=== PATIENT | male | born 1985 | race Caucasian/White ===

== ENCOUNTER 2019-07-09 01:00 | Inpatient (IN) | payer MEDICAID, SELFPAY ==
[2019-07-09] VITALS (10 sets, daily range): BP systolic 112–154; BP diastolic 59–88; PULSE 71–108; RESP 16–22; TEMP 35.9–37.1; O2SAT 97–100; BMI 32.2
--- NOTE | ~2019-07-09 | CT_ITS ---
EXAMINATION: CT pelvis wo con DATE: 07/14/2019 10:46 INDICATION: Left gluteal mass. TECHNIQUE: Computed tomography (CT) of the pelvis was performed without intravenous contrast. Automat ed exposure control and iterative reconstruction technique were employed. The dose-length product was 1604.44 mGy-cm. COMPARISON: Lumbar spine MRI 07/14/2019 FINDINGS: There are mixed solid and cystic masses including areas of hyperdense hematoma involving nu merous muscles bilaterally. Involved muscles on the left include the gluteus minimus, gluteus medius, gluteus katherine, piriformis, obturator internus, inferior gemellus, abductor porsha, vastus medialis , and vastus lateralis. Involved muscles on the right include the obturator internus, inferior gemell us, rectus femoris, vastus medialis, and vastus lateralis. There is bilateral subcutaneous edema. The re is a small volume of ascites. The bones are unremarkable. IMPRESSION: 1. Extensive distribution of abnormal musculature bilaterally, consistent with rhabdomyolysis. Reviewed, dictated and finalized at location A. EYANCER
--- NOTE | ~2019-07-09 | US_ITS ---
EXAMINATION: US venous doppler [facility] DATE: 07/10/2019 10:56 INDICATION: Right lower limb swelling TECHNIQUE: Grayscale ultrasound images without and with compression and Doppler ultrasound images of the bilateral lower extremity veins were obtained. COMPARISON: None. FINDINGS: The visualized portions of right common femoral vein, profunda (deep) femoral vein, femoral vein, pop liteal vein, posterior tibial veins, peroneal veins, gastrocnemius vein and greater saphenous vein ou tflow are patent. Short segment of noncompressible occlusive deep venous thrombosis in one of the paired left posterior tibial veins at the mid calf. The second of the paired left posterior tibial veins are patent. The v isualized portions of left common femoral vein, profunda femoral vein, femoral vein, popliteal vein, peroneal veins, gastrocnemius vein and greater saphenous vein outflow are patent. IMPRESSION: 1. Deep venous thrombosis in one of the paired left posterior tibial veins at the mid left calf. Fin dings were discussed with Joceline Rodriguez, the nurse caring for the patient, at 11:00 AM. 2. No deep venous thrombosis in the right lower limb. Reviewed, dictated and finalized at location A. TIME ENGINEER IMPRESSION: 1. Deep venous thrombosis in one of the paired left posterior tibial veins at the mid left calf. Findings were discussed with Joceline Rodriguez, the nurse sena for the patient, at 11:00 AM. 2. No deep venous thrombosis in the right lower limb.
--- NOTE | ~2019-07-09 | XR_ITS ---
EXAMINATION: XR chest 2V DATE: 07/20/2019 09:26 INDICATION: Fever TECHNIQUE: AP and lateral views of the chest are obtained. COMPARISON: None available FINDINGS: There are minimal airspace opacities of the lower lobes. There is no pleural effusion or pn eumothorax. The cardiomediastinal silhouette is normal. The visualized bones and soft tissues are unr emarkable. IMPRESSION: 1. Mild bibasilar airspace opacity, likely atelectasis. Reviewed, dictated and finalized at location A. TROCARDIOGRAPH REPAIRER
--- NOTE | ~2019-07-09 | CT_ITS ---
EXAMINATION: CT brain wo con DATE: 07/09/2019 03:07 INDICATION: Confusion. TECHNIQUE: Computed tomography (CT) of the head was performed without intravenous contrast. The mA wa s adjusted according to patient size. Iterative reconstruction technique was employed. The dose-lengt h product was 605.33 mGy-cm. COMPARISON: None FINDINGS: There is no intracranial hemorrhage, acute infarction, or abnormal intracranial mass lesion . The ventricles are normal in size. The paranasal sinuses are clear. The orbits are normal. The mast oid air cells are normal. IMPRESSION: 1. Normal brain. Reviewed, dictated and finalized at location A. E WINDER IMPRESSION: 1. Normal brain.
--- NOTE | ~2019-07-09 | MR_ITS ---
EXAMINATION: MR brain/brain stem wo con EXAM DATE: 07/11/2019 16:59 INDICATION: Confusion. TECHNIQUE: Magnetic resonance imaging (MRI) of the brain/brain stem obtained without contrast. Jalenitt al T1, axial diffusion, gradient echo (T2*), T1, T2, FLAIR sequences obtained. There is no prior st udy for comparison. FINDINGS: There is punctate acute infarction in the right frontal lobe. There is no acute hemorrhage seen on the T2*, a hemosiderin sensitive sequence. No intraparenchymal brain mass. The ventricles ar e normal in size. There are no extra-axial collections. Flow voids are seen in the cerebral arterie s on the T2-weighted sequences consistent with their expected patency. The orbits are unremarkable. Soft tissue is unremarkable. IMPRESSION: 1. Punctate acute right frontal lobe infarction. Reviewed, dictated and finalized at location A. ESTRATOR
--- NOTE | ~2019-07-09 | MR_ITS ---
EXAMINATION: MR lumbar spine wo con DATE: 07/14/2019 09:31 INDICATION: Left-sided lumbar radiculopathy. Back pain. TECHNIQUE: Magnetic resonance imaging (MRI) of the lumbar spine was performed without intravenous con trast. Sequences included sagittal T2-weighted FSE, sagittal T2-weighted FS FSE, sagittal T1-weighted FSE, and axial T2-weighted FSE. COMPARISON: Lumbar spine radiographs 05/26/2010 FINDINGS: The bandoleer packer images demonstrate a large cystic mass in the left gluteal muscles. Bone alignmen t is normal. Vertebral body heights are normal. There is mildly decreased disc height at L1-L2 and L4 -L5. The distal spinal cord signal intensity is normal. The conus medullaris is at L1. The following disc levels are specifically discussed: L1-L2: The disc is bulging. There is no facet joint osteoarthritis. There is no neural foraminal sten osis. There is mild central canal stenosis. L2-L3: The disc does not extend beyond the endplate margin. There is mild bilateral facet joint osteo arthritis. There is no neural foraminal stenosis. There is no central canal stenosis. L3-L4: The disc is mildly bulging. There is mild bilateral facet joint osteoarthritis. There is mild bilateral neural foraminal stenosis. There is no central canal stenosis. L4-L5: The disc is bulging and has an annular fissure. There is mild bilateral facet joint osteoarthr itis. There is mild right and moderate left neural foraminal stenosis. There is mild central canal st enosis. L5-S1: The disc does not extend beyond the endplate margin. There is mild bilateral facet joint osteo arthritis. There is no neural foraminal stenosis. There is no central canal stenosis. IMPRESSION: 1. Partially visualized large cystic mass in the left gluteal muscles. The differential diagnosis inc ludes hematoma, abscess, and malignancy. Pelvis CT without intravenous contrast is recommended. I elvira led this result to Dr. Johnson on 07/14/19 at 10:11 AM. 2. Mild lumbar spondylosis. Reviewed, dictated and finalized at location A. ONAL SALES EXECUTIVE IMPRESSION: 1. Partially visualized large cystic mass in the left gluteal muscles. The diff erential diagnosis includes hematoma, abscess, and malignancy. Pelvis CT withou t intravenous contrast is recommended. I called this result to Dr. Johnson on at 10:11 AM. 2. Mild lumbar spondylosis.
--- NOTE | ~2019-07-09 | US_ITS ---
EXAMINATION: US venous doppler [facility] DATE: 07/19/2019 13:12 INDICATION: Left lower limb swelling. TECHNIQUE: Grayscale ultrasound images without and with compression and Doppler ultrasound images of the bilateral lower extremity veins were obtained. COMPARISON: Ultrasound 07/16/2019 FINDINGS: The visualized portions of right common femoral vein, profunda (deep) femoral vein, femoral vein, pop liteal vein, peroneal veins, posterior tibial veins, and greater saphenous vein outflow are patent. The visualized portions of left common femoral vein, profunda femoral vein, femoral vein, popliteal v ein, peroneal veins, posterior tibial veins, and greater saphenous vein outflow are patent. IMPRESSION: 1. No deep venous thrombosis. Reviewed, dictated and finalized at location A. T CONTROLLER
--- NOTE | ~2019-07-09 | US_ITS ---
EXAMINATION: US venous doppler [facility] DATE: 07/16/2019 16:06 INDICATION: Lower limb swelling. TECHNIQUE: Grayscale ultrasound images without and with compression and Doppler ultrasound images of the bilateral lower extremity veins were obtained. COMPARISON: Ultrasound 07/10/2019 FINDINGS: The visualized portions of right common femoral vein, profunda (deep) femoral vein, femoral vein, pop liteal vein, peroneal veins, posterior tibial veins, and greater saphenous vein outflow are patent. The visualized portions of left common femoral vein, profunda femoral vein, femoral vein, popliteal v ein, peroneal veins, posterior tibial veins, and greater saphenous vein outflow are patent. IMPRESSION: 1. No deep venous thrombosis. Reviewed, dictated and finalized at location A. TRIC DOLLY OPERATOR
--- NOTE | ~2019-07-09 | US_ITS ---
EXAMINATION: US renal BI DATE: 07/10/2019 10:57 INDICATION: Acute renal failure. TECHNIQUE: Multiple ultrasound grayscale images of the kidneys were obtained. COMPARISON: None. FINDINGS: The right kidney measures 11.5 x 5.7 x 5.2 cm. The left kidney measures 11.5 x 5.3 x 5.1 cm. The kidn eys demonstrate normal parenchymal echogenicity. There is no hydronephrosis. The bladder is decompres sed by a Gutierrez catheter. IMPRESSION: 1. Normal kidneys. No hydronephrosis. Reviewed, dictated and finalized at location B. S CHASER
--- NOTE | 2019-07-09 01:09 | ED.AMS ---
HPI - Altered Mental Status General Chief Complaint: Unspecified Stated Complaint: altered mental status? Time Seen by Provider: 07/09/19 01:08 Source: patient, old records reviewed and other (Pt's girlfriend) Mode of arrival: ambulatory Limitations: no limitations History of Present Illness HPI narrative: The pt is a 33 y/o male who presents to the ED c/o confusion onset couple of days ago. Pt's girlfriend states that the pt was at this ED 3-4 days ago due to BLE pain. Per old records, pt presented to this ED on 07/05/19. She states that the past couple of days, the pt repetitively uttered the phrases What day is it? and How long have I been faded? despite the fact that he has not used any drugs. She states that the pt also could not remember information such as the President. She also states that she has only witnessed the pt go to the bathroom once in the past few days since she had to walk him there. The pt notes that he is experiencing bilateral calf pain onset four days ago, as well as BLE numbness which has occurred since the pain began. The pt denies dysuria, frequency, back pain, OG, numbness/tingling to the genitals, or feeling the urge to urinate. The pt notes that he has not suffered any recent falls, and that he does smoke cigarettes. Pt's girlfriend states that the pt does not have any PCP. MD complaint: confusion Onset (ago): day(s) (A couple) Consistency of symptoms: unknown Associated symptoms: other (Bilateral calf pain (Onset 4 days ago), BLE numbness (Onset 4 days ago)) Treatments prior to arrival: other (None) Related Data Allergies Allergy/AdvReac Type Severity Reaction Status Date / Time No Known Allergies Allergy Mild Verified 07/30/10 15:32 Review of Systems Review of Systems: All systems reviewed & are unremarkable except as noted in HPI and below Genitourinary: Genitourinary: Denies dysuria, Denies urinary frequency and Denies urinary urgency Musculoskeletal: Musculoskeletal: Denies back pain and Reports other (Bilateral calf pain (Onset 4 days ago)) Neurologic: Reports confusion, Denies headache(s), Reports numbness (BLE (Onset 4 days ago); denies any in the genitals) and Denies tingling (Genital) PMFSH Past Medical History Medical History Healthy adult Surgical History Surgical History No history of previous surgery Family History Family History (Updated 07/09/19 @ 06:25 by Josefina Osorio RN) Mother Unknown family medical history Father Unknown family medical history Social History Social History Smoking packs per day: 2 Smoking cigarettes per day: 40.0 Years smoked: 20 Smoking pack-years: 40.00 Smoking status: Current every day smoker Tobacco type: cigarettes Alcohol intake: never Substance use: current Substance use type: heroin, amphetamines and other Other substance usage details: BENZOS Gender identity (if verbalized by the patient): Male Spiritual care concerns: No Agree to blood products: Yes Exam Narrative: Exam Narrative: GENERAL: Well-appearing, well-nourished, and in no acute distress. HEAD: Normocephalic, atraumatic EYES: PERRLA and EOMI, conjunctiva clear without discharge EARS: TM's clear bilaterally without erythema or dullness NOSE: Nares clear, no rhinorrhea or epistaxis THROAT:dry oral mucosa, Oropharynx normal without erythema, exudate, peritonsillar swelling or fluctuance NECK: Supple, without lymphadenopathy or mass RESPIRATORY: No respiratory distress, Airway patent, Respirations non-labored, Clear to auscultation without rales, rhonchi or wheeze HEART: Tachycardia rate and regular rhythm. No murmur heard. Normal peripheral pulses. ABDOMEN: Soft, nontender, nondistended, normal active bowel sounds. No masses. No rebound or guarding, No organomegaly. EXTREMITIES: No
[2019-07-09 01:53] LABS: Basophils Percent Auto 0.3 % (0.2-1.2); Eosinophils Absolute Auto 0.1 K/mm3 (0-0.3); Eosinophils Percent Auto 0.6 % (0-4.4); Hematocrit 48.9 % (42.0-52.0); Hemoglobin 17.4 g/dL (14.0-18.0); Immature Granulocyte Absolute 0.11 K/mm3 (0.00-0.031); Immature Granulocyte Percent A 0.8 % (0-0.5); Lymphocytes Absolute Auto 0.99 K/mm3 (0.9-3.2); Lymphocytes Percent Auto 7.6 % (18.3-44.2); Mean Corpuscular HGB Conc 35.6 g/dl (32-36); Mean Corpuscular Hemoglobin 30.4 pg (26-34); Mean Corpuscular Volume 85.3 fl (80-100); Monocytes Absolute Auto 1.8 K/mm3 (0.1-0.6); Monocytes Percent Auto 13.5 % (2.6-8.5); Neutrophils Absolute Auto 10.1 K/mm3 (1.3-6.7); Neutrophils Percent Auto 77.2 % (45.5-73.1); Platelet Count Result 279 k/mm3 (150-375); Red Blood Count 5.73 M/mm3 (4.6-6.20); Red Cell Distribution Width 13.5 % (11.5-14.5); White Blood Count 13.1 K/mm3 (4.5-10.0)
[2019-07-09 02:14] LABS: Alanine Aminotransferase 689 U/L (4-50); Albumin Level 3.8 g/dL (3.5-5.1); Alkaline Phosphatase 79 U/L (38-126); Bilirubin,Total 0.9 mg/dL (0.2-1.3); CRP 6.2 mg/dL (<1.0); Calcium 8.4 mg/dL (8.4-10.2); Carbon Dioxide 20 mmol/L (22-30); Chloride 88 mmol/L (98-107); Estimated CRCL calculation 12 ml/min; Estimated Glomerular Filt Rate 6; Glucose 110 mg/dL (75-110); Potassium 5.3 mmol/L (3.4-5.0); Sodium 127 mmol/L (137-145)
[2019-07-09 02:16] LABS: Ethanol < 10 mg/dL (<10)
[2019-07-09 02:38] LABS: Aspartate Amino Transferase 1306 U/L (17-59); Blood Urea Nitrogen 131 mg/dL (9-20)
[2019-07-09 03:11] LABS: Folic Acid 8.9 ng/mL (2.76->20)
[2019-07-09 03:32] LABS: INR 1.1; Prothrombin Time 13.5 Seconds (11.1-14.7)
[2019-07-09 03:33] LABS: Partial Thromboplastin Time 28.1 SECONDS (22.3-36.8)
[2019-07-09] MEDS: LACTATED RINGERS 1,000 ML 999 ML IV CONT ×2 (03:47→03:48)
[2019-07-09 04:17] LABS: Barbiturate Screen Urine Negative (Negative); Benzodiazepines Screen Urine Positive (Negative)
[2019-07-09 04:18] LABS: Cannabinoid Screen Urine Negative (Negative); Cocaine Screen Urine Negative (Negative); Methadone Screen Urine Negative (Negative); Opiate Screen Urine Negative (Negative); Phencyclidine Screen Urine Negative (Negative)
[2019-07-09 04:18] LABS: Creatine Kinase > 16000 U/L (55-170)
[2019-07-09 04:42] LABS: Amphetamine Screen Urine Positive (Negative)
--- NOTE | 2019-07-09 05:20 | PC.NURSE ---
PATIENT ADMITS TO USING METH TONIGHT.
--- NOTE | 2019-07-09 06:28 | ADMGEN ---
This patient, Sabas Zazueta, was admitted to IMU Room 231-01. Patient/family oriented to hospital policies and general routines including ID bracelet, bed and alarms, visiting hours, pain management, procedures, bathroom and other care routines, personal items, smoking policy, room service/diet, and visiting hours. Valuables list has been completed. Information on how to activate the Rapid Response Team has been discussed. Patient/Family are encouraged to report perceived risks to care and to ask questions if they do not understand what they are told or what they should do.
[2019-07-09] MEDS: SODIUM BICARBONATE 8.4% 150 MEQ in DEXTROSE 5% 1,000 ML 950 ML 50 MEQ IV CONT (07:00)
[2019-07-09 09:06] LABS: Creatine Kinase > 16000 U/L (55-170)
--- NOTE | 2019-07-09 09:16 | PM.IMHP ---
H&P: HPI History of Present Illness Chief complaint: ACUTE RENAL FAILURE RHABDOMYOLYSIS Narrative: Date of visit 07/10/2019 0830. Sabas Zazueta is a 33 year old male who presented to the emergency room with complaints of weakness, swollen leg, and forgetfulness.. Patient has no active medical problems but routinely uses methamphetamine, benzodiazepines, and occasional narcotics and marijuana. He within the emergency room on the with complaints pain in his swelling in his right leg and that time head bedside Doppler was reported as normal and was discharged home because physical findings were minimal. According to patient and his girlfriend he progressively worsened with increasing weakness and pain and came back for evaluation. He denies any trauma or previous history of renal disease. He is adopted but knows his biological mother was a heroin addict. Girlfriend relates that he has not been urinating much and denies any dysuria, fever, chills or flank pain Review of Systems Review of Systems: Narrative: Constitutionally stays appetite has been good no weight loss with weight stable and no fever Eyes no double vision or scotoma Mouth no pharyngitis or laryngitis Lungs no shortness breath or cough CV no chest pain or palpitation GI no melena, hematochezia or diarrhea as above Muscle skeletal the right leg discomfort and generalized weakness Neuro alert but admits to being confused and forgetful with no history of seizures Integument no known skin breakdown her are rashes The remainder review of systems if not documented here or evaluated and found to be negative [facility] Past Medical History Medical History Healthy adult Surgical History Surgical History No history of previous surgery Family History Family History (Updated 07/09/19 @ 06:25 by Josefina Osorio RN) Mother Unknown family medical history Father Unknown family medical history Social History Social History Smoking packs per day: 2 Smoking cigarettes per day: 40.0 Years smoked: 20 Smoking pack-years: 40.00 Smoking status: Current every day smoker Tobacco type: cigarettes Alcohol intake: never Substance use: current Substance use type: heroin, amphetamines and other Other substance usage details: BENZOS Gender identity (if verbalized by the patient): Male Spiritual care concerns: No Agree to blood products: Yes Comments No previous medical problems as above and unknown family history due to the fact the patient is adopted Does know that his biological mother was a heroin addict Meds Home Medications and Allergies Home Medications Medication Instructions Recorded Confirmed Type No Home Medications 07/09/19 07/09/19 History Allergies Allergy/AdvReac Type Severity Reaction Status Date / Time No Known Allergies Allergy Mild Verified 07/30/10 15:32 Vital Signs Vital Signs - 24 hr 07/09/19 01:05 07/09/19 01:21 07/09/19 02:59 Temperature 35.9 C L 36.4 C L 37.0 C Pulse Rate 102 H 90 97 Respiratory Rate 16 18 19 Blood Pressure 123/65 154/88 H 113/59 L Pulse Oximetry 98 100 100 07/09/19 04:19 07/09/19 05:15 07/09/19 05:49 Temperature 36.9 C Pulse Rate 91 71 75 Respiratory Rate 16 16 19 Blood Pressure 112/65 136/75 147/85 H Pulse Oximetry 100 100 100 07/09/19 06:00 07/09/19 08:00 Temperature 36.8 C Pulse Rate 108 H 94 Respiratory Rate 18 Blood Pressure 143/76 H Pulse Oximetry 100 Exam Narrative: Exam Narrative: Blood pressure 146/84 pulse is 76 satting 98% on room air afebrile Pupils equal and reactive to light sclera anicteric Mouth normal mucosa Neck supple no adenopathy thyromegaly or carotid bruits Lungs clear no wheezing or consolidation CV regular rate rhythm no murmurs or gallops Abdomen is soft nontender no masses or org
[2019-07-09 09:37] LABS: Albumin Level 2.9 g/dL (3.5-5.1); Calcium 7.7 mg/dL (8.4-10.2); Carbon Dioxide 24 mmol/L (22-30); Chloride 90 mmol/L (98-107); Estimated CRCL calculation 14 ml/min; Estimated Glomerular Filt Rate 6; Glucose 117 mg/dL (75-110); Phosphorus 6.5 mg/dL (2.5-4.5); Potassium 4.8 mmol/L (3.4-5.0); Sodium 127 mmol/L (137-145)
[2019-07-09 09:44] LABS: Blood Urea Nitrogen 130 mg/dL (9-20); Hepatitis B Surface Antigen Negative (Negative)
[2019-07-09 09:50] LABS: HAV RESULT Negative (Negative); Hepatitis B Core IgM Result Negative (Negative)
[2019-07-09 10:05] LABS: Hepatitis C Virus Antibody Reactive (Negative)
[2019-07-09 11:10] LABS: Add Urine Microscopic? YES; Appearance Urine Clear (Clear); Bacteria Urine Trace /hpf; Bilirubin Urine Negative (Negative); Blood Urine 3+ (Negative); Color Urine Yellow (Yellow); Glucose Urine UA 1+ mg/dL (Negative); Ketones Urine Negative (Negative); Leukocyte Esterase Ur Trace LEU/UL (NEGATIVE); Mucus Urine Rare /lpf; Nitrate Urine Negative (Negative); Protein Urine 1+ mg/dL (Negative); Specific Grav Ur 1.011 (1.001-1.035); Squamous Epithelial Cell Urine Rare /hpf (Few); Urobilinogen Urine Negative mg/dL (<2.0)
--- NOTE | 2019-07-09 11:55 | PC.NURSE ---
This patient, Sabas Zazueta, was transferred to [facility] on 07/09/19 at 1155. Personal belongings sent with patient. Report given to DARIN Pearce. Appropriate documentation sent with patient.
--- NOTE | 2019-07-09 12:33 | PC.NURSE ---
Rec'd from IMU per bed at 1200.
[2019-07-09] MEDS: SODIUM BICARBONATE 8.4% 150 MEQ in DEXTROSE 5% 1,000 ML 950 ML IV CONT ×2 (13:52→23:47)
[2019-07-09] MEDS: HEPARIN SODIUM 5,000 UNITS/ML VIAL 5000 UNITS SUB-Q ×2 (13:56→21:32)
--- NOTE | 2019-07-09 14:13 | PM.CNNEP ---
Assessment and Plan Assessment and plan (1) Acute renal failure: Qualifiers: Acute renal failure type: unspecified Qualified Code(s): N17.9 - Acute kidney failure, unspecified Code(s): N17.9 - Acute kidney failure, unspecified Status: Acute Assessment and Plan: Sabas has renal failure. This could be due to several causes. He does have rhabdomyolysis. His CPK is very high. Will continue IV fluids with bicarb. Will check a urine pH tomorrow to make sure it is alkaline. He was probably dehydrated because he was confused for 2 days and possibly did not eat. He was taking her when and so the contaminant could cause some damage to his kidney or he could have heroin nephropathy (FSGS) He has multiple tattoos and elevated liver enzyme so could have hepatitis and the renal sequelae from that. Hepatitis studies have been drawn already. Sodium is low due to the renal failure. Phosphorus is high due to the renal failure. Will follow these as we hydrate. (2) Rhabdomyolysis: Qualifiers: Rhabdomyolysis type: non-traumatic Qualified Code(s): M62.82 - Rhabdomyolysis Code(s): M62.82 - Rhabdomyolysis Status: Acute Assessment and Plan: The patient has rhabdomyolysis. Etiology is unclear. Possibly from a contaminant of the heroin or meth? Virus could do this as well His leg musculature is supple so I do not think he has compartment syndrome. I doubt if he has polymyositis but we can check some serology. (3) Elevated LFTs: Code(s): R94.5 - Abnormal results of liver function studies Status: Acute Assessment and Plan: Patient has high liver enzymes. This may be from the rhabdomyolysis but could be from the liver as well. Evaluation is underway (4) Altered mental status: Code(s): R41.82 - Altered mental status, unspecified Status: Acute Assessment and Plan: This has improved. (5) Drug abuse: Code(s): F19.10 - Other psychoactive substance abuse, uncomplicated Status: Acute Assessment and Plan: He uses meth and heroin. We discussed trying to stop. History of Present Illness Reason for Consult Consult date: 07/09/19 Chief Complaint Chief complaint: ACUTE RENAL FAILURE RHABDOMYOLYSIS History of Present Illness Narrative: Sabas is a 33-year-old gentleman who has chronic drug abuse consisting of heroin and meth. The last time he did these was yesterday he says now. He came to the ER because his girlfriend said that he had not had any drugs for 48 hours and was still confused so brought him over to the hospital. Use evaluated in the emergency room and found to have a very high CPK and renal failure. Renal consultation was requested. Patient denies any prior history of kidney disease. He has no bloody urine, foamy urine, kidney stones, or bladder infections. He does not take any nonsteroidal anti-inflammatory agents he says. Patient denies any chest pain or shortness of breath. No fevers or chills. No skin rash or joint pains. No sores in his mouth. He does not cough up any blood. His feet hurt. Review of Systems Constitutional: Constitutional: Reports no additional constitutional complaints Eyes: Eyes: Reports no additional eye complaints ENT: Reports system reviewed and no additional complaints, except as documented Cardiovascular: Cardiovascular: Reports no additional cardiovascular complaints Respiratory: Respiratory: Reports no additional respiratory complaints Gastrointestinal: Gastrointestinal: Reports no additional gastrointestinal complaints Genitourinary: Genitourinary: Reports no additional male genitourinary complaints Musculoskeletal: Musculoskeletal: Reports no additional musculoskeletal complaints Integumentary/Breasts: Skin/Breast: Reports system reviewed and no additional complaints, except as docu Neurologic: Reports system reviewed and no additional complaints, exc
[2019-07-09 15:42] LABS: Complement C3 90 mg/dL (88-165)
[2019-07-09 15:43] LABS: Erythrocyte Sedimentation Rate 17 mm/hr (0-20)
[2019-07-09 16:22] LABS: Creatine Kinase 14859 U/L (55-170)
[2019-07-10 00:18] VITALS: PULSE 88; RESP 18; O2SAT 100
[2019-07-10 06:00] VITALS: BP 137/81; PULSE 82; RESP 16; TEMP 36.8; O2SAT 98
[2019-07-10] MEDS: SODIUM BICARBONATE 8.4% 150 MEQ in DEXTROSE 5% 1,000 ML 950 ML IV CONT ×3 (06:24→21:06)
[2019-07-10] MEDS: HEPARIN SODIUM 5,000 UNITS/ML VIAL 5000 UNITS SUB-Q (06:27)
[2019-07-10 06:36] LABS: Basophils Percent Auto 0.3 % (0.2-1.2); Eosinophils Absolute Auto 0.2 K/mm3 (0-0.3); Eosinophils Percent Auto 1.2 % (0-4.4); Hematocrit 43.5 % (42.0-52.0); Hemoglobin 15.7 g/dL (14.0-18.0); Immature Granulocyte Absolute 0.11 K/mm3 (0.00-0.031); Immature Granulocyte Percent A 0.9 % (0-0.5); Lymphocytes Absolute Auto 1.82 K/mm3 (0.9-3.2); Lymphocytes Percent Auto 14.2 % (18.3-44.2); Mean Corpuscular HGB Conc 36.1 g/dl (32-36); Mean Corpuscular Hemoglobin 30.4 pg (26-34); Mean Corpuscular Volume 84.1 fl (80-100); Mean Platelet Volume 10.2 fl (7.4-10.4); Monocytes Absolute Auto 1.8 K/mm3 (0.1-0.6); Monocytes Percent Auto 14.3 % (2.6-8.5); Neutrophils Absolute Auto 8.8 K/mm3 (1.3-6.7); Neutrophils Percent Auto 69.1 % (45.5-73.1); Platelet Count Result 251 k/mm3 (150-375); Red Blood Count 5.17 M/mm3 (4.6-6.20); Red Cell Distribution Width 13.3 % (11.5-14.5); White Blood Count 12.8 K/mm3 (4.5-10.0)
[2019-07-10 07:55] LABS: Alanine Aminotransferase 303 U/L (4-50); Albumin Level 2.6 g/dL (3.5-5.1); Alkaline Phosphatase 42 U/L (38-126); Aspartate Amino Transferase 428 U/L (17-59); Bilirubin,Total 0.9 mg/dL (0.2-1.3); Carbon Dioxide 28 mmol/L (22-30); Chloride 87 mmol/L (98-107); Creatine Kinase 10566 U/L (55-170); Estimated CRCL calculation 15 ml/min; Estimated Glomerular Filt Rate 7; Glucose 103 mg/dL (75-110); Phosphorus 6.4 mg/dL (2.5-4.5); Potassium 3.8 mmol/L (3.4-5.0); Sodium 128 mmol/L (137-145)
[2019-07-10 07:56] LABS: Blood Urea Nitrogen 129 mg/dL (9-20)
--- NOTE | 2019-07-10 12:01 | PC.NURSE ---
Patient stated that he wants his sister to be kicked out of the room and to not have anymore information be given to her. Patient has been educated that no information will be given to any visitors. Test results and health information will be provided to the patient only and the patient can choose who he will share that information to.
[2019-07-10 13:19] LABS: Basophils Percent Auto 0.3 % (0.2-1.2); Eosinophils Absolute Auto 0.1 K/mm3 (0-0.3); Eosinophils Percent Auto 1.1 % (0-4.4); Hematocrit 43.6 % (42.0-52.0); Hemoglobin 15.7 g/dL (14.0-18.0); Immature Granulocyte Absolute 0.16 K/mm3 (0.00-0.031); Immature Granulocyte Percent A 1.3 % (0-0.5); Lymphocytes Absolute Auto 1.59 K/mm3 (0.9-3.2); Mean Corpuscular Hemoglobin 30.2 pg (26-34); Mean Corpuscular Volume 83.8 fl (80-100); Mean Platelet Volume 9.6 fl (7.4-10.4); Monocytes Absolute Auto 1.8 K/mm3 (0.1-0.6); Monocytes Percent Auto 14.7 % (2.6-8.5); Neutrophils Absolute Auto 8.5 K/mm3 (1.3-6.7); Neutrophils Percent Auto 69.6 % (45.5-73.1); Platelet Count Result 248 k/mm3 (150-375); Red Cell Distribution Width 13.6 % (11.5-14.5); White Blood Count 12.2 K/mm3 (4.5-10.0)
[2019-07-10 13:31] LABS: INR 1.2; Prothrombin Time 14.7 Seconds (11.1-14.7)
[2019-07-10 14:00] VITALS: BP 136/81; PULSE 83; RESP 20; TEMP 36.3; O2SAT 99
[2019-07-10] MEDS: HEPARIN SOD/D5W 100 UNITS/ML 25,000 UNITS/250 ML BAG 15 UNITS IV CONT (14:04)
[2019-07-10] MEDS: HEPARIN SODIUM 5,000 UNITS/ML VIAL 7500 UNITS IV PUSH (14:06)
--- NOTE | 2019-07-10 16:22 | PM.PNNEP ---
Progress Note: A&P Assessment and Plan (1) Acute renal failure: Qualifiers: Acute renal failure type: unspecified Qualified Code(s): N17.9 - Acute kidney failure, unspecified Code(s): N17.9 - Acute kidney failure, unspecified Status: Acute Assessment and Plan: Sabas has renal failure. Renal ultrasound is normal. Urine has blood (due to rhabdo), glucose (unclear why), protein, and white cells (will get urine culture). Urine electrolytes and eosinophils are pending. This could be due to several causes. Rhabdomyolysis and dehydration are high on the list. Less likely causes include severe chronic kidney disease as result of IV drug abuse or hepatitis but the normal kidney size makes the is a less likely. Will continue IV fluids. It is okay to pull his Gutierrez catheter. Sodium is a little better. Phosphorus is a little better. Will follow these as we hydrate. Discussed with patient and father. Also discussed with Dr. Johnson. More than 23 minutes were spent in discussion with patient, father, and Dr. Johnson beyond clinical activities. (2) Rhabdomyolysis: Qualifiers: Rhabdomyolysis type: non-traumatic Qualified Code(s): M62.82 - Rhabdomyolysis Code(s): M62.82 - Rhabdomyolysis Status: Acute Assessment and Plan: The patient has rhabdomyolysis. Etiology is unclear. Possibly from a contaminant of the heroin or meth? Virus could do this as well His leg musculature is supple so I do not think he has compartment syndrome. I doubt if he has polymyositis. Check a Jasmine-1 antibody. TESHA pending (3) Elevated LFTs: Code(s): R94.5 - Abnormal results of liver function studies Status: Acute Assessment and Plan: Patient has high liver enzymes. This may be from the rhabdomyolysis but could be from the liver as well. Hepatitis B are negative. Hepatitis-C is positive and viral count is pending. (4) Altered mental status: Code(s): R41.82 - Altered mental status, unspecified Status: Acute Assessment and Plan: This has improved. (5) Drug abuse: Code(s): F19.10 - Other psychoactive substance abuse, uncomplicated Status: Acute Assessment and Plan: He uses meth and heroin. (6) DVT (deep venous thrombosis): Code(s): I82.409 - Acute embolism and thrombosis of unspecified deep veins of unspecified lower extremity Status: Acute Assessment and Plan: Patient is on heparin. Subjective Date/time seen: 07/10/19 16:22 Interval history: Patient is alert. Eyes closed and not very interactive by choice. Father is in the room. Patient says he is eating okay. He said he has no chest pain or shortness of breath His feet hurt. He is getting warm blankets for this. Review of Systems Cardiovascular: Cardiovascular: Reports no additional cardiovascular complaints Respiratory: Respiratory: Reports no additional respiratory complaints Gastrointestinal: Gastrointestinal: Reports no additional gastrointestinal complaints Genitourinary: Genitourinary: Reports no additional male genitourinary complaints Exam Narrative: Exam Narrative: Well developed well-nourished in no acute distress Lungs clear Heart regular without rub Abdomen bowel sounds positive soft nontender Extremities no edema Skin no rash Objective Data Vital Signs Vital Signs: Vital Signs - 24 hr 07/09/19 22:00 07/10/19 00:18 07/10/19 06:00 Temperature 37.1 C 36.8 C Pulse Rate 88 88 82 Respiratory Rate 18 18 16 Blood Pressure 131/76 137/81 Pulse Oximetry 100 100 98 07/10/19 14:00 Temperature 36.3 C L Pulse Rate 83 Respiratory Rate 20 Blood Pressure 136/81 Pulse Oximetry 99 Intake/Output Intake/Output: Intake & Output 07/07/19 07/08/19 07/09/19 07/10/19 23:59 23:59 23:59 23:59 Intake Total 3660 3560 Output Total 1950 2100 Balance 1710 1460 Meds/Results Medications: Acti
--- NOTE | 2019-07-10 16:31 | PM.IMPN ---
Progress Note: A&P Assessment and Plan (1) Acute renal failure: Qualifiers: Acute renal failure type: unspecified Qualified Code(s): N17.9 - Acute kidney failure, unspecified Code(s): N17.9 - Acute kidney failure, unspecified Status: Acute Assessment and Plan: Probable all acute renal failure and renal sonogram shows normal-sized kidneys which would validate that also. Continue hydration and follow CPK (2) Rhabdomyolysis: Qualifiers: Rhabdomyolysis type: non-traumatic Qualified Code(s): M62.82 - Rhabdomyolysis Code(s): M62.82 - Rhabdomyolysis Status: Acute Assessment and Plan: Probable secondary to drug abuse. Hydrating aggressively and CK and creatinine are improved. Watch right leg for any signs of compartment syndrome but is soft and CK is falling (3) Swelling of right lower extremity: Code(s): M79.89 - Other specified soft tissue disorders Status: Acute Assessment and Plan: Probably secondary to the rhabdo and venous Doppler shows small DVT in left leg not right (4) Drug abuse: Code(s): F19.10 - Other psychoactive substance abuse, uncomplicated Status: Acute Assessment and Plan: Observe for any signs of withdrawal (5) Elevated LFTs: Code(s): R94.5 - Abnormal results of liver function studies Status: Acute Assessment and Plan: AST markedly elevated probably secondary to rhabdo but ALT also increased and withdrawing history will check hepatitis profile and possible ultrasound right upper quadrant later Hep C is positive and hep C for are and pending. Patient relates that he is familiar with this diagnosis but has not sought any treatment for. (6) DVT prophylaxis: Code(s): Z29.9 - Encounter for prophylactic measures, unspecified Status: Acute Assessment and Plan: Full-dose heparin now with DVT (7) Altered mental status: Code(s): R41.82 - Altered mental status, unspecified Status: Acute Assessment and Plan: Probable drug-induced or metabolic encephalopathy from the uremia. CT negative and will continue to monitor (8) DVT (deep venous thrombosis): Code(s): I82.409 - Acute embolism and thrombosis of unspecified deep veins of unspecified lower extremity Status: Acute Assessment and Plan: Full-dose heparin with his renal failure. Transition to oral within the next 24-48 hr. Subjective Date/time seen: 07/10/19 16:32 Interval history: Date of visit 07/10/2019. 33-year-old white male drug abuser admitted with acute renal failure, rhabdo mild lysis, and metabolic encephalopathy. In little less agitated and less confused today but still loss of short term memory Not complaining of leg pain Exam Narrative: Exam Narrative: Blood pressure 136/82 pulse is 82 satting 99% on room air afebrile Pupils equal and reactive to light sclera anicteric Mouth normal mucosa Neck supple no adenopathy thyromegaly or carotid bruits Lungs clear no wheezing or consolidation CV regular rate rhythm no murmurs or gallops Abdomen is soft nontender no masses or organomegaly Extremities without a edema on the left, right leg is noticeably more prominent than the left up into the thigh and is warm There are abrasions on the dorsum of his toes on both feet Integument multiple tattoos on his extremities Neck trunk Neuro alert cooperative no focal deficits, no appreciable weakness in extremities, oriented to person and place but not date or time still Objective Data Vital Signs Vital Signs: Vital Signs - 24 hr 07/09/19 22:00 07/10/19 00:18 07/10/19 06:00 Temperature 37.1 C 36.8 C Pulse Rate 88 88 82 Respiratory Rate 18 18 16 Blood Pressure 131/76 137/81 Pulse Oximetry 100 100 98 07/10/19 14:00 Temperature 36.3 C L Pulse Rate 83 Respiratory Rate 20 Blood Pressure 136/81 Pulse Oximetry 99 Intake/Output Intake/Output: Intake & Output 07/07/19 07/08/19
--- NOTE | 2019-07-10 20:41 | PM.IMPN ---
Subjective Date/time seen: 07/10/19 20:41 cross coverage. The patient is very upset that his girlfriend would not be allowed to stay the night. I explained that i could not discharge him due to his poor renal function and blood clot. The patient had wanted to sign out ama. The patient is angry and yelling out foul words. He was talking on the phone and did not want to talk to me at the time. I explained the necessity of him staying in the hospital and that we would not discharge him to home. Objective Data Vital Signs Vital Signs: Vital Signs - 24 hr 07/09/19 22:00 07/10/19 00:18 07/10/19 06:00 Temperature 37.1 C 36.8 C Pulse Rate 88 88 82 Respiratory Rate 18 18 16 Blood Pressure 131/76 137/81 Pulse Oximetry 100 100 98 07/10/19 14:00 Temperature 36.3 C L Pulse Rate 83 Respiratory Rate 20 Blood Pressure 136/81 Pulse Oximetry 99 Intake/Output Intake/Output: Intake & Output 07/07/19 07/08/19 07/09/19 07/10/19 23:59 23:59 23:59 23:59 Intake Total 3660 4160 Output Total 1950 4100 Balance 1710 60 Meds/Results Medications: Active Medications Generic Name Dose Route Start Last Admin Trade Name Freq PRN Reason Stop Dose Admin Heparin Sodium (Porcine) 7,500 units 07/10/19 12:19 Heparin Sodium IV PUSH PRN PRN aPTT less than 55 seconds Heparin Sodium (Porcine) 4,000 units 07/10/19 12:19 Heparin Sodium IV PUSH PRN PRN aPTT 55 - 70 seconds Sodium Bicarbonate 150 meq/ 1,100 mls @ 150 mls/hr 07/09/19 21:55 07/10/19 14:01 Dextrose IV CONT 150 mls/hr .[id number] HILARIA Administration Heparin Sodium/Dextrose 25,000 units in 250 mls @ 15 mls/hr 07/10/19 12:20 07/10/19 14:04 Heparin Sodium/D5w 100 Units/Ml IV CONT 15 ml/hr .[id number] HILARIA 15 mls/hr Administration Protocol Radiology Results: ITS Impressions Head CT 07/09/19 07:18 IMPRESSION: 1. Normal brain. Venous Doppler Study 07/10/19 10:57 IMPRESSION: 1. Deep venous thrombosis in one of the paired left posterior tibial veins at the mid left calf. Findings were discussed with Joceline Rodriguez, the nurse caring for the patient, at 11:00 AM. 2. No deep venous thrombosis in the right lower limb. Renal Ultrasound 07/10/19 10:59 IMPRESSION: 1. Normal kidneys. No hydronephrosis. Labs Labs: Laboratory Results - last 24 hr 07/10/19 07/10/19 07/10/19 05:41 05:41 05:41 WBC 12.8 H RBC 5.17 Hgb 15.7 Hct 43.5 MCV 84.1 MCH 30.4 MCHC 36.1 H RDW 13.3 Plt Count 251 MPV 10.2 Immature Gran % (Auto) 0.9 H Neut % (Auto) 69.1 Lymph % (Auto) 14.2 L [place] % (Auto) 14.3 H Eos % (Auto) 1.2 Baso % (Auto) 0.3 Lymph # (Auto) 1.82 [place] # (Auto) 1.8 H Eos # (Auto) 0.2 Baso # (Auto) 0.0 Abs Immat Gran (auto) 0.11 H Absolute Neuts (auto) 8.8 H Absolute Nucleated RBC 0.0 Nucleated RBC % 0.0 PT INR APTT Sodium 128 L Potassium 3.8 Chloride 87 L Carbon Dioxide 28 BUN 129 H Creatinine 8.70 H Estim Creat Clear Calc 15 Estimated GFR 7 L Glucose 103 Calcium 7.0 L Phosphorus 6.4 H Magnesium 2.0 Total Bilirubin 0.9 AST 428 H ALT 303 H Alkaline Phosphatase 42 Total Creatine Kinase 75783 H Total Protein 5.0 L Albumin 2.6 L TSH (Reflex) 2.390 07/10/19 07/10/19 07/10/19 13:03 13:03 20:18 WBC 12.2 H RBC 5.20 Hgb 15.7 Hct 43.6 MCV 83.8 MCH 30.2 MCHC 36.0 RDW 13.6 Plt Count 248 MPV 9.6 Immature Gran % (Auto) 1.3 H Neut % (Auto) 69.6 Lymph % (Auto) 13.0 L King[place] % (Auto) 14.7 H Eos % (Auto) 1.1 Baso % (Auto) 0.3 Lymph # (Auto) 1.59 [place] # (Auto) 1.8 H Eos # (Auto) 0.1 Baso # (Auto) 0.0 Abs Immat Gran (auto) 0.16 H Absolute Neuts (auto) 8.5 H Absolute Nucleated RBC 0.0 Nucleated RBC % 0.0 PT 14.7 INR 1.2 APTT 27.0 89.0 H Sodium Potassium Chlori
[2019-07-11 02:53] LABS: Basophils Absolute Auto 0.1 K/mm3 (0.0-0.1); Basophils Percent Auto 0.5 % (0.2-1.2); Eosinophils Absolute Auto 0.2 K/mm3 (0-0.3); Eosinophils Percent Auto 1.5 % (0-4.4); Hematocrit 43.2 % (42.0-52.0); Hemoglobin 15.6 g/dL (14.0-18.0); Immature Granulocyte Absolute 0.23 K/mm3 (0.00-0.031); Immature Granulocyte Percent A 1.7 % (0-0.5); Lymphocytes Absolute Auto 1.88 K/mm3 (0.9-3.2); Lymphocytes Percent Auto 14.3 % (18.3-44.2); Mean Corpuscular HGB Conc 36.1 g/dl (32-36); Mean Corpuscular Hemoglobin 30.8 pg (26-34); Mean Corpuscular Volume 85.4 fl (80-100); Mean Platelet Volume 9.6 fl (7.4-10.4); Monocytes Absolute Auto 1.8 K/mm3 (0.1-0.6); Monocytes Percent Auto 13.4 % (2.6-8.5); Neutrophils Absolute Auto 9.1 K/mm3 (1.3-6.7); Neutrophils Percent Auto 68.6 % (45.5-73.1); Platelet Count Result 225 k/mm3 (150-375); Red Blood Count 5.06 M/mm3 (4.6-6.20); Red Cell Distribution Width 13.7 % (11.5-14.5); White Blood Count 13.2 K/mm3 (4.5-10.0)
[2019-07-11 02:57] LABS: Partial Thromboplastin Time 51.4 SECONDS (22.3-36.8)
[2019-07-11 03:17] LABS: Alanine Aminotransferase 221 U/L (4-50); Albumin Level 2.6 g/dL (3.5-5.1); Alkaline Phosphatase 41 U/L (38-126); Aspartate Amino Transferase 262 U/L (17-59); Bilirubin,Total 0.9 mg/dL (0.2-1.3); Blood Urea Nitrogen 120 mg/dL (9-20); Carbon Dioxide 36 mmol/L (22-30); Chloride 80 mmol/L (98-107); Estimated CRCL calculation 18 ml/min; Estimated Glomerular Filt Rate 9; Glucose 114 mg/dL (75-110); Magnesium 1.8 mg/dL (1.6-2.3); Phosphorus 6.4 mg/dL (2.5-4.5); Potassium 3.4 mmol/L (3.4-5.0); Sodium 127 mmol/L (137-145)
[2019-07-11] MEDS: HEPARIN SODIUM 5,000 UNITS/ML VIAL 7500 UNITS IV PUSH ×2 (03:29→19:13)
[2019-07-11 03:36] LABS: Creatine Kinase 5799 U/L (55-170)
[2019-07-11] MEDS: SODIUM BICARBONATE 8.4% 150 MEQ in DEXTROSE 5% 1,000 ML 950 ML IV CONT ×2 (04:59→11:50)
[2019-07-11 05:38] VITALS: BP 148/69; PULSE 78; RESP 20; TEMP 37; O2SAT 99
[2019-07-11] MEDS: HEPARIN SOD/D5W 100 UNITS/ML 25,000 UNITS/250 ML BAG 19 UNITS IV CONT (06:32)
[2019-07-11 10:17] LABS: Partial Thromboplastin Time 158.5 SECONDS (22.3-36.8)
[2019-07-11 10:34] LABS: Complement Total CH50 >60 U/mL (31-60)
[2019-07-11] MEDS: SODIUM CHLORIDE 0.9% IV 1,000 ML 100 ML IV CONT (14:42)
--- NOTE | 2019-07-11 14:53 | PM.PNNEP ---
Progress Note: A&P Assessment and Plan (1) Acute renal failure: Qualifiers: Acute renal failure type: unspecified Qualified Code(s): N17.9 - Acute kidney failure, unspecified Code(s): N17.9 - Acute kidney failure, unspecified Status: Acute Assessment and Plan: Sabas has renal failure. Renal ultrasound is normal. Urine has blood (due to rhabdo), glucose (unclear why), protein, and white cells (will get urine culture). Urine electrolytes and eosinophils leaked and not communicated to floor staff and so no more urine was sent down. Will reorder. This could be due to several causes. Rhabdomyolysis and dehydration are high on the list. Less likely causes include severe chronic kidney disease as result of IV drug abuse or hepatitis but the normal kidney size makes the is a less likely. Will continue IV fluids. It is okay to pull his Gutierrez catheter. Sodium and phosphorus are about the same. Will follow these as we hydrate. Long discussion with patient and friend. He has rhabdomyolysis. This is causing his renal failure. The CK levels have come down and his creatinine is improving gradually. (2) Rhabdomyolysis: Qualifiers: Rhabdomyolysis type: non-traumatic Qualified Code(s): M62.82 - Rhabdomyolysis Code(s): M62.82 - Rhabdomyolysis Status: Acute Assessment and Plan: The patient has rhabdomyolysis. Etiology is unclear. Possibly from a contaminant of the heroin or meth? Virus could do this as well His legs hurt quite a bit. He does have pretty good distal pulses. It would be hard to believe this was compartment syndrome however it might be a good idea to have a surgeon take a look to see what he thinks. The patient was using meth before coming into the hospital. I wonder if he might have had a contaminant. Another possibility would be some sort of embolic phenomenon. Will check an echo. I doubt if he has polymyositis. Jasmine-1 and TESHA pending (3) Elevated LFTs: Code(s): R94.5 - Abnormal results of liver function studies Status: Acute Assessment and Plan: Patient has high liver enzymes. This may be from the rhabdomyolysis but could be from the liver as well. Labs are improving along with the CK. Hepatitis B are negative. Hepatitis-C is positive and viral count is pending. (4) Altered mental status: Code(s): R41.82 - Altered mental status, unspecified Status: Acute Assessment and Plan: This has improved as far as alert as goes however his friend says that he still forgets things. Nursing says he does remember either. Will check MRI brain (5) Drug abuse: Code(s): F19.10 - Other psychoactive substance abuse, uncomplicated Status: Acute Assessment and Plan: He uses meth. He denies use of heroin. (6) DVT (deep venous thrombosis): Code(s): I82.409 - Acute embolism and thrombosis of unspecified deep veins of unspecified lower extremity Status: Acute Assessment and Plan: Long discussion with the patient and the friend. Also long discussions with Dr. triplett. More than 25 minutes spent in discussion with them apart from clinical activity. Subjective Date/time seen: 07/11/19 14:53 Interval history: Patient is more awake today. He is very uncomfortable regards to both legs. Both feet burn. Left leg hurts more than the right leg but the right leg is swollen. Friend is in the room. Review of Systems Cardiovascular: Cardiovascular: Reports no additional cardiovascular complaints Respiratory: Respiratory: Reports no additional respiratory complaints Gastrointestinal: Gastrointestinal: Reports no additional gastrointestinal complaints Genitourinary: Genitourinary: Reports no additional male genitourinary complaints Exam Narrative: Exam Narrative: Well developed well-nourished in no acute distress Lungs clear Heart regular without rub Abdomen bow
--- NOTE | 2019-07-11 15:00 | ECHO_ITS ---
Patient Info Name: Sabas Zazueta Age: 33 years : 1985 Gender: Male Ht: 72 in Wt: 251 lbs BSA: 2.44 m2 HR: 85 bpm BP: 148 / 69 mmHg Heart Rhythm: Sinus Rhythm Technical Quality: Good Exam Date: 07/11/2019 3:46 PM Exam Location: [facility] Pul[facility] Patient Status: Inpatient Admit Date: 07/09/2019 Staff Ordering Physician: Ta Lyons MD Heel Emery Buffer: Baldemar Ruano RDCS Attending Provider: Carlene Ferguson DO Referring Physician: Eloy HEATH; Exam Type: CA echo doppler color flow Study Info Indications - Concern for embolic source Complete two-dimensional, color flow and Doppler transthoracic echocardiogram is performed. History/Risk Factors DVT and rhabdmylosis; poly-substance abuse. Summary 1. Left ventricular chamber dimension is normal. 2. Left ventricular systolic function is normal, estimated at 55-60%. 3. The left ventricular diastolic function is normal. 4. E/e' 5 is not elevated. 5. Dilated inferior vena cava with >50% collapse upon inspiration consistent with normal right atrial pressure, 10 mmHg. Left Ventricle E/e' 5 is not elevated. Left ventricular chamber dimension is normal. Left ventricular systolic function is normal, estimated at 55-60%. The left ventricular diastolic function is normal. Right Ventricle Right ventricular chamber dimension is normal. Right ventricular systolic function is normal. Left Atria Left atrial chamber dimension is normal. Right Atria Right atrial chamber dimension is normal. Aortic Valve The aortic valve is trileaflet. There is no aortic valve stenosis. There is no aortic valve regurgitation. Pulmonic Valve There is no pulmonic regurgitation. Mitral Valve There is no mitral valve stenosis. There is no mitral valve regurgitation. Tricuspid Valve There is no tricuspid valve regurgitation. Pericardium/Pleural There is no pericardial effusion. Inferior Vena Cava Dilated inferior vena cava with >50% collapse upon inspiration consistent with normal right atrial pressure, 10 mmHg. Aorta The aortic root size at the sinus of Valsalva is normal. Left Ventricular Outflow Tract Name Value Normal LVOT 2D LVOT Diameter 2.0 cm LVOT Doppler LVOT Peak Gradient 5 mmHg LVOT Mean Gradient 3 mmHg LVOT VTI 17 cm LVOT VTI/AV VTI Ratio 0.7 LVOT Stroke Volume 52 ml LVOT CO 4.3 l/min LVOT CI 1.8 l/min/m2 Mitral Valve Name Value Normal MV Doppler MV Decel [place] 390 cm/s2 MV PHT 53 ms MV Area (PHT) 4.1 cm2 4.0-5.0 MV Diastolic Function ------
--- NOTE | 2019-07-11 15:20 | PM.IMPN ---
Progress Note: A&P Assessment and Plan (1) Acute renal failure: Qualifiers: Acute renal failure type: unspecified Qualified Code(s): N17.9 - Acute kidney failure, unspecified Code(s): N17.9 - Acute kidney failure, unspecified Status: Acute Assessment and Plan: Probable all acute renal failure and renal sonogram shows normal-sized kidneys which would validate that also. Continue hydration and follow CPK, creatinine 7.5 today (2) Rhabdomyolysis: Qualifiers: Rhabdomyolysis type: non-traumatic Qualified Code(s): M62.82 - Rhabdomyolysis Code(s): M62.82 - Rhabdomyolysis Status: Acute Assessment and Plan: Probable secondary to drug abuse. Hydrating aggressively and CK and creatinine are improved. Watch right leg for any signs of compartment syndrome but is soft and CK is falling, 5799 today (3) Swelling of right lower extremity: Code(s): M79.89 - Other specified soft tissue disorders Status: Acute Assessment and Plan: Probably secondary to the rhabdo and venous Doppler shows small DVT in left leg not right Still neurovascular intact and leg is soft so do not expect compartment syndrome (4) Drug abuse: Code(s): F19.10 - Other psychoactive substance abuse, uncomplicated Status: Acute Assessment and Plan: no signs of withdrawal Hear no murmurs but with his strange presentation will obtain blood cultures and echo (5) Elevated LFTs: Code(s): R94.5 - Abnormal results of liver function studies Status: Acute Assessment and Plan: AST markedly elevated probably secondary to rhabdo but ALT also increased and withdrawing history will check hepatitis profile and possible ultrasound right upper quadrant later Hep C is positive and hep C for are and pending. Patient relates that he is familiar with this diagnosis but has not sought any treatment for. AST and ALT continue to fall (6) DVT prophylaxis: Code(s): Z29.9 - Encounter for prophylactic measures, unspecified Status: Acute Assessment and Plan: Full-dose heparin now with DVT (7) Altered mental status: Code(s): R41.82 - Altered mental status, unspecified Status: Acute Assessment and Plan: Probable drug-induced or metabolic encephalopathy from the uremia. CT negative and will go ahead with MR of the brain. Concerned there may have been some anoxic encephalopathy involved with his continued symptomatology (8) DVT (deep venous thrombosis): Code(s): I82.409 - Acute embolism and thrombosis of unspecified deep veins of unspecified lower extremity Status: Acute Assessment and Plan: Full-dose heparin with his renal failure. Transition to oral NOAC when creatinine falls further Subjective Date/time seen: 07/11/19 15:20 Interval history: Date of visit 07/11/2019. 33-year-old white male drug abuser admitted with acute renal failure, rhabdomyolysis, and metabolic encephalopathy. less agitated today but still loss of short term memory still leg pain when up and says feet burn Exam Narrative: Exam Narrative: Blood pressure 146/70 pulse is 78 satting 95% on room air afebrile Pupils equal and reactive to light sclera anicteric Mouth normal mucosa Neck supple no adenopathy thyromegaly or carotid bruits Lungs clear no wheezing or consolidation CV regular rate rhythm no murmurs or gallops Abdomen is soft nontender no masses or organomegaly Extremities without a edema on the left, right leg is noticeably more prominent than the left up into the thigh and is warm, good movement and dp, pt intact 1-2+ There are abrasions on the dorsum of his toes on both feet Integument multiple tattoos on his extremities Neck Neuro alert cooperative no focal deficits, no appreciable weakness in extremities, oriented to person and place but not date or time still Objective Data Vital Signs Vital Signs: Vital Signs - 24 hr 07/11/19 05:38
[2019-07-11 16:20] LABS: Creatinine Urine 58.4 mg/dL; Total Protein Urine Random 29 mg/dL
[2019-07-11 16:22] LABS: Sodium Urine Random 41 meq/L
[2019-07-11 18:32] LABS: Ammonia < 9 umol/L (9-30)
[2019-07-11 18:39] LABS: Complement C3 94 mg/dL (88-165)
[2019-07-11 19:06] LABS: Erythrocyte Sedimentation Rate 24 mm/hr (0-20)
[2019-07-11 22:00] VITALS: BP 138/63; PULSE 94; RESP 18; TEMP 37.1; O2SAT 99
[2019-07-11] MEDS: HEPARIN SOD/D5W 100 UNITS/ML 25,000 UNITS/250 ML BAG 20 UNITS IV CONT (23:51)
[2019-07-12 01:57] LABS: Partial Thromboplastin Time 127.2 SECONDS (22.3-36.8)
[2019-07-12] MEDS: SODIUM CHLORIDE 0.9% IV 1,000 ML 100 ML IV CONT ×2 (02:04→12:31)
[2019-07-12 06:00] VITALS: BP 133/69; PULSE 77; RESP 18; TEMP 36.9; O2SAT 99
[2019-07-12 06:13] LABS: Hematocrit 40.1 % (42.0-52.0); Hemoglobin 13.9 g/dL (14.0-18.0); Mean Corpuscular HGB Conc 34.7 g/dl (32-36); Mean Corpuscular Hemoglobin 30.4 pg (26-34); Mean Corpuscular Volume 87.7 fl (80-100); Mean Platelet Volume 10.6 fl (7.4-10.4); Platelet Count Result 184 k/mm3 (150-375); Red Blood Count 4.57 M/mm3 (4.6-6.20); Red Cell Distribution Width 13.7 % (11.5-14.5); White Blood Count 12.8 K/mm3 (4.5-10.0)
[2019-07-12 06:15] LABS: Basophils Percent Auto 0.3 % (0.2-1.2); Eosinophils Absolute Auto 0.2 K/mm3 (0-0.3); Eosinophils Percent Auto 1.8 % (0-4.4); Hematocrit 38.7 % (42.0-52.0); Hemoglobin 13.3 g/dL (14.0-18.0); Immature Granulocyte Absolute 0.18 K/mm3 (0.00-0.031); Immature Granulocyte Percent A 1.5 % (0-0.5); Lymphocytes Absolute Auto 1.78 K/mm3 (0.9-3.2); Lymphocytes Percent Auto 14.4 % (18.3-44.2); Mean Corpuscular HGB Conc 34.4 g/dl (32-36); Mean Corpuscular Hemoglobin 30.2 pg (26-34); Mean Platelet Volume 9.6 fl (7.4-10.4); Monocytes Absolute Auto 1.6 K/mm3 (0.1-0.6); Monocytes Percent Auto 12.6 % (2.6-8.5); Neutrophils Absolute Auto 8.6 K/mm3 (1.3-6.7); Neutrophils Percent Auto 69.4 % (45.5-73.1); Platelet Count Result 197 k/mm3 (150-375); Red Cell Distribution Width 13.6 % (11.5-14.5); White Blood Count 12.3 K/mm3 (4.5-10.0)
[2019-07-12 06:43] LABS: Alanine Aminotransferase 171 U/L (4-50); Albumin Level 2.5 g/dL (3.5-5.1); Alkaline Phosphatase 39 U/L (38-126); Aspartate Amino Transferase 178 U/L (17-59); Bilirubin,Total 1.1 mg/dL (0.2-1.3); Blood Urea Nitrogen 105 mg/dL (9-20); Calcium 7.1 mg/dL (8.4-10.2); Carbon Dioxide > 40 mmol/L (22-30); Chloride 83 mmol/L (98-107); Creatine Kinase 3034 U/L (55-170); Estimated CRCL calculation 23 ml/min; Estimated Glomerular Filt Rate 12; Glucose 94 mg/dL (75-110); Phosphorus 5.6 mg/dL (2.5-4.5); Potassium 3.1 mmol/L (3.4-5.0); Sodium 132 mmol/L (137-145)
[2019-07-12 08:46] LABS: Partial Thromboplastin Time 72.9 SECONDS (22.3-36.8)
[2019-07-12] MEDS: POTASSIUM CHLORIDE 20 MEQ TABLET 40 MEQ PO (09:45)
--- NOTE | 2019-07-12 10:56 | P.PNNP_ITS ---
Progress Note: A&P Assessment and Plan (1) Acute renal failure: Qualifiers: Acute renal failure type: unspecified Qualified Code(s): N17.9 - Acute kidney failure, unspecified Code(s): N17.9 - Acute kidney failure, unspecified Status: Acute Assessment and Plan: * presumably due to rhabdomyolysis and volume dehydration/volume depletion - renal ultrasound is normal * creatinine seems to be slowly improving * further testing still pending * follow repeat labs and UOP (2) Rhabdomyolysis: Qualifiers: Rhabdomyolysis type: non-traumatic Qualified Code(s): M62.82 - Rhabd omyolysis Code(s): M62.82 - Rhabdomyolysis Status: Acute Assessment and Plan: * etiology not clear - possibly from a contaminant of the heroin or meth? - viruses could do this as well - emboli phenomenon? * continue supportive therapy (3) Elevated LFTs: Code(s): R94.5 - Abnormal results of liver function studies Status: Acute Assessment and Plan: * possibly from the rhabdomyolysis but could be from the liver as well * labs are improving along with the CPK * Hepatitis B serolgies are negative. HepatitisC is positive and viral count is pending * follow trend (4) Altered mental status: Code(s): R41.82 - Altered mental status, unspecified Status: Acute Assessment and Plan: * related to drug use versus acute illness? * follow mentation (5) DVT (deep venous thrombosis): Code(s): I82.409 - Acute embolism and thrombosis of unspecified deep veins of unspecified lower extremity Status: Acute Assessment and Plan: * on anticoagulation Will continue to follow. Subjective Date/time seen: 07/12/19 10:56 Chart reviewed -- sleeping comfortably at the time of my visit; relates ongoing memory issues as well as lower extremity pain/discomfort; no apparent distress voiced. Exam Narrative: Exam Narrative: General: WD/WN male in NAD Heart: normal S1 and S2; no rub Lungs: clear to auscultation Abdomen: soft, nontender, nondistended, positive bowel sounds Extremities: no cyanosis or clubbing; no edema Skin: warm and dry Objective Data Vital Signs Vital Signs: Vital Signs Temp Pulse Resp BP Pulse Ox 07/12/19 06:00 36.9 C 77 18 133/69 99 07/11/19 22:00 37.1 C 94 18 138/63 99 Intake/Output Intake/Output: Intake & Output 07/09/19 07/10/19 07/11/19 07/12/19 23:59 23:59 23:59 23:59 Intake Total 3660 5260 4530 2400 Output Total 1950 4100 3450 2100 Balance 1710 1160 1080 300 Meds/Results Medications: Active Medications Generic Name Dose Route Start Last Admin Trade Name Freq PRN Reason Stop Dose Admin Heparin Sodium (Porcine) 7,500 units 07/10/19 12:19 07/11/19 19:13 Heparin Sodium IV PUSH 7,500 units PRN PRN Administration aPTT less than 55 seconds Heparin Sodium (Porcine) 4,000 units 07/10/19 12:19 Heparin Sodium IV PUSH PRN PRN aPTT 55 - 70 seconds Heparin Sodium/Dextrose 25,000 units in 250 mls @ 18 mls/hr 07/10/19 12:20 07/12/19 02:03 Heparin Sodium/D5w 100 Units/Ml IV CONT 18 ml/hr .[id number] HILARIA 18 mls/hr Titration Protocol
--- NOTE | 2019-07-12 10:56 | PM.PNNEP ---
Progress Note: A&P Assessment and Plan (1) Acute renal failure: Qualifiers: Acute renal failure type: unspecified Qualified Code(s): N17.9 - Acute kidney failure, unspecified Code(s): N17.9 - Acute kidney failure, unspecified Status: Acute Assessment and Plan: presumably due to rhabdomyolysis and volume dehydration/volume depletion - renal ultrasound is normal creatinine seems to be slowly improving further testing still pending follow repeat labs and UOP (2) Rhabdomyolysis: Qualifiers: Rhabdomyolysis type: non-traumatic Qualified Code(s): M62.82 - Rhabdomyolysis Code(s): M62.82 - Rhabdomyolysis Status: Acute Assessment and Plan: etiology not clear - possibly from a contaminant of the heroin or meth? - viruses could do this as well - emboli phenomenon? continue supportive therapy (3) Elevated LFTs: Code(s): R94.5 - Abnormal results of liver function studies Status: Acute Assessment and Plan: possibly from the rhabdomyolysis but could be from the liver as well labs are improving along with the CPK Hepatitis B serolgies are negative. HepatitisC is positive and viral count is pending follow trend (4) Altered mental status: Code(s): R41.82 - Altered mental status, unspecified Status: Acute Assessment and Plan: related to drug use versus acute illness? follow mentation (5) DVT (deep venous thrombosis): Code(s): I82.409 - Acute embolism and thrombosis of unspecified deep veins of unspecified lower extremity Status: Acute Assessment and Plan: on anticoagulation Will continue to follow. Subjective Date/time seen: 07/12/19 10:56 Chart reviewed -- sleeping comfortably at the time of my visit; relates ongoing memory issues as well as lower extremity pain/discomfort; no apparent distress voiced. Exam Narrative: Exam Narrative: General: WD/WN male in NAD Heart: normal S1 and S2; no rub Lungs: clear to auscultation Abdomen: soft, nontender, nondistended, positive bowel sounds Extremities: no cyanosis or clubbing; no edema Skin: warm and dry Objective Data Vital Signs Vital Signs: Vital Signs Temp Pulse Resp BP Pulse Ox 07/12/19 06:00 36.9 C 77 18 133/69 99 07/11/19 22:00 37.1 C 94 18 138/63 99 Intake/Output Intake/Output: Intake & Output 07/09/19 07/10/19 07/11/19 07/12/19 23:59 23:59 23:59 23:59 Intake Total 3660 5260 4530 2400 Output Total 1950 4100 3450 2100 Balance 1710 1160 1080 300 Meds/Results Medications: Active Medications Generic Name Dose Route Start Last Admin Trade Name Freq PRN Reason Stop Dose Admin Heparin Sodium (Porcine) 7,500 units 07/10/19 12:19 07/11/19 19:13 Heparin Sodium IV PUSH 7,500 units PRN PRN Administration aPTT less than 55 seconds Heparin Sodium (Porcine) 4,000 units 07/10/19 12:19 Heparin Sodium IV PUSH PRN PRN aPTT 55 - 70 seconds Heparin Sodium/Dextrose 25,000 units in 250 mls @ 18 mls/hr 07/10/19 12:20 07/12/19 02:03 Heparin Sodium/D5w 100 Units/Ml IV CONT 18 ml/hr .[id number] HILARIA 18 mls/hr Titration Protocol 1,800 UNITS/HR Sodium Chloride 1,000 mls @ 100 mls/hr 07/11/19 13:55 07/12/19 02:04 Normal Saline Iv IV CONT 100 mls/hr .Q10H HILARIA Administration Radiology Results: ITS Impressions Head CT 07/09/19 07:18 IMPRESSION: 1. Normal brain. Venous Doppler Study 07/10/19 10:57 IMPRESSION: 1. Deep venous thrombosis in one of the paired left posterior tibial veins at the mid left calf. Findings were discussed with Joceline Rodriguez, the nurse caring for the patient, at 11:00 AM. 2. No deep venous thrombosis in the right lower limb. Renal Ultrasound 07/10/19 10:59 IMPRESSION: 1. Normal kidneys. No hydronephrosis. Brain MRI 07/11/19 17:21 IMPRESSION: 1. Punctate acute right frontal
[2019-07-12] MEDS: HEPARIN SOD/D5W 100 UNITS/ML 25,000 UNITS/250 ML BAG 18 UNITS IV CONT (13:57)
[2019-07-12 14:00] VITALS: BP 144/63; PULSE 73; RESP 20; TEMP 36.8; O2SAT 100
[2019-07-12 14:45] LABS: Kappa\\Lambda Light Chains 1.51 (0.26-1.65); Lambda Light Chain 57.9 mg/L (5.7-26.3)
[2019-07-12 15:17] LABS: Partial Thromboplastin Time 48.5 SECONDS (22.3-36.8)
[2019-07-12] MEDS: HEPARIN SODIUM 5,000 UNITS/ML VIAL 7500 UNITS IV PUSH (16:25)
[2019-07-12 16:34] LABS: Hepatitis C RNA, Quant PCR 776000 IU/mL
--- NOTE | 2019-07-12 17:03 | PM.IMPN ---
Progress Note: A&P Assessment and Plan (1) Acute renal failure: Qualifiers: Acute renal failure type: unspecified Qualified Code(s): N17.9 - Acute kidney failure, unspecified Code(s): N17.9 - Acute kidney failure, unspecified Status: Acute Assessment and Plan: Probable all acute renal failure and renal sonogram shows normal-sized kidneys which would validate that also. Continue hydration and follow CPK, creatinine 5.7today (2) Rhabdomyolysis: Qualifiers: Rhabdomyolysis type: non-traumatic Qualified Code(s): M62.82 - Rhabdomyolysis Code(s): M62.82 - Rhabdomyolysis Status: Acute Assessment and Plan: Probable secondary to drug abuse. Hydrating aggressively and CK and creatinine are improved. Watch right leg for any signs of compartment syndrome but is soft and CK is falling, 3034 today (3) Swelling of right lower extremity: Code(s): M79.89 - Other specified soft tissue disorders Status: Acute Assessment and Plan: Probably secondary to the rhabdo and venous Doppler shows small DVT in left leg not right Still neurovascular intact and leg is soft so no evidence of compartment syndrome (4) Drug abuse: Code(s): F19.10 - Other psychoactive substance abuse, uncomplicated Status: Acute Assessment and Plan: no signs of withdrawal Hear no murmurs but with his strange presentation obtained TT echo which was normal and BC NG so far (5) Elevated LFTs: Code(s): R94.5 - Abnormal results of liver function studies Status: Acute Assessment and Plan: AST markedly elevated probably secondary to rhabdo but ALT also increased . Sonogram right upper quadrant negative, hep C positive and RNA confirmation pending . Patient relates that he is familiar with this diagnosis but has not sought any treatment for. AST and ALT continue to fall (6) DVT prophylaxis: Code(s): Z29.9 - Encounter for prophylactic measures, unspecified Status: Acute Assessment and Plan: Full-dose heparin now with DVT (7) Altered mental status: Code(s): R41.82 - Altered mental status, unspecified Status: Acute Assessment and Plan: Probable drug-induced or metabolic encephalopathy from the uremia. CT negative and M R revealed small punctate infarct in the right frontal lobe Concerned there may have been some anoxic encephalopathy involved with his continued symptomatology will get neuro opinion too. Echo normal and no murmer so PAULETTE would be low yield (8) DVT (deep venous thrombosis): Code(s): I82.409 - Acute embolism and thrombosis of unspecified deep veins of unspecified lower extremity Status: Acute Assessment and Plan: Full-dose heparin with his renal failure. Transition to warfarin now because have discovered that his insurance will not cover a NOAC Subjective Date/time seen: 07/12/19 17:03 Interval history: Date of visit 07/12/2019. 33-year-old white male drug abuser admitted with acute renal failure, rhabdomyolysis, and metabolic encephalopathy. less agitated today but still loss of short term memory still leg pain when up and says feet burn Exam Narrative: Exam Narrative: Blood pressure 142/62 pulse is 72 satting 98% on room air afebrile Pupils equal and reactive to light sclera anicteric Mouth normal mucosa Neck supple no adenopathy thyromegaly or carotid bruits Lungs clear no wheezing or consolidation CV regular rate rhythm no murmurs or gallops Abdomen is soft nontender no masses or organomegaly Extremities without a edema on the left, right leg is noticeably more prominent than the left up into the thigh and is warm, good movement and dp, pt intact 1-2+ and tender to touch either foot but not calfes There are abrasions on the dorsum of his toes on both feet Integument multiple tattoos on his extremities, Neck Neuro alert cooperative no focal deficits, no appreciable weakness in extremities,
[2019-07-12] MEDS: WARFARIN (*PBKC) 7.5 MG TABLET PO (19:05)
[2019-07-12 22:00] VITALS: BP 140/66; PULSE 96; RESP 18; TEMP 36.8; O2SAT 100
[2019-07-12 23:32] LABS: Partial Thromboplastin Time 105.8 SECONDS (22.3-36.8)
[2019-07-13] MEDS: SODIUM CHLORIDE 0.9% IV 1,000 ML 100 ML IV CONT ×2 (00:10→11:00)
[2019-07-13] MEDS: HEPARIN SOD/D5W 100 UNITS/ML 25,000 UNITS/250 ML BAG 22 UNITS IV CONT ×2 (03:18→15:00)
[2019-07-13 05:02] LABS: Basophils Percent Auto 0.2 % (0.2-1.2); Eosinophils Absolute Auto 0.3 K/mm3 (0-0.3); Eosinophils Percent Auto 1.9 % (0-4.4); Hematocrit 36.8 % (42.0-52.0); Hemoglobin 12.7 g/dL (14.0-18.0); Immature Granulocyte Absolute 0.31 K/mm3 (0.00-0.031); Immature Granulocyte Percent A 2.3 % (0-0.5); Lymphocytes Absolute Auto 1.59 K/mm3 (0.9-3.2); Lymphocytes Percent Auto 11.5 % (18.3-44.2); Mean Corpuscular HGB Conc 34.5 g/dl (32-36); Mean Corpuscular Volume 86.8 fl (80-100); Mean Platelet Volume 9.2 fl (7.4-10.4); Monocytes Absolute Auto 1.5 K/mm3 (0.1-0.6); Monocytes Percent Auto 10.6 % (2.6-8.5); Neutrophils Absolute Auto 10.1 K/mm3 (1.3-6.7); Neutrophils Percent Auto 73.5 % (45.5-73.1); Platelet Count Result 180 k/mm3 (150-375); Red Blood Count 4.24 M/mm3 (4.6-6.20); Red Cell Distribution Width 13.7 % (11.5-14.5); White Blood Count 13.8 K/mm3 (4.5-10.0)
[2019-07-13 05:12] LABS: INR 1.2; Prothrombin Time 14.4 Seconds (11.1-14.7)
[2019-07-13 05:14] LABS: Partial Thromboplastin Time 104.6 SECONDS (22.3-36.8)
[2019-07-13 05:24] LABS: Alanine Aminotransferase 128 U/L (4-50); Albumin Level 2.4 g/dL (3.5-5.1); Alkaline Phosphatase 41 U/L (38-126); Aspartate Amino Transferase 114 U/L (17-59); Blood Urea Nitrogen 84 mg/dL (9-20); Calcium 7.5 mg/dL (8.4-10.2); Carbon Dioxide 37 mmol/L (22-30); Chloride 90 mmol/L (98-107); Estimated CRCL calculation 32 ml/min; Estimated Glomerular Filt Rate 17; Glucose 105 mg/dL (75-110); Phosphorus 4.2 mg/dL (2.5-4.5); Potassium 3.5 mmol/L (3.4-5.0); Sodium 132 mmol/L (137-145)
[2019-07-13 05:44] LABS: Creatine Kinase 1255 U/L (55-170)
[2019-07-13 06:00] VITALS: BP 143/67; PULSE 84; RESP 18; TEMP 36.7; O2SAT 100
[2019-07-13 06:09] LABS: Add Urine Microscopic? YES; Appearance Urine Clear (Clear); Bacteria Urine Trace /hpf; Bilirubin Urine Negative (Negative); Blood Urine 2+ (Negative); Color Urine Straw (Yellow); Glucose Urine UA Negative (Negative); Ketones Urine Negative (Negative); Leukocyte Esterase Ur Trace LEU/UL (NEGATIVE); Nitrate Urine Positive (Negative); Protein Urine 1+ mg/dL (Negative); RBC Urine 0-2 /hpf (0-2); Specific Grav Ur 1.012 (1.001-1.035); Urobilinogen Urine Negative mg/dL (<2.0)
[2019-07-13] MEDS: GABAPENTIN 300 MG CAPSULE PO ×3 (09:12→17:30)
[2019-07-13] MEDS: TRAMADOL HCL 50 MG TABLET PO (12:02)
[2019-07-13] MEDS: POTASSIUM CHLORIDE 20 MEQ TABLET PO (12:03)
[2019-07-13 14:00] VITALS: BP 143/66; PULSE 75; RESP 20; TEMP 36.4; O2SAT 100
--- NOTE | 2019-07-13 14:50 | PM.PNNEP ---
Progress Note: A&P Assessment and Plan (1) Acute renal failure: Qualifiers: Acute renal failure type: unspecified Qualified Code(s): N17.9 - Acute kidney failure, unspecified Code(s): N17.9 - Acute kidney failure, unspecified Status: Acute Assessment and Plan: presumably due to rhabdomyolysis and dehydration/volume depletion - renal ultrasound is normal creatinine seems to be slowly improving further serological testing still pending follow repeat labs and UOP (2) Rhabdomyolysis: Qualifiers: Rhabdomyolysis type: non-traumatic Qualified Code(s): M62.82 - Rhabdomyolysis Code(s): M62.82 - Rhabdomyolysis Status: Acute Assessment and Plan: etiology not clear - possibly from a contaminant of the heroin or meth? - viruses could do this as well - emboli phenomenon? continue supportive therapy (3) Elevated LFTs: Code(s): R94.5 - Abnormal results of liver function studies Status: Acute Assessment and Plan: possibly from the rhabdomyolysis but could be from the liver as well labs are improving along with the CPK Hepatitis B serolgies are negative; hepatitis C is positive and viral count is pending follow trend (4) Altered mental status: Code(s): R41.82 - Altered mental status, unspecified Status: Acute Assessment and Plan: related to drug use versus acute illness? brain MRI findings note punctate acute right frontal lobe infarction -- this playing a role? follow mentation (5) DVT (deep venous thrombosis): Code(s): I82.409 - Acute embolism and thrombosis of unspecified deep veins of unspecified lower extremity Status: Acute Assessment and Plan: on anticoagulation Will continue to follow. Subjective Date/time seen: 07/13/19 14:50 Appears to be eating better per nursing; no apparent distress noted at this time; continues to make good UOP; no issues or problems overnight other than frequent cramping pain in his lower extremities. Exam Narrative: Exam Narrative: General: WD/WN male in NAD Heart: normal S1 and S2; no rub Lungs: clear to auscultation Abdomen: soft, nontender, nondistended, positive bowel sounds Extremities: no cyanosis or clubbing; no edema Skin: warm and dry Objective Data Vital Signs Vital Signs: Vital Signs - 24 hr 07/12/19 22:00 07/13/19 06:00 Temperature 36.8 C 36.7 C Pulse Rate 96 84 Respiratory Rate 18 18 Blood Pressure 140/66 143/67 H Pulse Oximetry 100 100 Intake/Output Intake/Output: Intake & Output 07/10/19 07/11/19 07/12/19 07/13/19 23:59 23:59 23:59 23:59 Intake Total 5260 4530 6040 2385 Output Total 4100 3450 3500 2200 Balance 1160 1080 2540 185 Meds/Results Medications: Active Medications Generic Name Dose Route Start Last Admin Trade Name Freq PRN Reason Stop Dose Admin Acetaminophen 500 mg 07/13/19 10:37 Tylenol Tablet PO Q6H PRN Mild Pain (1-3) or Fever Gabapentin 300 mg 07/13/19 09:00 07/13/19 13:20 Neurontin PO 300 mg TID HILARIA Administration Heparin Sodium (Porcine) 7,500 units 07/10/19 12:19 07/12/19 16:25 Heparin Sodium IV PUSH 7,500 units PRN PRN Administration aPTT less than 55 seconds Heparin Sodium (Porcine) 4,000 units 07/10/19 12:19 Heparin Sodium IV PUSH PRN PRN aPTT 55 - 70 seconds Heparin Sodium/Dextrose 25,000 units in 250 mls @ 22 mls/hr 07/10/19 12:20 07/13/19 04:53 Heparin Sodium/D5w 100 Units/Ml IV CONT 22 ml/hr .[id number] HILARIA 22 mls/hr Titration Protocol 1,800 UNITS/HR Sodium Chloride 1,000 mls @ 70 mls/hr 07/11/19 13:55 07/13/19 12:00 Normal Saline Iv IV CONT 70 mls/hr .[id number] HILARIA Infusion Tramadol HCl 50 mg 07/13/19 10:39 07/13/19 12:02 Ultram PO 50 mg Q6H PRN Administration Pain Rated 4-6 Warfarin Sodium 7.5 mg 07/12/19 17:00 07/12/19 19:05 Cou
--- NOTE | 2019-07-13 15:37 | PM.IMPN ---
Progress Note: A&P Assessment and Plan (1) Acute renal failure: Qualifiers: Acute renal failure type: unspecified Qualified Code(s): N17.9 - Acute kidney failure, unspecified Code(s): N17.9 - Acute kidney failure, unspecified Status: Acute Assessment and Plan: Probable all acute renal failure and renal sonogram shows normal-sized kidneys which would validate that also. Continue hydration and follow CPK, creatinine 4.1today (2) Rhabdomyolysis: Qualifiers: Rhabdomyolysis type: non-traumatic Qualified Code(s): M62.82 - Rhabdomyolysis Code(s): M62.82 - Rhabdomyolysis Status: Acute Assessment and Plan: Probable secondary to drug abuse. Hydrating aggressively and CK and creatinine are improved. CK is falling, 1255 today (3) Swelling of right lower extremity: Code(s): M79.89 - Other specified soft tissue disorders Status: Acute Assessment and Plan: Probably secondary to the rhabdo and venous Doppler shows small DVT in left leg not right Still neurovascular intact and leg is soft so no evidence of compartment syndrome (4) Drug abuse: Code(s): F19.10 - Other psychoactive substance abuse, uncomplicated Status: Acute Assessment and Plan: no signs of withdrawal Hear no murmurs but with his strange presentation obtained TT echo which was normal and BC NG (5) Elevated LFTs: Code(s): R94.5 - Abnormal results of liver function studies Status: Acute Assessment and Plan: AST markedly elevated probably secondary to rhabdo but ALT also increased . Sonogram right upper quadrant negative, hep C positive and RNA confirmation + with high viral load . Patient relates that he is familiar with this diagnosis but has not sought any treatment for. AST and ALT continue to fall (6) DVT prophylaxis: Code(s): Z29.9 - Encounter for prophylactic measures, unspecified Status: Acute Assessment and Plan: Full-dose heparin now with DVT (7) Altered mental status: Code(s): R41.82 - Altered mental status, unspecified Status: Acute Assessment and Plan: Probable drug-induced or metabolic encephalopathy from the uremia. CT negative and M R revealed small punctate infarct in the right frontal lobe which probably is not contributing to his mental status changes Concerned there may have been some anoxic encephalopathy involved with his continued symptomatology Neuro has seen. Echo normal and no murmer so PAULETTE would be low yield (8) DVT (deep venous thrombosis): Code(s): I82.409 - Acute embolism and thrombosis of unspecified deep veins of unspecified lower extremity Status: Acute Assessment and Plan: Full-dose heparin with his renal failure. Transition to warfarin now because have discovered that his insurance will not cover a NOAC, day 2. Of warfarin (9) Neuropathic pain: Code(s): M79.2 - Neuralgia and neuritis, unspecified Status: Acute Assessment and Plan: Prescribed gabapentin and tramadol. Patient relates to have taking gabapentin before suspect this is a chronic issue. TSH and B12 levels are normal Subjective Date/time seen: 07/13/19 15:37 Interval history: Date of visit 07/13/2019. 33-year-old white male drug abuser admitted with acute renal failure, rhabdomyolysis, and metabolic encephalopathy. less agitated today but still loss of short term memory still leg pain when up and says feet burn and now radicular pain left leg Exam Narrative: Exam Narrative: Blood pressure 142/62 pulse is 72 satting 94% on room air afebrile Pupils equal and reactive to light sclera anicteric Mouth normal mucosa Neck supple no adenopathy thyromegaly or carotid bruits Lungs clear no wheezing or consolidation CV regular rate rhythm no murmurs or gallops Abdomen is soft nontender no masses or organomegaly Extremities without a edema on the left, right leg is noticeably more prominent
[2019-07-13] MEDS: WARFARIN (*PBKC) 7.5 MG TABLET PO (17:31)
[2019-07-13 18:32] LABS: JO 1 Antibody <1.0
[2019-07-13 20:09] VITALS: PULSE 94; RESP 18; O2SAT 98
[2019-07-13 22:00] VITALS: BP 147/78; PULSE 86; RESP 18; TEMP 36.5; O2SAT 99
[2019-07-14] MEDS: SODIUM CHLORIDE 0.9% IV 1,000 ML 70 ML IV CONT ×2 (00:18→17:26)
[2019-07-14] MEDS: TRAMADOL HCL 50 MG TABLET PO ×4 (00:18→21:23)
[2019-07-14] MEDS: HEPARIN SOD/D5W 100 UNITS/ML 25,000 UNITS/250 ML BAG 22 UNITS IV CONT (02:13)
--- NOTE | 2019-07-14 02:21 | PC.NURSE ---
spoke with Dr. Sarmiento about patient passing blood clot in urine, Dr. Sarmiento said to leave everything as is for now an to shut off heparin and report to him if urine becomes a stream of blood.
[2019-07-14 06:00] VITALS: BP 150/67; PULSE 94; RESP 18; TEMP 36.6; O2SAT 100
--- NOTE | 2019-07-14 06:20 | CONS_ITS ---
DATE OF CONSULTATION: 07/12/2019 HISTORY: This 33 years old right-handed male has been admitted to [facility] through the emergency room with the complaints of generalized weakness along with the swelling of the lower extremities and forgetfulness and with no history of any acute medical problem, but routinely using methamphetamine, benzodiazepine, narcotics, and marijuana. He had been to the ER on , with complaints of pain and swelling of the right lower extremity with a bedside Doppler being normal when he was discharged from the hospital, but recently reportedly as per his girlfriend, he was gradually getting worse with no history of trauma and with no history of urinating as per the girlfriend and also history of fairly good appetite, complained of right lower extremity discomfort, generalized weakness, and intermittent confusion, but with no history of clinical seizure. SOCIAL HISTORY: The patient had a definite history of smoking 40 packs per year. Substance abuse, heroin, amphetamines, and other with no history of taking any home medication. PHYSICAL EXAMINATION: VITAL SIGNS: Initial vital signs are stable except a pulse rate of somewhat rapid, but normal blood pressure, afebrile. GENERAL: Revealed him to be awake, alert, sleeping in the bed, in no obvious acute respiratory distress. HEENT: Normocephalic with no cranial bruit. Ear, nose, throat exam normal. NECK: Supple with no cervical bruit. No thyromegaly. No lymphadenopathy. HEART: Regular. LUNGS: Clear with no crepitation. ABDOMEN: Soft with no organomegaly. EXTREMITIES: With the significant edema of the right lower extremity with no open wound, but multiple abrasions. NEUROLOGICAL: Arousable, awake, alert. Pupils round and regular. [place] of vision full. Extraocular movements full. Face symmetrical. Tongue midline. Motor examination revealed him to have symmetrical strength, sluggish reflexes, downgoing plantar responses. IMPRESSION: History of acute renal failure with evaluation revealing the rhabdomyolysis. The CBC with leukocytosis, APTT 127.2. Electrolytes with hypokalemia, mild hyponatremia, BUN of 105 with creatinine of 5.7, GFR only 12, AST 178, ALT 171, CPK 3034, total protein 5 with the albumin of 2.5. PLAN: Is to continue the medical treatment. We will obtain a routine EEG and further recommendation accordingly. JAMILA Destiny ROSA LACTATION COORDINATOR LACTATION COORDINATOR D I MT: Vasyl
[2019-07-14 06:56] LABS: Hematocrit 28.7 % (42.0-52.0); Mean Corpuscular HGB Conc 34.8 g/dl (32-36); Mean Corpuscular Volume 88.9 fl (80-100); Mean Platelet Volume 9.5 fl (7.4-10.4); Platelet Count Result 191 k/mm3 (150-375); Red Blood Count 3.23 M/mm3 (4.6-6.20); Red Cell Distribution Width 13.6 % (11.5-14.5); White Blood Count 23.5 K/mm3 (4.5-10.0)
[2019-07-14 07:14] LABS: Alanine Aminotransferase 93 U/L (4-50); Albumin Level 2.3 g/dL (3.5-5.1); Alkaline Phosphatase 45 U/L (38-126); Aspartate Amino Transferase 77 U/L (17-59); Bilirubin,Total 0.7 mg/dL (0.2-1.3); Blood Urea Nitrogen 59 mg/dL (9-20); Calcium 7.5 mg/dL (8.4-10.2); Carbon Dioxide 34 mmol/L (22-30); Chloride 87 mmol/L (98-107); Creatine Kinase 960 U/L (55-170); Estimated CRCL calculation 43 ml/min; Estimated Glomerular Filt Rate 24; Glucose 140 mg/dL (75-110); INR 1.5; Phosphorus 4.1 mg/dL (2.5-4.5); Potassium 3.6 mmol/L (3.4-5.0); Prothrombin Time 17.6 Seconds (11.1-14.7); Sodium 127 mmol/L (137-145)
--- NOTE | 2019-07-14 07:18 | PM.PNNEP ---
Progress Note: A&P Assessment and Plan (1) Acute renal failure: Qualifiers: Acute renal failure type: unspecified Qualified Code(s): N17.9 - Acute kidney failure, unspecified Code(s): N17.9 - Acute kidney failure, unspecified Status: Acute Assessment and Plan: presumably due to rhabdomyolysis and dehydration/volume depletion - renal ultrasound is normal creatinine continues to improve. Was 3.1 today. C3 and C4 are normal. Further serological testing still pending follow repeat labs and UOP (2) Rhabdomyolysis: Qualifiers: Rhabdomyolysis type: non-traumatic Qualified Code(s): M62.82 - Rhabdomyolysis Code(s): M62.82 - Rhabdomyolysis Status: Acute Assessment and Plan: etiology not clear - possibly from a contaminant of the heroin or meth? - viruses could do this as well - emboli phenomenon? Down to 960 today. Continue supportive therapy (3) Elevated LFTs: Code(s): R94.5 - Abnormal results of liver function studies Status: Acute Assessment and Plan: possibly from the rhabdomyolysis but could be from the liver as well labs are improving along with the CPK Hepatitis B serolgies are negative; hepatitis C is positive and viral count is positive as well. Consider referral to baggage inspector follow trend (4) Altered mental status: Code(s): R41.82 - Altered mental status, unspecified Status: Acute Assessment and Plan: related to drug use versus acute illness? brain MRI findings note punctate acute right frontal lobe infarction -- this playing a role? Sodium level mildly low probably from the renal failure. I do not think it is low enough to cause all this. Resolution of the renal failure follow mentation (5) DVT (deep venous thrombosis): Code(s): I82.409 - Acute embolism and thrombosis of unspecified deep veins of unspecified lower extremity Status: Acute Assessment and Plan: on anticoagulation Will continue to follow. Subjective Date/time seen: 07/14/19 07:18 Interval history: Patient is about the same. Legs hurt. Mostly left knee today. Review of Systems Cardiovascular: Cardiovascular: Reports no additional cardiovascular complaints Respiratory: Respiratory: Reports no additional respiratory complaints Gastrointestinal: Gastrointestinal: Reports no additional gastrointestinal complaints Genitourinary: Genitourinary: Reports no additional male genitourinary complaints Exam Narrative: Exam Narrative: General: WD/WN male in NAD Heart: normal S1 and S2; no rub Lungs: clear bilaterally Abdomen: soft, nontender, nondistended, positive bowel sounds Extremities: no cyanosis or clubbing; no edema Skin: No rash Objective Data Vital Signs Vital Signs: Vital Signs - 24 hr 07/13/19 14:00 07/13/19 20:09 07/13/19 22:00 Temperature 36.4 C L 36.5 C Pulse Rate 75 94 86 Respiratory Rate 20 18 18 Blood Pressure 143/66 H 147/78 H Pulse Oximetry 100 98 99 07/14/19 06:00 Temperature 36.6 C Pulse Rate 94 Respiratory Rate 18 Blood Pressure 150/67 H Pulse Oximetry 100 Intake/Output Intake/Output: Intake & Output 07/11/19 07/12/19 07/13/19 07/14/19 23:59 23:59 23:59 23:59 Intake Total 4530 6040 3250 2567 Output Total 3450 3500 2900 1500 Balance 1080 2540 350 1067 Meds/Results Medications: Active Medications Generic Name Dose Route Start Last Admin Trade Name Freq PRN Reason Stop Dose Admin Acetaminophen 500 mg 07/13/19 10:37 Tylenol Tablet PO Q6H PRN Mild Pain (1-3) or Fever Gabapentin 300 mg 07/13/19 09:00 07/13/19 17:30 Neurontin PO 300 mg TID HILARIA Administration Heparin Sodium (Porcine) 7,500 units 07/10/19 12:19 07/12/19 16:25 Heparin Sodium IV PUSH 7,500 units PRN PRN Administration aPTT less than 55 seconds Heparin Sodium (Porcine) 4,000 units 07/10/19 12:19
--- NOTE | 2019-07-14 07:22 | PC.NURSE ---
Dr Jonhson notified of extreme pain to left calf, knee, thigh, radiating to buttocks. Also advised of elevated WBC.
[2019-07-14 07:24] LABS: Band Neutrophils Percent 5 % (0-6); Eosinophils Absolute Manual 0.23 K/mm3 (0.02-0.5); Eosinophils Percent Manual 1 % (0-4); Lymphocytes Absolute Manual 1.41 K/mm3 (1.1-4.5); Monocytes Absolute Manual 1.64 K/mm3 (0.1-0.90); Monocytes Percent Manual 7 % (3-9); Neutrophils Absolute Manual 20.21 K/mm3 (1.3-6.7); Neutrophils Percent Manual 81 % (46-73); Total Cells Counted 100; Toxic Granulation Present (NORMAL)
[2019-07-14 07:28] LABS: Platelet Estimate Adequate (Adequate)
[2019-07-14 09:19] LABS: Partial Thromboplastin Time 157.3 SECONDS (22.3-36.8)
[2019-07-14] MEDS: GABAPENTIN 300 MG CAPSULE PO ×3 (09:52→17:30)
--- NOTE | 2019-07-14 11:27 | PCOTNOTE ---
Pt. attempted to be seen for skilled OT, however, patient sleeping soundly at this time and therapist unable to wake up patient. Will re-attempt to see patient this date if time permits.
--- NOTE | 2019-07-14 13:15 | PCOTNOTE ---
Attempted for second time this date to see patient for skilled OT. However, upon entering room, patient sleeping. Therapist attempted to wake up patient in order to participate in therapy, however, patient stated, Please, just let me rest. Therapist attempted to educate patient on importance of participating in therapy, however patient did not respond and appeared to be sleeping again. Patient not seen this date for OT.
[2019-07-14 14:00] VITALS: BP 140/75; PULSE 111; RESP 18; TEMP 36.2; O2SAT 93
--- NOTE | 2019-07-14 15:32 | PM.IMPN ---
Progress Note: A&P Assessment and Plan (1) Acute renal failure: Qualifiers: Acute renal failure type: unspecified Qualified Code(s): N17.9 - Acute kidney failure, unspecified Code(s): N17.9 - Acute kidney failure, unspecified Status: Acute Assessment and Plan: Probable all acute renal failure and renal sonogram shows normal-sized kidneys which would validate that also. Continue hydration and follow CPK, creatinine 3.1today (2) Rhabdomyolysis: Qualifiers: Rhabdomyolysis type: non-traumatic Qualified Code(s): M62.82 - Rhabdomyolysis Code(s): M62.82 - Rhabdomyolysis Status: Acute Assessment and Plan: Probable secondary to drug abuse. Hydrating aggressively and CK and creatinine are improved. CK is falling, [address] pelvis Revealed rhabdo and hematomas.. (3) Swelling of right lower extremity: Code(s): M79.89 - Other specified soft tissue disorders Status: Acute Assessment and Plan: Probably secondary to the rhabdo as evidence by CT scan today and venous Doppler shows small DVT in left leg not right Still neurovascular intact and leg is soft so no evidence of compartment syndrome (4) Drug abuse: Code(s): F19.10 - Other psychoactive substance abuse, uncomplicated Status: Acute Assessment and Plan: no signs of withdrawal Hear no murmurs but with his strange presentation obtained TT echo which was normal and BC NG (5) Elevated LFTs: Code(s): R94.5 - Abnormal results of liver function studies Status: Acute Assessment and Plan: AST markedly elevated probably secondary to rhabdo but ALT also increased . Sonogram right upper quadrant negative, hep C positive and RNA confirmation + with high viral load . Patient relates that he is familiar with this diagnosis but has not sought any treatment for. AST and ALT continue to fall (6) DVT prophylaxis: Code(s): Z29.9 - Encounter for prophylactic measures, unspecified Status: Acute Assessment and Plan: On warfarin now and will DC heparin muscle hematomas (7) Altered mental status: Code(s): R41.82 - Altered mental status, unspecified Status: Acute Assessment and Plan: Probable drug-induced or metabolic encephalopathy from the uremia. CT negative and M R revealed small punctate infarct in the right frontal lobe which probably is not contributing to his mental status changes Concerned there may have been some anoxic encephalopathy involved with his continued symptomatology Neuro has seen. Echo normal and no murmer so PAULETTE would be low yield EEG ordered (8) DVT (deep venous thrombosis): Code(s): I82.409 - Acute embolism and thrombosis of unspecified deep veins of unspecified lower extremity Status: Acute Assessment and Plan: Full-dose heparin with his renal failure initially. Transitioning to warfarin now because have discovered that his insurance will not cover a NOAC, day 3. Of warfarin INR 1.5. With the hematoma so will stop the heparin drip but continue the warfarin at a lower dose.. Try to for seen with INR is close to 2.0 as possible If continued pain or worsening of hematomas with falling hemoglobin may have to stop anticoagulation altogether. If that is the case would have to decide about IVC filter though the thrombus was very small and distal and would probably repeat venous Dopplers before proceeding with such (9) Neuropathic pain: Code(s): M79.2 - Neuralgia and neuritis, unspecified Status: Acute Assessment and Plan: Prescribed gabapentin and tramadol. Patient relates to have taking gabapentin before suspect this is a chronic issue. TSH and B12 levels are normal Subjective Date/time seen: 07/14/19 15:32 Interval history: Date of visit 07/14/2019. 33-year-old white male drug abuser admitted with acute renal failure, rhabdomyolysis, and metabolic encephalopathy. less agitated today but
--- NOTE | 2019-07-14 15:48 | PCPTNOTE ---
Patient refused PT treatment this session due to c/o fatigue.
[2019-07-14] MEDS: WARFARIN (*PBKC) 5 MG TABLET PO (17:30)
[2019-07-14 20:35] VITALS: PULSE 114; RESP 16; O2SAT 98
[2019-07-14 22:00] VITALS: BP 138/71; PULSE 108; RESP 16; TEMP 37.2; O2SAT 100
[2019-07-15] MEDS: TRAMADOL HCL 50 MG TABLET PO (03:32)
[2019-07-15] MEDS: SODIUM CHLORIDE 0.9% IV 1,000 ML 70 ML IV CONT ×2 (05:52→20:22)
[2019-07-15 06:00] VITALS: BP 143/64; PULSE 110; RESP 20; TEMP 37; O2SAT 100
[2019-07-15 06:59] LABS: Hemoglobin 7.1 g/dL (14.0-18.0); Mean Corpuscular HGB Conc 34.6 g/dl (32-36); Mean Corpuscular Hemoglobin 30.9 pg (26-34); Mean Corpuscular Volume 89.1 fl (80-100); Mean Platelet Volume 9.4 fl (7.4-10.4); Platelet Count Result 190 k/mm3 (150-375); Red Cell Distribution Width 14.2 % (11.5-14.5); White Blood Count 26.6 K/mm3 (4.5-10.0)
[2019-07-15 07:05] LABS: Hematocrit 20.5 % (42.0-52.0)
[2019-07-15 07:07] LABS: Alanine Aminotransferase 78 U/L (4-50); Albumin Level 2.3 g/dL (3.5-5.1); Alkaline Phosphatase 36 U/L (38-126); Aspartate Amino Transferase 103 U/L (17-59); Bilirubin,Total 0.7 mg/dL (0.2-1.3); Creatine Kinase 1501 U/L (55-170); Magnesium 1.4 mg/dL (1.6-2.3)
[2019-07-15 07:10] LABS: Albumin Level 2.3 g/dL (3.5-5.1); Blood Urea Nitrogen 54 mg/dL (9-20); Calcium 7.6 mg/dL (8.4-10.2); Carbon Dioxide 31 mmol/L (22-30); Chloride 90 mmol/L (98-107); Estimated CRCL calculation 53 ml/min; Estimated Glomerular Filt Rate 30; Glucose 131 mg/dL (75-110); Phosphorus 4.8 mg/dL (2.5-4.5); Potassium 4.4 mmol/L (3.4-5.0); Sodium 128 mmol/L (137-145)
[2019-07-15 07:58] LABS: Prothrombin Time 30.6 Seconds (11.1-14.7)
[2019-07-15 08:06] LABS: Platelet Estimate Adequate (Adequate)
[2019-07-15 08:09] LABS: Lymphocytes Absolute Manual 2.66 K/mm3 (1.1-4.5); Monocytes Absolute Manual 2.92 K/mm3 (0.1-0.90); Monocytes Percent Manual 11 % (3-9); Neutrophils Percent Manual 79 % (46-73); Total Cells Counted 100
[2019-07-15 08:10] LABS: Hypochromasia 3+ (NORMAL); Toxic Granulation Present (NORMAL)
[2019-07-15] MEDS: GABAPENTIN 300 MG CAPSULE PO (09:34)
--- NOTE | 2019-07-15 10:45 | PM.PNNEP ---
Progress Note: A&P Assessment and Plan (1) Acute renal failure: Qualifiers: Acute renal failure type: unspecified Qualified Code(s): N17.9 - Acute kidney failure, unspecified Code(s): N17.9 - Acute kidney failure, unspecified Status: Acute Assessment and Plan: presumably due to rhabdomyolysis and dehydration/volume depletion - renal ultrasound is normal creatinine continues to improve. Serology is still pending (2) Rhabdomyolysis: Qualifiers: Rhabdomyolysis type: non-traumatic Qualified Code(s): M62.82 - Rhabdomyolysis Code(s): M62.82 - Rhabdomyolysis Status: Acute Assessment and Plan: etiology not clear - possibly from a contaminant of the heroin or meth? - viruses could do this as well - emboli phenomenon? CK abby a little bit today. Repeat this tomorrow Continue supportive therapy Jasmine-1 is negtive. His spine MRI showed some sort of a mass in his thigh. However the CT scan only showed irregular consistency to the muscles due to the rhabdo. It is hard to sort all of this out. (3) Elevated LFTs: Code(s): R94.5 - Abnormal results of liver function studies Status: Acute Assessment and Plan: possibly from the rhabdomyolysis but could be from the liver as well labs are improving along with the CPK Hepatitis B serolgies are negative; hepatitis C is positive and viral count is positive as well. Consider referral to post adoption coordinator (4) Altered mental status: Code(s): R41.82 - Altered mental status, unspecified Status: Acute Assessment and Plan: related to drug use versus acute illness? brain MRI findings note punctate acute right frontal lobe infarction -- this playing a role? Sodium level mildly low probably from the renal failure. I do not think it is low enough to cause all this. This may improve with resolution of the renal failure Another possibility would be the punctate stroke however strokes of this size do not usually cause hyponatremia. follow mentation (5) DVT (deep venous thrombosis): Code(s): I82.409 - Acute embolism and thrombosis of unspecified deep veins of unspecified lower extremity Status: Acute Assessment and Plan: on anticoagulation Subjective Date/time seen: 07/15/19 10:45 Interval history: Patient is resting in bed. He wakens when I talk with them but is very terse He still has leg pain. He does not elaborate on this. Review of Systems Cardiovascular: Cardiovascular: Reports no additional cardiovascular complaints Respiratory: Respiratory: Reports no additional respiratory complaints Gastrointestinal: Gastrointestinal: Reports no additional gastrointestinal complaints Genitourinary: Genitourinary: Reports no additional male genitourinary complaints Exam Narrative: Exam Narrative: General: WD/WN male in NAD Heart: normal S1 and S2; no rub Lungs: clear bilaterally Abdomen: soft, nontender, nondistended, positive bowel sounds Extremities: no cyanosis or clubbing; no edema Skin: No rash or subcu nodules Objective Data Vital Signs Vital Signs: Vital Signs - 24 hr 07/14/19 14:00 07/14/19 20:35 07/14/19 22:00 Temperature 36.2 C L 37.2 C Pulse Rate 111 H 114 H 108 H Respiratory Rate 18 16 16 Blood Pressure 140/75 138/71 Pulse Oximetry 93 98 100 07/15/19 06:00 Temperature 37.0 C Pulse Rate 110 H Respiratory Rate 20 Blood Pressure 143/64 H Pulse Oximetry 100 Intake/Output Intake/Output: Intake & Output 07/12/19 07/13/19 07/14/19 07/15/19 23:59 23:59 23:59 23:59 Intake Total 6040 3250 3317 2038 Output Total 3500 2900 2000 1200 Balance 2540 350 1317 838 Meds/Results Medications: Active Medications Generic Name Dose Route Start Last Admin Trade Name Freq PRN Reason Stop Dose Admin Acetaminophen 500 mg 07/13/19 10:37 Tylenol Tablet PO Q6H PRN Mild Pain (1-3) or Fev
--- NOTE | 2019-07-15 11:42 | PCPTNOTE ---
attempted PT treatment this morning...S.O. present...pt refused multiple attempts to participate in therapy...both S.O. and therapist were unable to persuade pt to participate...pt did not open eyes ,...'please don't make me get up right now'...S.O. had ordered lunch, pt refused to move to a chair for lunch...will see later as time/schedule permit.
--- NOTE | 2019-07-15 12:05 | PM.IMPN ---
Progress Note: A&P Assessment and Plan (1) DVT (deep venous thrombosis): Qualifiers: Affected thrombotic vein of extremity: tibial Chronicity: acute DVT location: lower extremity Laterality: left Qualified Code(s): I82.442 - Acute embolism and thrombosis of left tibial vein Code(s): I82.409 - Acute embolism and thrombosis of unspecified deep veins of unspecified lower extremity Status: Acute Assessment and Plan: 07/15 INR 3.0, therefore hold warfarin Monitor INR Hematomas clinically stable to improved (2) Acute renal failure: Qualifiers: Acute renal failure type: unspecified Qualified Code(s): N17.9 - Acute kidney failure, unspecified Code(s): N17.9 - Acute kidney failure, unspecified Status: Acute Assessment and Plan: ARF likely due to rhabdomyolysis 07/15 creatinine 2.5 Continue IVF F/u lab (3) Rhabdomyolysis: Qualifiers: Rhabdomyolysis type: non-traumatic Qualified Code(s): M62.82 - Rhabdomyolysis Code(s): M62.82 - Rhabdomyolysis Status: Acute Assessment and Plan: Probable secondary to drug abuse. Hydrating aggressively with CK and creatinine improved Ct pelvis Revealed rhabdo and hematomas.. (4) Drug abuse: Code(s): F19.10 - Other psychoactive substance abuse, uncomplicated Status: Acute Assessment and Plan: meth and xanax (5) Elevated LFTs: Code(s): R94.5 - Abnormal results of liver function studies Status: Acute Assessment and Plan: Lab c/w CHRONIC ACTIVE HEPATITIS C Will require outpatient f/u and treatment (6) Altered mental status: Qualifiers: Altered mental status type: transient alteration of awareness Qualified Code(s): R40.4 - Transient alteration of awareness Code(s): R41.82 - Altered mental status, unspecified Status: Acute Assessment and Plan: Probable drug-induced or metabolic encephalopathy from the uremia. CT negative and M R revealed small punctate infarct in the right frontal lobe which probably is not contributing to his mental status changes Concerned there may have been some anoxic encephalopathy involved with his continued symptomatology Neuro has seen. Echo normal and no murmer so PAULETTE would be low yield EEG ordered (7) Neuropathic pain: Code(s): M79.2 - Neuralgia and neuritis, unspecified Status: Acute Assessment and Plan: Due to increased drowsiness, stop gabapentin and tramadol. TSH and B12 levels are normal Subjective Date/time seen: 07/15/19 12:05 Interval history: Generalized muscle aches. Poor appetite. More tired today. Refused PT today. Last BM yesterday. Review of Systems Review of Systems: All systems reviewed & are unremarkable except as noted in HPI and below Exam Narrative: Exam Narrative: HEENT: EOMI, PERRL, pharyngeal mucosa pink and intact NECK: No JVD, adenopathy, or thyromegaly CHEST: Clear to auscultation. Normal effort. HEART: NL S1/S2, regular, no murmur ABDOMEN: BS+, soft, nontender, no mass, no bruits EXTREMITIES: No cyanosis. Edema with 1+ pitting right leg NEUROLOGIC: CN intact and symmetric to inspection. MUSCULOSKELETAL: Tone and strength symmetric. PSYCH: Alert. Oriented to person, place, and time. Objective Data Vital Signs Vital Signs: Vital Signs - 24 hr 07/14/19 14:00 07/14/19 20:35 07/14/19 22:00 Temperature 97.2 F L 98.9 F Pulse Rate 111 H 114 H 108 H Respiratory Rate 18 16 16 Blood Pressure 140/75 138/71 Pulse Oximetry 93 98 100 07/15/19 06:00 Temperature 98.6 F Pulse Rate 110 H Respiratory Rate 20 Blood Pressure 143/64 H Pulse Oximetry 100 Intake/Output Intake/Output: Intake & Output 07/12/19 07/13/19 07/14/19 07/15/19 23:59 23:59 23:59 23:59 Intake Total 6040 3250 3317 2038 Output Total 3500 2900 2000 1200 Balance 2540 350 1317 838 Meds/Results Medications: Active Medications Generic Name Dose Route Star
[2019-07-15 13:48] LABS: Creatine Kinase 1374 U/L (55-170); Magnesium 1.6 mg/dL (1.6-2.3)
[2019-07-15 14:07] VITALS: BP 132/60; PULSE 108; RESP 16; TEMP 36.9; O2SAT 100
--- NOTE | 2019-07-15 14:32 | PCPTNOTE ---
The PT treatment was unable to be completed this afternoon due to patient refusal. Will continue per Plan of Care frequency and duration.
[2019-07-15 15:58] LABS: RNP Antibodies <1.0
[2019-07-15 21:17] LABS: ANCA Screen Negative (Negative)
[2019-07-15 21:27] LABS: Complement Total CH50 >60 U/mL (31-60)
[2019-07-15 21:35] LABS: Albumin 2.3 g/dL (3.8-4.8); Alpha 1 Globulin 0.5 g/dL (0.2-0.3); Alpha 2 Globulin 0.6 g/dL (0.5-0.9); Beta 1 Globulin 0.3 g/dL (0.4-0.6); Gamma Globulin 0.7 g/dL (0.8-1.7); Protein, Total 4.6 g/dL (6.1-8.1)
[2019-07-15 22:00] VITALS: BP 140/65; PULSE 120; RESP 18; TEMP 36.8; O2SAT 98
[2019-07-15 23:59] LABS: Kappa\\Lambda Light Chains 1.17 (0.26-1.65); Lambda Light Chain 68.8 mg/L (5.7-26.3)
[2019-07-16] VITALS (13 sets, daily range): BP systolic 125–141; BP diastolic 46–63; PULSE 98–114; RESP 16–20; TEMP 36.6–37.9; O2SAT 98–100
[2019-07-16 06:36] LABS: Mean Corpuscular HGB Conc 34.5 g/dl (32-36); Mean Corpuscular Hemoglobin 31.1 pg (26-34); Mean Corpuscular Volume 90.2 fl (80-100); Mean Platelet Volume 9.3 fl (7.4-10.4); Platelet Count Result 137 k/mm3 (150-375); Red Blood Count 1.83 M/mm3 (4.6-6.20); Red Cell Distribution Width 14.4 % (11.5-14.5); White Blood Count 18.4 K/mm3 (4.5-10.0)
[2019-07-16 06:40] LABS: Hemoglobin 5.7 g/dL (14.0-18.0)
[2019-07-16 06:41] LABS: Hematocrit 16.5 % (42.0-52.0)
[2019-07-16 06:43] LABS: INR 1.9; Prothrombin Time 21.5 Seconds (11.1-14.7)
[2019-07-16 07:01] LABS: Albumin Level 2.1 g/dL (3.5-5.1); Blood Urea Nitrogen 50 mg/dL (9-20); Calcium 7.5 mg/dL (8.4-10.2); Carbon Dioxide 31 mmol/L (22-30); Chloride 94 mmol/L (98-107); Estimated CRCL calculation 62 ml/min; Estimated Glomerular Filt Rate 37; Glucose 109 mg/dL (75-110); Phosphorus 3.4 mg/dL (2.5-4.5); Potassium 3.6 mmol/L (3.4-5.0); Sodium 130 mmol/L (137-145)
[2019-07-16 07:04] LABS: Alanine Aminotransferase 63 U/L (4-50); Albumin Level 2.1 g/dL (3.5-5.1); Alkaline Phosphatase 34 U/L (38-126); Aspartate Amino Transferase 79 U/L (17-59); Bilirubin,Total 0.6 mg/dL (0.2-1.3); Blood Urea Nitrogen 54 mg/dL (9-20); Calcium 7.4 mg/dL (8.4-10.2); Carbon Dioxide 30 mmol/L (22-30); Chloride 94 mmol/L (98-107); Estimated CRCL calculation 69 ml/min; Estimated Glomerular Filt Rate 42; Glucose 107 mg/dL (75-110); Potassium 3.6 mmol/L (3.4-5.0); Sodium 130 mmol/L (137-145)
[2019-07-16] MEDS: SODIUM CHLORIDE 0.9% IV 250 ML 30 ML IV CONT (09:10)
--- NOTE | 2019-07-16 10:29 | PCOTNOTE ---
Attempted to see patient this am, however per RN patient is getting blood at this time. RN requested to check back this afternoon.
--- NOTE | 2019-07-16 11:58 | PCPTNOTE ---
Addendum entered by Scarlet Keene, ADMINISTRATIVE SPECIALIST 07/16/19 12:02: PT held for today, OT instructed to check with RN in afternoon. Original Note: The PT treatment was unable to be completed today. Per RN patient receiving blood, hold PT/OT for today. Will continue per Plan of Care frequency and duration.
--- NOTE | 2019-07-16 12:36 | PCNWS ---
Weekly nutritional screen. Patient is tolerating current diet with adequate intake. No weight loss reported. No nutritional needs at this time.
--- NOTE | 2019-07-16 14:32 | PM.IMPN ---
Progress Note: A&P Assessment and Plan (1) DVT (deep venous thrombosis): Qualifiers: DVT location: lower extremity Affected thrombotic vein of extremity: tibial Chronicity: acute Laterality: left Qualified Code(s): I82.442 - Acute embolism and thrombosis of left tibial vein Code(s): I82.409 - Acute embolism and thrombosis of unspecified deep veins of unspecified lower extremity Status: Acute Assessment and Plan: 07/15 INR 3.0, therefore hold warfarin 07/16 1.9 Hematomas clinically worse Anticoagulation problematic Repeat venous doppler to determine whether distal LLE DVT (tibial) is propagating Surgical consultation for possible IVC filter if it is propagating (2) Acute renal failure: Qualifiers: Acute renal failure type: unspecified Qualified Code(s): N17.9 - Acute kidney failure, unspecified Code(s): N17.9 - Acute kidney failure, unspecified Status: Acute Assessment and Plan: ARF likely due to rhabdomyolysis 07/15 creatinine 2.5 07/16 creatinine 1.9 Continue IVF F/u lab (3) Rhabdomyolysis: Qualifiers: Rhabdomyolysis type: non-traumatic Qualified Code(s): M62.82 - Rhabdomyolysis Code(s): M62.82 - Rhabdomyolysis Status: Acute Assessment and Plan: Probable secondary to drug abuse. Hydrating aggressively with CK and creatinine improved Ct pelvis Revealed rhabdo and hematomas (4) Drug abuse: Code(s): F19.10 - Other psychoactive substance abuse, uncomplicated Status: Acute Assessment and Plan: meth and xanax (5) Elevated LFTs: Code(s): R94.5 - Abnormal results of liver function studies Status: Acute Assessment and Plan: Lab c/w CHRONIC ACTIVE HEPATITIS C Will require outpatient f/u and treatment (6) Altered mental status: Qualifiers: Altered mental status type: transient alteration of awareness Qualified Code(s): R40.4 - Transient alteration of awareness Code(s): R41.82 - Altered mental status, unspecified Status: Acute Assessment and Plan: Probable drug-induced or metabolic encephalopathy from the uremia. CT negative and M R revealed small punctate infarct in the right frontal lobe which probably is not contributing to his mental status changes Concerned there may have been some anoxic encephalopathy involved with his continued symptomatology Neuro has seen. Echo normal and no murmer so PAULETTE would be low yield EEG ordered (7) Neuropathic pain: Code(s): M79.2 - Neuralgia and neuritis, unspecified Status: Acute Assessment and Plan: Due to increased drowsiness, stop gabapentin and tramadol. TSH and B12 levels are normal Subjective Date/time seen: 07/16/19 14:32 Interval history: Pain in legs, aching, swollen, increased stiffness. Review of Systems Review of Systems: All systems reviewed & are unremarkable except as noted in HPI and below Exam Narrative: Exam Narrative: HEENT: EOMI, PERRL, pharyngeal mucosa pink and intact NECK: No JVD, adenopathy, or thyromegaly CHEST: Clear to auscultation. Normal effort. HEART: NL S1/S2, regular, no murmur ABDOMEN: BS+, soft, nontender, no mass, no bruits EXTREMITIES: No cyanosis. Edema with 1+ pitting right leg. Mild ecchymosis of right thigh. DP pulses intact bilaterally. NEUROLOGIC: CN intact and symmetric to inspection. Sensation to light touch intact in both feet. MUSCULOSKELETAL: Tone and strength symmetric in upper and lower extremities. PSYCH: Alert. Oriented to person, place, and time. Objective Data Vital Signs Vital Signs: Vital Signs - 24 hr 07/15/19 22:00 07/16/19 06:00 07/16/19 09:10 Temperature 98.3 F 98.6 F 98.2 F Pulse Rate 120 H 112 H 111 H Respiratory Rate 18 20 16 Blood Pressure 140/65 136/57 L 127/53 L Pulse Oximetry 98 98 100 07/16/19 09:25 07/16/19 11:25 07/16/19 11:50 Temperature 98.1 F 98.6 F 98.6 F Pulse Rate 114 H 101 H 101 H Respira
[2019-07-16] MEDS: PHYTONADIONE 5 MG TABLET PO (16:09)
[2019-07-16] MEDS: SODIUM CHLORIDE 0.9% IV 1,000 ML 70 ML IV CONT (16:13)
[2019-07-16 16:33] LABS: Hematocrit 23.1 % (42.0-52.0); Hemoglobin 7.8 g/dL (14.0-18.0)
--- NOTE | 2019-07-16 16:41 | PM.PNNEP ---
Progress Note: A&P Assessment and Plan (1) Acute renal failure: Qualifiers: Acute renal failure type: unspecified Qualified Code(s): N17.9 - Acute kidney failure, unspecified Code(s): N17.9 - Acute kidney failure, unspecified Status: Acute Assessment and Plan: presumably due to rhabdomyolysis and dehydration/volume depletion - renal ultrasound is normal Urine output 1864. Creatinine continues to improve. Current level is 1.9. It seems to be reaching a plateau but will continue to watch. Serum immunofixation negative. Lambda is normal. Urine immuno fix pending TESHA, Anca, complements all negative. (2) Rhabdomyolysis: Qualifiers: Rhabdomyolysis type: non-traumatic Qualified Code(s): M62.82 - Rhabdomyolysis Code(s): M62.82 - Rhabdomyolysis Status: Acute Assessment and Plan: etiology not clear - possibly from a contaminant of the heroin or meth? - viruses could do this as well (but not hepatitis C) - embolic phenomenon? CK abby a little bit yesterday bit later on was down again.. Today's pending. Continue supportive therapy Jasmine-1 and BATTERY STACKER are negative His spine MRI showed some sort of a mass in his thigh. However the CT scan only showed irregular consistency to the muscles due to the rhabdo. It is hard to sort all of this out. (3) Elevated LFTs: Code(s): R94.5 - Abnormal results of liver function studies Status: Acute Assessment and Plan: possibly from the rhabdomyolysis but could be from the liver as well labs are improving along with the CPK Hepatitis B serolgies are negative; hepatitis C is positive and viral count is positive as well. Consider referral to zoning administrator (4) Altered mental status: Qualifiers: Altered mental status type: transient alteration of awareness Qualified Code(s): R40.4 - Transient alteration of awareness Code(s): R41.82 - Altered mental status, unspecified Status: Acute Assessment and Plan: related to drug use versus acute illness? brain MRI findings note punctate acute right frontal lobe infarction -- this playing a role? Sodium level mildly low probably from the renal failure. I do not think it is low enough to cause all this. This may improve with resolution of the renal failure Another possibility would be the punctate stroke however strokes of this size do not usually cause hyponatremia. follow mentation (5) DVT (deep venous thrombosis): Qualifiers: DVT location: lower extremity Affected thrombotic vein of extremity: tibial Chronicity: acute Laterality: left Qualified Code(s): I82.442 - Acute embolism and thrombosis of left tibial vein Code(s): I82.409 - Acute embolism and thrombosis of unspecified deep veins of unspecified lower extremity Status: Acute Assessment and Plan: on anticoagulation (6) Anemia: Code(s): D64.9 - Anemia, unspecified Status: Acute Assessment and Plan: Hemoglobin dropped. He received some blood today Nurses say that he has not had a recent bowel movement. Will check stool guaiac and haptoglobin. Subjective Date/time seen: 07/16/19 16:41 Interval history: Seen this morning. patient is resting in bed. Asking when he is going to be able to go home. He also is still very weak. Asking if he will ever walk again. We discussed his weakness. He had severe rhabdomyolysis. Review of Systems Cardiovascular: Cardiovascular: Reports no additional cardiovascular complaints Respiratory: Respiratory: Reports no additional respiratory complaints Gastrointestinal: Gastrointestinal: Reports no additional gastrointestinal complaints Genitourinary: Genitourinary: Reports no additional male genitourinary complaints Exam Narrative: Exam Narrative: General: WD/WN male in NAD Heart: normal S1 and S2; no rub Lungs: clear to auscultation
[2019-07-17 04:20] LABS: Immunochemical Fecal Occult Bl Negative (N)
[2019-07-17 04:21] LABS: IFOB Positive Control Positive
[2019-07-17 06:00] VITALS: BP 119/58; PULSE 104; RESP 18; TEMP 37; O2SAT 100
[2019-07-17 06:38] LABS: Basophils Absolute Auto 0.1 K/mm3 (0.0-0.1); Basophils Percent Auto 0.3 % (0.2-1.2); Eosinophils Absolute Auto 0.1 K/mm3 (0-0.3); Eosinophils Percent Auto 0.7 % (0-4.4); Hematocrit 22.1 % (42.0-52.0); Hemoglobin 7.6 g/dL (14.0-18.0); Immature Granulocyte Absolute 0.49 K/mm3 (0.00-0.031); Immature Granulocyte Percent A 2.5 % (0-0.5); Lymphocytes Absolute Auto 1.33 K/mm3 (0.9-3.2); Lymphocytes Percent Auto 6.8 % (18.3-44.2); Mean Corpuscular HGB Conc 34.4 g/dl (32-36); Mean Corpuscular Volume 90.2 fl (80-100); Mean Platelet Volume 9.5 fl (7.4-10.4); Monocytes Absolute Auto 1.4 K/mm3 (0.1-0.6); Monocytes Percent Auto 6.9 % (2.6-8.5); Neutrophils Absolute Auto 16.3 K/mm3 (1.3-6.7); Neutrophils Percent Auto 82.8 % (45.5-73.1); Platelet Count Result 155 k/mm3 (150-375); Red Blood Count 2.45 M/mm3 (4.6-6.20); Red Cell Distribution Width 14.3 % (11.5-14.5); White Blood Count 19.6 K/mm3 (4.5-10.0)
[2019-07-17 06:43] LABS: Alanine Aminotransferase 77 U/L (4-50); Albumin Level 2.1 g/dL (3.5-5.1); Alkaline Phosphatase 44 U/L (38-126); Aspartate Amino Transferase 95 U/L (17-59); Bilirubin,Total 0.9 mg/dL (0.2-1.3); Blood Urea Nitrogen 40 mg/dL (9-20); Calcium 7.4 mg/dL (8.4-10.2); Carbon Dioxide 28 mmol/L (22-30); Chloride 96 mmol/L (98-107); Estimated CRCL calculation 81 ml/min; Estimated Glomerular Filt Rate 51; Glucose 120 mg/dL (75-110); Potassium 3.3 mmol/L (3.4-5.0); Sodium 132 mmol/L (137-145)
[2019-07-17 06:54] LABS: Albumin Level 2.1 g/dL (3.5-5.1); Blood Urea Nitrogen 40 mg/dL (9-20); Calcium 7.4 mg/dL (8.4-10.2); Carbon Dioxide 28 mmol/L (22-30); Chloride 96 mmol/L (98-107); Estimated CRCL calculation 81 ml/min; Estimated Glomerular Filt Rate 51; Glucose 122 mg/dL (75-110); Potassium 3.4 mmol/L (3.4-5.0); Sodium 131 mmol/L (137-145)
[2019-07-17 07:14] LABS: INR 1.2
[2019-07-17] MEDS: SODIUM CHLORIDE 0.9% IV 1,000 ML 70 ML IV CONT ×2 (07:28→20:20)
[2019-07-17] MEDS: POTASSIUM CHLORIDE 20 MEQ TABLET 40 MEQ PO ×2 (08:30→13:35)
--- NOTE | 2019-07-17 08:48 | PM.PNNEP ---
Progress Note: A&P Assessment and Plan (1) Acute renal failure: Qualifiers: Acute renal failure type: unspecified Qualified Code(s): N17.9 - Acute kidney failure, unspecified Code(s): N17.9 - Acute kidney failure, unspecified Status: Acute Assessment and Plan: presumably due to rhabdomyolysis and dehydration/volume depletion - renal ultrasound is normal Urine output 3005 Creatinine continues to improve. Current level is 1.3. Serum immunofixation negative. Lambda is normal. Urine immuno fix negative TESHA, Anca, complements all negative. (2) Rhabdomyolysis: Qualifiers: Rhabdomyolysis type: non-traumatic Qualified Code(s): M62.82 - Rhabdomyolysis Code(s): M62.82 - Rhabdomyolysis Status: Acute Assessment and Plan: etiology most likely due to lying on floor for extended period of time. CK ordered for daily but these seem to have stalled as pending . will order another one to be sure they are falling. Continue supportive therapy Jasmine-1 and TELEVISION DIRECTOR are negative (3) Elevated LFTs: Code(s): R94.5 - Abnormal results of liver function studies Status: Acute Assessment and Plan: possibly from the rhabdomyolysis but could be from the liver as well labs are improving along with the CPK Hepatitis B serolgies are negative; hepatitis C is positive and viral count is positive as well. Consider referral to cognos bi administrator (4) Altered mental status: Qualifiers: Altered mental status type: transient alteration of awareness Qualified Code(s): R40.4 - Transient alteration of awareness Code(s): R41.82 - Altered mental status, unspecified Status: Acute Assessment and Plan: seems better. pt is terse (5) DVT (deep venous thrombosis): Qualifiers: DVT location: lower extremity Affected thrombotic vein of extremity: tibial Chronicity: acute Laterality: left Qualified Code(s): I82.442 - Acute embolism and thrombosis of left tibial vein Code(s): I82.409 - Acute embolism and thrombosis of unspecified deep veins of unspecified lower extremity Status: Acute Assessment and Plan: off anticoagulateion (6) Anemia: Code(s): D64.9 - Anemia, unspecified Status: Acute Assessment and Plan: Hemoglobin dropped. He received some blood yesterday stools guaiac negative. complicated hematomae related to rhabdo. was on anticoagulants. repeat venous doppler negative and a/c stopped. hb is stable. Subjective Date/time seen: 07/17/19 08:48 Interval history: patient is resting in bed. legs hurt. eating okay. Review of Systems Cardiovascular: Cardiovascular: Reports no additional cardiovascular complaints Respiratory: Respiratory: Reports no additional respiratory complaints Gastrointestinal: Gastrointestinal: Reports no additional gastrointestinal complaints Genitourinary: Genitourinary: Reports no additional male genitourinary complaints Exam Narrative: Exam Narrative: General: WD/WN male in NAD Heart: normal S1 and S2; no rub Lungs: clear bilaterally Abdomen: BS+ nontender Extremities: no cyanosis or clubbing; tender legs. Skin: No rash or sqnodules Objective Data Vital Signs Vital Signs: Vital Signs - 24 hr 07/16/19 09:10 07/16/19 09:25 07/16/19 11:25 Temperature 36.8 C 36.7 C 37.0 C Pulse Rate 111 H 114 H 101 H Respiratory Rate 16 16 16 Blood Pressure 127/53 L 132/46 L 140/54 L Pulse Oximetry 100 99 99 07/16/19 11:50 07/16/19 12:06 07/16/19 13:06 Temperature 37.0 C 36.8 C 37.4 C Pulse Rate 101 H 98 102 H Respiratory Rate 16 20 20 Blood Pressure 140/54 L 141/63 H 125/56 L Pulse Oximetry 99 99 100 07/16/19 14:06 07/16/19 14:25 07/16/19 14:40 Temperature 37.9 C H 37.9 C H 36.6 C Pulse Rate 109 H 108 H Respiratory Rate 18 18 Blood Pressure 131/58 L 126/56 L Pulse Oximetry 100 99 07/16/19 14:50 07/16/19 1
[2019-07-17] MEDS: ACETAMINOPHEN 500 MG TABLET 1000 MG PO (11:03)
--- NOTE | 2019-07-17 11:51 | PM.IMPN ---
Progress Note: A&P Assessment and Plan (1) Anemia due to acute blood loss: Code(s): D62 - Acute posthemorrhagic anemia Status: Acute Assessment and Plan: 07/16 Hgb 5.7 07/16 2 U PRBC 07/17 Hgb 7.6 No sign/sx of further bleeding (2) DVT (deep venous thrombosis): Qualifiers: DVT location: lower extremity Affected thrombotic vein of extremity: tibial Chronicity: acute Laterality: left Qualified Code(s): I82.442 - Acute embolism and thrombosis of left tibial vein Code(s): I82.409 - Acute embolism and thrombosis of unspecified deep veins of unspecified lower extremity Status: Acute Assessment and Plan: 07/15 INR 3.0, therefore hold warfarin 07/16 1.9 07/17 INR 1.2 Anticoagulation problematic Repeat venous doppler NEGATIVE 07/16 07/16 warfarin stopped and Vitamin K 5mg PO given (3) Acute renal failure: Qualifiers: Acute renal failure type: unspecified Qualified Code(s): N17.9 - Acute kidney failure, unspecified Code(s): N17.9 - Acute kidney failure, unspecified Status: Acute Assessment and Plan: ARF likely due to rhabdomyolysis 07/15 creatinine 2.5 07/16 creatinine 1.9 07/17 creatinine 1.6 Continue IVF F/u lab (4) Rhabdomyolysis: Qualifiers: Rhabdomyolysis type: non-traumatic Qualified Code(s): M62.82 - Rhabdomyolysis Code(s): M62.82 - Rhabdomyolysis Status: Acute Assessment and Plan: Probable secondary to drug abuse. Hydrating aggressively with CK and creatinine improved Ct pelvis Revealed rhabdo and hematomas (5) Drug abuse: Code(s): F19.10 - Other psychoactive substance abuse, uncomplicated Status: Acute Assessment and Plan: meth and xanax (6) Elevated LFTs: Code(s): R94.5 - Abnormal results of liver function studies Status: Acute Assessment and Plan: Lab c/w CHRONIC ACTIVE HEPATITIS C Will require outpatient f/u and treatment (7) Altered mental status: Qualifiers: Altered mental status type: transient alteration of awareness Qualified Code(s): R40.4 - Transient alteration of awareness Code(s): R41.82 - Altered mental status, unspecified Status: Acute Assessment and Plan: Probable drug-induced or metabolic encephalopathy from the uremia. CT negative and M R revealed small punctate infarct in the right frontal lobe which probably is not contributing to his mental status changes Concerned there may have been some anoxic encephalopathy involved with his continued symptomatology Neuro has seen. Echo normal and no murmer so PAULETTE would be low yield (8) Neuropathic pain: Code(s): M79.2 - Neuralgia and neuritis, unspecified Status: Acute Assessment and Plan: Due to increased drowsiness, stop gabapentin and tramadol. TSH and B12 levels are normal Utilize APAP prn. Subjective Date/time seen: 07/17/19 11:51 Interval history: Up to chair. Wants to be able to use bathroom. Not eating because he does not want to use bedpan. Moderate to severe leg pain. Worse with movement. Review of Systems Review of Systems: All systems reviewed & are unremarkable except as noted in HPI and below Exam Narrative: Exam Narrative: HEENT: EOMI, PERRL, pharyngeal mucosa pink and intact NECK: No JVD, adenopathy, or thyromegaly CHEST: Clear to auscultation. Normal effort. HEART: NL S1/S2, regular, no murmur ABDOMEN: BS+, soft, nontender, no mass, no bruits EXTREMITIES: No cyanosis. Edema with 1+ pitting right leg. Mild ecchymosis of right thigh. DP pulses intact bilaterally. NEUROLOGIC: CN intact and symmetric to inspection. Sensation to light touch intact in both feet. MUSCULOSKELETAL: Tone and strength symmetric in upper and lower extremities. PSYCH: Alert. Oriented to person, place, and time. Objective Data Vital Signs Vital Signs: Vital Signs - 24 hr 07/16/19 12:06 07/16/19 13:06 07/16/19 14:06 Temperature 98.3
[2019-07-17 13:49] LABS: Creatine Kinase 438 U/L (55-170)
[2019-07-17 14:56] VITALS: BP 124/57; PULSE 99; RESP 16; TEMP 36.6; O2SAT 100
[2019-07-17 22:00] VITALS: BP 117/52; PULSE 107; RESP 18; TEMP 36.7; O2SAT 100
[2019-07-18] MEDS: ACETAMINOPHEN 500 MG TABLET 1000 MG PO (03:36)
[2019-07-18 06:00] VITALS: BP 144/70; PULSE 95; RESP 18; TEMP 37.1; O2SAT 99
[2019-07-18 06:23] LABS: Hematocrit 23.2 % (42.0-52.0); Hemoglobin 7.7 g/dL (14.0-18.0); Mean Corpuscular HGB Conc 33.2 g/dl (32-36); Mean Corpuscular Hemoglobin 30.6 pg (26-34); Mean Corpuscular Volume 92.1 fl (80-100); Mean Platelet Volume 9.5 fl (7.4-10.4); Platelet Count Result 195 k/mm3 (150-375); Red Blood Count 2.52 M/mm3 (4.6-6.20); Red Cell Distribution Width 14.9 % (11.5-14.5); White Blood Count 16.7 K/mm3 (4.5-10.0)
[2019-07-18 06:31] LABS: Alanine Aminotransferase 105 U/L (4-50); Albumin Level 2.2 g/dL (3.5-5.1); Alkaline Phosphatase 51 U/L (38-126); Aspartate Amino Transferase 106 U/L (17-59); Bilirubin,Total 0.9 mg/dL (0.2-1.3); Blood Urea Nitrogen 30 mg/dL (9-20); Calcium 7.5 mg/dL (8.4-10.2); Carbon Dioxide 27 mmol/L (22-30); Chloride 100 mmol/L (98-107); Estimated CRCL calculation 92 ml/min; Estimated Glomerular Filt Rate 59; Glucose 92 mg/dL (75-110); Potassium 3.9 mmol/L (3.4-5.0); Sodium 133 mmol/L (137-145)
[2019-07-18 06:33] LABS: Albumin Level 2.2 g/dL (3.5-5.1); Blood Urea Nitrogen 30 mg/dL (9-20); Calcium 7.5 mg/dL (8.4-10.2); Carbon Dioxide 28 mmol/L (22-30); Chloride 102 mmol/L (98-107); Estimated CRCL calculation 92 ml/min; Estimated Glomerular Filt Rate 59; Glucose 97 mg/dL (75-110); Phosphorus 3.2 mg/dL (2.5-4.5); Sodium 135 mmol/L (137-145)
[2019-07-18 06:55] LABS: INR 1.4; Prothrombin Time 16.3 Seconds (11.1-14.7)
[2019-07-18 08:00] VITALS: PULSE 95; RESP 18; O2SAT 99
[2019-07-18 11:03] LABS: Histone Antibody <1.0 U (<1.0)
--- NOTE | 2019-07-18 13:39 | PCPTNOTE ---
The PT treatment was unable to be completed today due to patient refusal. Will continue per Plan of Care frequency and duration.
[2019-07-18 14:00] VITALS: BP 128/60; PULSE 110; RESP 18; TEMP 37.5; O2SAT 100
--- NOTE | 2019-07-18 14:31 | P.PNIM_ITS ---
Progress Note: A&P Assessment and Plan (1) Anemia due to acute blood loss: Code(s): D62 - Acute posthemorrhagic anemia Status: Acute Assessment and Plan: * 07/16 Hgb 5.7 * 07/16 2 U PRBC * 07/17 Hgb 7.6 * 07/18 7.7 * No sign/sx of further bleeding (2) DVT (deep venous thrombosis): Qualifiers: DVT location: lower extremity Affected thrombotic vein of extremity: tibial Chronicity: acute Laterality: left Qualified Code(s): I82.442 - Acute embolism and thrombosis of left tibial vein Code(s): I82.409 - Acute embolism and thrombosis of unspecified deep veins of unspecified lower extremity Status: Acute Assessment and Plan: * 07/15 INR 3.0, therefore hold warfarin * 07/16 1.9 * 07/17 INR 1.2 * Anticoagulation problematic * Repeat venous doppler NEGATIVE 07/16 * 07/16 warfarin stopped and Vitamin K 5mg PO given * 07/18 no increased pain or swelling (3) Acute renal failure: Qualifiers: Acute renal failure type: unspecified Qualified Code(s): N17.9 - Acute kidney failure, unspecified Code(s): N17.9 - Acute kidney failure, unspecified Status: Acute Assessment and Plan: * ARF likely due to rhabdomyolysis * 07/15 creatinine 2.5 * 07/16 creatinine 1.9 * 07/17 creatinine 1.6 * 07/18 creatinine 1.4 * Continue IVF * F/u lab (4) Rhabdomyolysis: Qualifiers: Rhabdomyolysis type: non-traumatic Qualified Code(s): M62.82 - Rhabdomyolysis Code(s): M62.82 - Rhabdomyolysis Status: Acute Assessment and Plan: * Probable secondary to drug abuse. * Hydrating aggressively with CK and creatinine improved * Ct pelvis Revealed rhabdo and hematomas * 07/18 resume low dose tramadol for pain (5) Drug abuse: Code(s): F19.10 - Other psychoactive substance abuse, uncomplicated Status: Acute Assessment and Plan: * meth and xanax (6) Elevated LFTs: Code(s): R94.5 - Abnormal results of liver function studies Status: Acute Assessment and Plan: * Lab c/w CHRONIC ACTIVE HEPATITIS C * Will require outpatient f/u and treatment (patient and significant other aware) (7) Altered mental status: Qualifiers: Altered mental status type: transient alteration of awareness Qualified Code(s): R40.4 - Transient alteration of awareness Code(s): R41.82 - Altered mental status, unspecified Status: Acute Assessment and Plan: Probable drug-induced or metabolic encephalopathy from the uremia. CT negative and M R revealed small punctate infarct in the right frontal lobe which probably is not contributing to his mental status changes Concerned there may have been some anoxic encephalopathy involved with his continued symptomatology Neuro has seen. Echo normal and no murmer so PAULETTE would be low yield (8) Neuropathic pain: Code(s): M79.2 - Neuralgia and neuritis, unspecified Status: Acute Assessment and Plan: Due to increased drowsiness, stop gabapentin and tramadol. TSH and B12 levels are normal Utilize APAP prn. Subjective Date/time seen: 07/18/19 14:31 Interval history: Eating better. Moderate to severe leg pain. Worse with movement. Refused PT this PM. Review of Systems Review of Systems: All systems reviewed & are unremarkable except as noted in HPI and below Exam Narrative: Exam Narrative: HEENT: EOMI, PERRL, pharyngeal mucosa pink and intact NECK: No JVD, adenopathy, or thyromegaly CHEST: Clear to auscultation. Normal
--- NOTE | 2019-07-18 14:31 | PM.IMPN ---
Progress Note: A&P Assessment and Plan (1) Anemia due to acute blood loss: Code(s): D62 - Acute posthemorrhagic anemia Status: Acute Assessment and Plan: 07/16 Hgb 5.7 07/16 2 U PRBC 07/17 Hgb 7.6 07/18 7.7 No sign/sx of further bleeding (2) DVT (deep venous thrombosis): Qualifiers: DVT location: lower extremity Affected thrombotic vein of extremity: tibial Chronicity: acute Laterality: left Qualified Code(s): I82.442 - Acute embolism and thrombosis of left tibial vein Code(s): I82.409 - Acute embolism and thrombosis of unspecified deep veins of unspecified lower extremity Status: Acute Assessment and Plan: 07/15 INR 3.0, therefore hold warfarin 07/16 1.9 07/17 INR 1.2 Anticoagulation problematic Repeat venous doppler NEGATIVE 07/16 07/16 warfarin stopped and Vitamin K 5mg PO given 07/18 no increased pain or swelling (3) Acute renal failure: Qualifiers: Acute renal failure type: unspecified Qualified Code(s): N17.9 - Acute kidney failure, unspecified Code(s): N17.9 - Acute kidney failure, unspecified Status: Acute Assessment and Plan: ARF likely due to rhabdomyolysis 07/15 creatinine 2.5 07/16 creatinine 1.9 07/17 creatinine 1.6 07/18 creatinine 1.4 Continue IVF F/u lab (4) Rhabdomyolysis: Qualifiers: Rhabdomyolysis type: non-traumatic Qualified Code(s): M62.82 - Rhabdomyolysis Code(s): M62.82 - Rhabdomyolysis Status: Acute Assessment and Plan: Probable secondary to drug abuse. Hydrating aggressively with CK and creatinine improved Ct pelvis Revealed rhabdo and hematomas 07/18 resume low dose tramadol for pain (5) Drug abuse: Code(s): F19.10 - Other psychoactive substance abuse, uncomplicated Status: Acute Assessment and Plan: meth and xanax (6) Elevated LFTs: Code(s): R94.5 - Abnormal results of liver function studies Status: Acute Assessment and Plan: Lab c/w CHRONIC ACTIVE HEPATITIS C Will require outpatient f/u and treatment (patient and significant other aware) (7) Altered mental status: Qualifiers: Altered mental status type: transient alteration of awareness Qualified Code(s): R40.4 - Transient alteration of awareness Code(s): R41.82 - Altered mental status, unspecified Status: Acute Assessment and Plan: Probable drug-induced or metabolic encephalopathy from the uremia. CT negative and M R revealed small punctate infarct in the right frontal lobe which probably is not contributing to his mental status changes Concerned there may have been some anoxic encephalopathy involved with his continued symptomatology Neuro has seen. Echo normal and no murmer so PAULETTE would be low yield (8) Neuropathic pain: Code(s): M79.2 - Neuralgia and neuritis, unspecified Status: Acute Assessment and Plan: Due to increased drowsiness, stop gabapentin and tramadol. TSH and B12 levels are normal Utilize APAP prn. Subjective Date/time seen: 07/18/19 14:31 Interval history: Eating better. Moderate to severe leg pain. Worse with movement. Refused PT this PM. Review of Systems Review of Systems: All systems reviewed & are unremarkable except as noted in HPI and below Exam Narrative: Exam Narrative: HEENT: EOMI, PERRL, pharyngeal mucosa pink and intact NECK: No JVD, adenopathy, or thyromegaly CHEST: Clear to auscultation. Normal effort. HEART: NL S1/S2, regular, no murmur ABDOMEN: BS+, soft, nontender, no mass, no bruits EXTREMITIES: No cyanosis. Edema with 1+ pitting right leg. Mild ecchymosis of right thigh. DP pulses intact bilaterally. NEUROLOGIC: CN intact and symmetric to inspection. Sensation to light touch intact in both feet. MUSCULOSKELETAL: Tone and strength symmetric in upper and lower extremities. PSYCH: Alert. Oriented to person, place, and time. Objective Data Vital Signs Vital Signs: V
--- NOTE | 2019-07-18 16:45 | PM.PNNEP ---
Progress Note: A&P Assessment and Plan (1) Acute renal failure: Qualifiers: Acute renal failure type: unspecified Qualified Code(s): N17.9 - Acute kidney failure, unspecified Code(s): N17.9 - Acute kidney failure, unspecified Status: Acute Assessment and Plan: due to rhabdomyolysis and dehydration/volume depletion renal ultrasound is normal Urine output 4350 Creatinine continues to improve. Current level is 1.4. Serum immunofixation negative. Lambda is normal. Urine immuno fix negative TESHA, Anca, complements all negative. (2) Rhabdomyolysis: Qualifiers: Rhabdomyolysis type: non-traumatic Qualified Code(s): M62.82 - Rhabdomyolysis Code(s): M62.82 - Rhabdomyolysis Status: Acute Assessment and Plan: etiology most likely due to lying on floor for extended period of time. CK is Lower. Now only 438 Continue supportive therapy Jasmine-1 and COSMETIC SURGEON are negative (3) Elevated LFTs: Code(s): R94.5 - Abnormal results of liver function studies Status: Acute Assessment and Plan: possibly from the rhabdomyolysis but could be from the liver as well labs are improving along with the CPK Hepatitis B serolgies are negative; hepatitis C is positive and viral count is positive as well. Consider referral to service center coordinator (4) Altered mental status: Qualifiers: Altered mental status type: transient alteration of awareness Qualified Code(s): R40.4 - Transient alteration of awareness Code(s): R41.82 - Altered mental status, unspecified Status: Acute Assessment and Plan: seems better. pt is terse (5) DVT (deep venous thrombosis): Qualifiers: DVT location: lower extremity Affected thrombotic vein of extremity: tibial Chronicity: acute Laterality: left Qualified Code(s): I82.442 - Acute embolism and thrombosis of left tibial vein Code(s): I82.409 - Acute embolism and thrombosis of unspecified deep veins of unspecified lower extremity Status: Acute Assessment and Plan: off anticoagulation Repeat venous Dopplers are negative (6) Anemia: Code(s): D64.9 - Anemia, unspecified Status: Acute Assessment and Plan: Hemoglobin dropped. He received some blood yesterday stools guaiac negative. complicated hematomae related to rhabdo. hb is stable. Subjective Date/time seen: 07/18/19 16:45 Interval history: patient is resting in bed. legs hurt. He has low back pain. Wondering if it is the kidneys. Review of Systems Cardiovascular: Cardiovascular: Reports no additional cardiovascular complaints Respiratory: Respiratory: Reports no additional respiratory complaints Gastrointestinal: Gastrointestinal: Reports no additional gastrointestinal complaints Genitourinary: Genitourinary: Reports no additional male genitourinary complaints Exam Narrative: Exam Narrative: Well developed well-nourished in no acute distress Lungs clear Heart regular without rub Abdomen bowel sounds positive soft nontender Extremities no edema No CVA tenderness. He points to sacral area. No tenderness there at all. Skin no rash Objective Data Vital Signs Vital Signs: Vital Signs - 24 hr 07/17/19 22:00 07/18/19 06:00 07/18/19 08:00 Temperature 36.7 C 37.1 C Pulse Rate 107 H 95 95 Respiratory Rate 18 18 18 Blood Pressure 117/52 L 144/70 H Pulse Oximetry 100 99 99 07/18/19 14:00 Temperature 37.5 C Pulse Rate 110 H Respiratory Rate 18 Blood Pressure 128/60 Pulse Oximetry 100 Intake/Output Intake/Output: Intake & Output 07/15/19 07/16/19 07/17/19 07/18/19 23:59 23:59 23:59 23:59 Intake Total 4268 5555 4390 712 Output Total 2550 4050 3550 2400 Balance 1718 1505 840 -8003 Meds/Results Medications: Active Medications Generic Name Dose Route Start Last Admin Trade Name Freq PRN Reason Stop Dose Admin Acetaminophen 1,000 mg 07/16/19
[2019-07-18] MEDS: TRAMADOL HCL 50 MG TABLET PO (16:54)
[2019-07-18 20:28] VITALS: PULSE 106; RESP 18; O2SAT 97
[2019-07-18 22:00] VITALS: BP 122/67; PULSE 100; RESP 16; TEMP 38.3; O2SAT 100
[2019-07-19] MEDS: SODIUM CHLORIDE 0.9% IV 1,000 ML 70 ML IV CONT ×2 (00:14→13:36)
[2019-07-19 03:19] LABS: CK-BB None Detected (None Detected); CK-MB 0 % (<5); CK-MM 73 % (95-100)
[2019-07-19 03:19] LABS: CK-BB None Detected (None Detected); CK-MB 0 % (<5); CK-MM 82 % (95-100)
[2019-07-19 05:53] VITALS: BP 132/63; PULSE 98; RESP 18; TEMP 37.3; O2SAT 100
[2019-07-19 06:21] LABS: Hematocrit 23.3 % (42.0-52.0); Hemoglobin 7.6 g/dL (14.0-18.0); Mean Corpuscular HGB Conc 32.6 g/dl (32-36); Mean Corpuscular Hemoglobin 30.3 pg (26-34); Mean Corpuscular Volume 92.8 fl (80-100); Mean Platelet Volume 9.2 fl (7.4-10.4); Platelet Count Result 205 k/mm3 (150-375); Red Blood Count 2.51 M/mm3 (4.6-6.20); Red Cell Distribution Width 14.9 % (11.5-14.5); White Blood Count 10.9 K/mm3 (4.5-10.0)
[2019-07-19 06:28] LABS: Creatine Kinase 283 U/L (55-170)
[2019-07-19 06:30] LABS: Alanine Aminotransferase 84 U/L (4-50); Albumin Level 2.1 g/dL (3.5-5.1); Alkaline Phosphatase 47 U/L (38-126); Aspartate Amino Transferase 71 U/L (17-59); Bilirubin,Total 0.8 mg/dL (0.2-1.3); Blood Urea Nitrogen 29 mg/dL (9-20); Calcium 7.5 mg/dL (8.4-10.2); Carbon Dioxide 26 mmol/L (22-30); Chloride 104 mmol/L (98-107); Estimated CRCL calculation 99 ml/min; Estimated Glomerular Filt Rate > 60; Glucose 107 mg/dL (75-110); Potassium 4.1 mmol/L (3.4-5.0); Sodium 135 mmol/L (137-145)
--- NOTE | 2019-07-19 11:41 | P.PNIM_ITS ---
Progress Note: A&P Assessment and Plan (1) Anemia due to acute blood loss: Code(s): D62 - Acute posthemorrhagic anemia Status: Acute Assessment and Plan: * 07/16 Hgb 5.7 * 07/16 2 U PRBC * 07/17 Hgb 7.6 * 07/18 7.7 * 07/19 7.6 * No sign/sx of further bleeding (2) DVT (deep venous thrombosis): Qualifiers: DVT location: lower extremity Affected thrombotic vein of extremity: tibial Chronicity: acute Laterality: left Qualified Code(s): I82.442 - Acute embolism and thrombosis of left tibial vein Code(s): I82.409 - Acute embolism and thrombosis of unspecified deep veins of unspecified lower extremity Status: Acute Assessment and Plan: * 07/15 INR 3.0, therefore hold warfarin * 07/16 1.9 * 07/17 INR 1.2 * Anticoagulation problematic * Repeat venous doppler NEGATIVE 07/16 * 07/16 warfarin stopped and Vitamin K 5mg PO given * 07/18 no increased pain or swelling * 07/19 repeat venous doppler and, if negative, home when able to ambulate safely in hallway with walker (3) Acute renal failure: Qualifiers: Acute renal failure type: unspecified Qualified Code(s): N17.9 - Acute kidney failure, unspecified Code(s): N17.9 - Acute kidney failure, unspecified Status: Acute Assessment and Plan: * ARF likely due to rhabdomyolysis * 07/15 creatinine 2.5 * 07/16 creatinine 1.9 * 07/17 creatinine 1.6 * 07/18 creatinine 1.4 * 07/19 creatinine 1.3 * 07/19 d/c ivf (4) Rhabdomyolysis: Qualifiers: Rhabdomyolysis type: non-traumatic Qualified Code(s): M62.82 - Rhabdomyolysis Code(s): M62.82 - Rhabdomyolysis Status: Acute Assessment and Plan: * Probable secondary to drug abuse. * Hydrating aggressively with CK and creatinine improved * Ct pelvis Revealed rhabdo and hematomas * 07/18 resume low dose tramadol for pain * 07/19 CK 283 (5) Drug abuse: Code(s): F19.10 - Other psychoactive substance abuse, uncomplicated Status: Acute Assessment and Plan: * meth and xanax (6) Elevated LFTs: Code(s): R94.5 - Abnormal results of liver function studies Status: Acute Assessment and Plan: * Lab c/w CHRONIC ACTIVE HEPATITIS C * Will require outpatient f/u and treatment (patient and significant other aware) (7) Altered mental status: Qualifiers: Altered mental status type: transient alteration of awareness Qualified Code(s): R40.4 - Transient alteration of awareness Code(s): R41.82 - Altered mental status, unspecified Status: Acute Assessment and Plan: Probable drug-induced or metabolic encephalopathy from the uremia. CT negative and M R revealed small punctate infarct in the right frontal lobe which probably is not contributing to his mental status changes Concerned there may have been some anoxic encephalopathy involved with his continued symptomatology Neuro has seen. Echo normal and no murmer so PAULETTE would be low yield (8) Neuropathic pain: Code(s): M79.2 - Neuralgia and neuritis, unspecified Status: Acute Assessment and Plan: Due to increased drowsiness, stop gabapentin and tramadol. TSH and B12 levels are normal Utilize APAP and tramadol prn Subjective Date/time seen: 07/19/19 11:41 Interval history: Eating better. Moderate to severe leg pain. Worse with movement. A little better this AM No PT yet 07/19. Review of Systems Review of Systems: All systems reviewed & are unremarkable except as noted in HPI and below Exam
--- NOTE | 2019-07-19 11:41 | PM.IMPN ---
Progress Note: A&P Assessment and Plan (1) Anemia due to acute blood loss: Code(s): D62 - Acute posthemorrhagic anemia Status: Acute Assessment and Plan: 07/16 Hgb 5.7 07/16 2 U PRBC 07/17 Hgb 7.6 07/18 7.7 07/19 7.6 No sign/sx of further bleeding (2) DVT (deep venous thrombosis): Qualifiers: DVT location: lower extremity Affected thrombotic vein of extremity: tibial Chronicity: acute Laterality: left Qualified Code(s): I82.442 - Acute embolism and thrombosis of left tibial vein Code(s): I82.409 - Acute embolism and thrombosis of unspecified deep veins of unspecified lower extremity Status: Acute Assessment and Plan: 07/15 INR 3.0, therefore hold warfarin 07/16 1.9 07/17 INR 1.2 Anticoagulation problematic Repeat venous doppler NEGATIVE 07/16 07/16 warfarin stopped and Vitamin K 5mg PO given 07/18 no increased pain or swelling 07/19 repeat venous doppler and, if negative, home when able to ambulate safely in hallway with walker (3) Acute renal failure: Qualifiers: Acute renal failure type: unspecified Qualified Code(s): N17.9 - Acute kidney failure, unspecified Code(s): N17.9 - Acute kidney failure, unspecified Status: Acute Assessment and Plan: ARF likely due to rhabdomyolysis 07/15 creatinine 2.5 07/16 creatinine 1.9 07/17 creatinine 1.6 07/18 creatinine 1.4 07/19 creatinine 1.3 07/19 d/c ivf (4) Rhabdomyolysis: Qualifiers: Rhabdomyolysis type: non-traumatic Qualified Code(s): M62.82 - Rhabdomyolysis Code(s): M62.82 - Rhabdomyolysis Status: Acute Assessment and Plan: Probable secondary to drug abuse. Hydrating aggressively with CK and creatinine improved Ct pelvis Revealed rhabdo and hematomas 07/18 resume low dose tramadol for pain 07/19 CK 283 (5) Drug abuse: Code(s): F19.10 - Other psychoactive substance abuse, uncomplicated Status: Acute Assessment and Plan: meth and xanax (6) Elevated LFTs: Code(s): R94.5 - Abnormal results of liver function studies Status: Acute Assessment and Plan: Lab c/w CHRONIC ACTIVE HEPATITIS C Will require outpatient f/u and treatment (patient and significant other aware) (7) Altered mental status: Qualifiers: Altered mental status type: transient alteration of awareness Qualified Code(s): R40.4 - Transient alteration of awareness Code(s): R41.82 - Altered mental status, unspecified Status: Acute Assessment and Plan: Probable drug-induced or metabolic encephalopathy from the uremia. CT negative and M R revealed small punctate infarct in the right frontal lobe which probably is not contributing to his mental status changes Concerned there may have been some anoxic encephalopathy involved with his continued symptomatology Neuro has seen. Echo normal and no murmer so PAULETTE would be low yield (8) Neuropathic pain: Code(s): M79.2 - Neuralgia and neuritis, unspecified Status: Acute Assessment and Plan: Due to increased drowsiness, stop gabapentin and tramadol. TSH and B12 levels are normal Utilize APAP and tramadol prn Subjective Date/time seen: 07/19/19 11:41 Interval history: Eating better. Moderate to severe leg pain. Worse with movement. A little better this AM No PT yet 07/19. Review of Systems Review of Systems: All systems reviewed & are unremarkable except as noted in HPI and below Exam Narrative: Exam Narrative: HEENT: EOMI, PERRL, pharyngeal mucosa pink and intact NECK: No JVD, adenopathy, or thyromegaly CHEST: Clear to auscultation. Normal effort. HEART: NL S1/S2, regular, no murmur ABDOMEN: BS+, soft, nontender, no mass, no bruits EXTREMITIES: No cyanosis. Edema with 1+ pitting right leg. Mild ecchymosis of right thigh. DP pulses intact bilaterally. NEUROLOGIC: CN intact and symmetric to inspection. Sensation to light touch intact in both feet. MUSCU
[2019-07-19 14:00] VITALS: BP 123/59; PULSE 100; RESP 18; TEMP 36.9; O2SAT 100
--- NOTE | 2019-07-19 14:21 | P.PNNP_ITS ---
Progress Note: A&P Assessment and Plan (1) Acute renal failure: Qualifiers: Acute renal failure type: unspecified Qualified Code(s): N17.9 - Acute kidney failure, unspecified Code(s): N17.9 - Acute kidney failure, unspecified Status: Acute Assessment and Plan: * due to rhabdomyolysis and dehydration/volume depletion * renal ultrasound is normal * Urine output 4350 * Creatinine continues to improve. Current level is 1.4. * Serum immunofixation negative. Lambda is normal. Urine immuno fix negative * TESHA, Anca, complements all negative. * creatinine is about normal. may have a mildly eleveated creatinine at baseline now. * followup with PCP. He can f/u in the office if PCP wishes. (2) Rhabdomyolysis: Qualifiers: Rhabdomyolysis type: non-traumatic Qualified Code(s): M62.82 - Rhabdomyolysis Code(s): M62.82 - Rhabdomyolysis Status: Acute Assessment and Plan: * etiology most likely due to lying on floor for extended period of time. CK is Lower. improved again today Continue supportive therapy Jasmine-1 and AUTO REBUILDER are negative (3) Elevated LFTs: Code(s): R94.5 - Abnormal results of liver function studies Status: Acute Assessment and Plan: * possibly from the rhabdomyolysis but could be from the liver as well * labs are improving along with the CPK * Hepatitis B serolgies are negative; hepatitis C is positive and viral count is positive as well. * Consider follwoup with sales promotion director (4) Altered mental status: Qualifiers: Altered mental status type: transient alteration of awareness Qualified Code(s): R40.4 - Transient alteration of awareness Code(s): R41.82 - Altered mental status, unspecified Status: Acute Assessment and Plan: * seems better. * pt is terse (5) DVT (deep venous thrombosis): Qualifiers: DVT location: lower extremity Affected thrombotic vein of extremity: tibial Chronicity: acute Laterality: left Qualified Code(s): I82.442 - Acute embolism and thrombosis of left tibial vein Code(s): I82.409 - Acute embolism and thrombosis of unspecified deep veins of unspecified lower extremity Status: Acute Assessment and Plan: * off anticoagulation * Repeat venous Dopplers are negative (6) Anemia: Code(s): D64.9 - Anemia, unspecified Status: Acute Assessment and Plan: stools guaiac negative. complicated hematomae related to rhabdo. hb is stable. Subjective Date/time seen: 07/19/19 14:21 Interval history: patient is sitting at the side of the bed. about to walk with PT with a walker. not complaining of pain now.. Review of Systems Cardiovascular: Cardiovascular: Reports no additional cardiovascular complaints Respiratory: Respiratory: Reports no additional respiratory complaints Gastrointestinal: Gastrointestinal: Reports no additional gastrointestinal complaints Genitourinary: Genitourinary: Reports no additional male genitourinary complaints Exam Narrative: Exam Narrative: Well developed well-nourished in no acute distress Lungs clear Heart regular without rub Abdomen bowel sounds positive soft nontender Extremities no edema No CVA tenderness. He points to sacral area. No tenderness there at all. Skin no rash or sq nodules Objective Data Vital Signs Vital Signs: Vital Signs - 24 hr 01
--- NOTE | 2019-07-19 14:21 | PM.PNNEP ---
Progress Note: A&P Assessment and Plan (1) Acute renal failure: Qualifiers: Acute renal failure type: unspecified Qualified Code(s): N17.9 - Acute kidney failure, unspecified Code(s): N17.9 - Acute kidney failure, unspecified Status: Acute Assessment and Plan: due to rhabdomyolysis and dehydration/volume depletion renal ultrasound is normal Urine output 4350 Creatinine continues to improve. Current level is 1.4. Serum immunofixation negative. Lambda is normal. Urine immuno fix negative TESHA, Anca, complements all negative. creatinine is about normal. may have a mildly eleveated creatinine at baseline now. followup with PCP. He can f/u in the office if PCP wishes. (2) Rhabdomyolysis: Qualifiers: Rhabdomyolysis type: non-traumatic Qualified Code(s): M62.82 - Rhabdomyolysis Code(s): M62.82 - Rhabdomyolysis Status: Acute Assessment and Plan: etiology most likely due to lying on floor for extended period of time. CK is Lower. improved again today Continue supportive therapy Jasmine-1 and TILE LAYER are negative (3) Elevated LFTs: Code(s): R94.5 - Abnormal results of liver function studies Status: Acute Assessment and Plan: possibly from the rhabdomyolysis but could be from the liver as well labs are improving along with the CPK Hepatitis B serolgies are negative; hepatitis C is positive and viral count is positive as well. Consider follwoup with crowning inspector (4) Altered mental status: Qualifiers: Altered mental status type: transient alteration of awareness Qualified Code(s): R40.4 - Transient alteration of awareness Code(s): R41.82 - Altered mental status, unspecified Status: Acute Assessment and Plan: seems better. pt is terse (5) DVT (deep venous thrombosis): Qualifiers: DVT location: lower extremity Affected thrombotic vein of extremity: tibial Chronicity: acute Laterality: left Qualified Code(s): I82.442 - Acute embolism and thrombosis of left tibial vein Code(s): I82.409 - Acute embolism and thrombosis of unspecified deep veins of unspecified lower extremity Status: Acute Assessment and Plan: off anticoagulation Repeat venous Dopplers are negative (6) Anemia: Code(s): D64.9 - Anemia, unspecified Status: Acute Assessment and Plan: stools guaiac negative. complicated hematomae related to rhabdo. hb is stable. Subjective Date/time seen: 07/19/19 14:21 Interval history: patient is sitting at the side of the bed. about to walk with PT with a walker. not complaining of pain now.. Review of Systems Cardiovascular: Cardiovascular: Reports no additional cardiovascular complaints Respiratory: Respiratory: Reports no additional respiratory complaints Gastrointestinal: Gastrointestinal: Reports no additional gastrointestinal complaints Genitourinary: Genitourinary: Reports no additional male genitourinary complaints Exam Narrative: Exam Narrative: Well developed well-nourished in no acute distress Lungs clear Heart regular without rub Abdomen bowel sounds positive soft nontender Extremities no edema No CVA tenderness. He points to sacral area. No tenderness there at all. Skin no rash or sq nodules Objective Data Vital Signs Vital Signs: Vital Signs - 24 hr 07/18/19 20:28 07/18/19 22:00 07/19/19 05:53 Temperature 38.3 C H 37.3 C Pulse Rate 106 H 100 98 Respiratory Rate 18 16 18 Blood Pressure 122/67 132/63 Pulse Oximetry 97 100 100 Intake/Output Intake/Output: Intake & Output 07/16/19 07/17/19 07/18/19 07/19/19 23:59 23:59 23:59 23:59 Intake Total 5555 4390 3952 1720 Output Total 4050 3550 4700 1650 Balance 1505 840 -748 70 Meds/Results Medications: Active Medications Generic Name Dose Route Start Last Admin Trade Name Freq PRN Reason Stop Dose Admin Acetaminophen 1,000 m
[2019-07-19 18:43] VITALS: TEMP 39.2
[2019-07-19 18:44] VITALS: TEMP 39.2
[2019-07-19] MEDS: ACETAMINOPHEN 500 MG TABLET 1000 MG PO (18:44)
[2019-07-19 19:44] VITALS: TEMP 37.4
[2019-07-19 22:00] VITALS: BP 120/58; PULSE 121; RESP 16; TEMP 37.7; O2SAT 100
[2019-07-20] MEDS: SODIUM CHLORIDE 0.9% IV 1,000 ML 70 ML IV CONT (01:34)
[2019-07-20 05:58] VITALS: BP 115/62; PULSE 85; RESP 16; TEMP 37.4; O2SAT 100
[2019-07-20 06:19] LABS: Mean Corpuscular HGB Conc 32.9 g/dl (32-36); Mean Corpuscular Hemoglobin 30.4 pg (26-34); Mean Corpuscular Volume 92.5 fl (80-100); Mean Platelet Volume 9.1 fl (7.4-10.4); Platelet Count Result 198 k/mm3 (150-375); Red Blood Count 2.27 M/mm3 (4.6-6.20); Red Cell Distribution Width 14.7 % (11.5-14.5); White Blood Count 7.7 K/mm3 (4.5-10.0)
[2019-07-20 06:22] LABS: Hemoglobin 6.9 g/dL (14.0-18.0)
[2019-07-20 06:37] LABS: Alanine Aminotransferase 99 U/L (4-50); Albumin Level 2.2 g/dL (3.5-5.1); Alkaline Phosphatase 57 U/L (38-126); Aspartate Amino Transferase 89 U/L (17-59); Bilirubin,Total 0.9 mg/dL (0.2-1.3); Blood Urea Nitrogen 27 mg/dL (9-20); Calcium 7.6 mg/dL (8.4-10.2); Carbon Dioxide 27 mmol/L (22-30); Chloride 105 mmol/L (98-107); Estimated CRCL calculation 107 ml/min; Estimated Glomerular Filt Rate > 60; Glucose 92 mg/dL (75-110); Potassium 4.2 mmol/L (3.4-5.0); Sodium 137 mmol/L (137-145)
[2019-07-20 06:43] LABS: Creatine Kinase 264 U/L (55-170)
[2019-07-20 08:24] LABS: Hematocrit 23.3 % (42.0-52.0); Hemoglobin 7.4 g/dL (14.0-18.0)
--- NOTE | 2019-07-20 11:09 | P.PNIM_ITS ---
Progress Note: A&P Assessment and Plan (1) Fever: Qualifiers: Fever type: unspecified Qualified Code(s): R50.9 - Fever, unspecified Code(s): R50.9 - Fever, unspecified Status: Acute Assessment and Plan: * 102.6 AM of 07/20 * at 102.6 with chills/rigors, this is likely NOT due to hematomas * with no focal findings on exam, exclude bactermia due to injection drug use * known chronic hepatitis C * skin exam intact on 07/20 * no focal symptoms to suggest influenza * CXR negative by my reading 07/20 * U/a pending 07/20 * Blood C/s pending 07/20 (2) Anemia due to acute blood loss: Code(s): D62 - Acute posthemorrhagic anemia Status: Acute Assessment and Plan: * 07/16 Hgb 5.7 * 07/16 2 U PRBC * 07/17 Hgb 7.6 * 07/18 7.7 * 07/19 7.6 * 07/20 7.4 * No sign/sx of further bleeding (3) DVT (deep venous thrombosis): Qualifiers: DVT location: lower extremity Affected thrombotic vein of extremity: tibial Chronicity: acute Laterality: left Qualified Code(s): I82.442 - Acute embolism and thrombosis of left tibial vein Code(s): I82.409 - Acute embolism and thrombosis of unspecified deep veins of unspecified lower extremity Status: Acute Assessment and Plan: * 07/15 INR 3.0, therefore hold warfarin * 07/16 1.9 * 07/17 INR 1.2 * Anticoagulation problematic * Repeat venous doppler NEGATIVE 07/16 * 07/16 warfarin stopped and Vitamin K 5mg PO given * 07/18 no increased pain or swelling * 07/19 repeat venous doppler negative, but still moderately high fall risk (4) Acute renal failure: Qualifiers: Acute renal failure type: unspecified Qualified Code(s): N17.9 - Acute kidney failure, unspecified Code(s): N17.9 - Acute kidney failure, unspecified Status: Acute Assessment and Plan: * ARF likely due to rhabdomyolysis * 07/15 creatinine 2.5 * 07/16 creatinine 1.9 * 07/17 creatinine 1.6 * 07/18 creatinine 1.4 * 07/19 creatinine 1.3 * 07/19 d/c ivf * 07/20 1.2 (5) Rhabdomyolysis: Qualifiers: Rhabdomyolysis type: non-traumatic Qualified Code(s): M62.82 - Rhabdomyolysis Code(s): M62.82 - Rhabdomyolysis Status: Acute Assessment and Plan: * Probable secondary to drug abuse. * Hydrating aggressively with CK and creatinine improved * Ct pelvis Revealed rhabdo and hematomas * 07/18 resume low dose tramadol for pain * 07/19 CK 283 (6) Drug abuse: Code(s): F19.10 - Other psychoactive substance abuse, uncomplicated Status: Acute Assessment and Plan: * meth and xanax (7) Elevated LFTs: Code(s): R94.5 - Abnormal results of liver function studies Status: Acute Assessment and Plan: * Lab c/w CHRONIC ACTIVE HEPATITIS C * Will require outpatient f/u and treatment (patient and significant other aware) (8) Altered mental status: Qualifiers: Altered mental status type: transient alteration of awareness Qualified Code(s): R40.4 - Transient alteration of awareness Code(s): R41.82 - Altered mental status, unspecified Status: Acute Assessment and Plan: Probable drug-induced or metabolic encephalopathy from the uremia. CT negative and M R revealed small punctate infarct in the right frontal lobe which probably is not contributing to his mental status changes Concerned there may have been some anoxic encephalopathy involved with his continued symptomatology Neuro has seen. Echo normal and no murmer so PAULETTE would be low yield 07/20 d/w patient (9) Neuropathic elva
--- NOTE | 2019-07-20 11:09 | PM.IMPN ---
Progress Note: A&P Assessment and Plan (1) Fever: Qualifiers: Fever type: unspecified Qualified Code(s): R50.9 - Fever, unspecified Code(s): R50.9 - Fever, unspecified Status: Acute Assessment and Plan: 102.6 AM of 07/20 at 102.6 with chills/rigors, this is likely NOT due to hematomas with no focal findings on exam, exclude bactermia due to injection drug use known chronic hepatitis C skin exam intact on 07/20 no focal symptoms to suggest influenza CXR negative by my reading 07/20 U/a pending 07/20 Blood C/s pending 07/20 (2) Anemia due to acute blood loss: Code(s): D62 - Acute posthemorrhagic anemia Status: Acute Assessment and Plan: 07/16 Hgb 5.7 07/16 2 U PRBC 07/17 Hgb 7.6 07/18 7.7 07/19 7.6 07/20 7.4 No sign/sx of further bleeding (3) DVT (deep venous thrombosis): Qualifiers: DVT location: lower extremity Affected thrombotic vein of extremity: tibial Chronicity: acute Laterality: left Qualified Code(s): I82.442 - Acute embolism and thrombosis of left tibial vein Code(s): I82.409 - Acute embolism and thrombosis of unspecified deep veins of unspecified lower extremity Status: Acute Assessment and Plan: 07/15 INR 3.0, therefore hold warfarin 07/16 1.9 07/17 INR 1.2 Anticoagulation problematic Repeat venous doppler NEGATIVE 07/16 07/16 warfarin stopped and Vitamin K 5mg PO given 07/18 no increased pain or swelling 07/19 repeat venous doppler negative, but still moderately high fall risk (4) Acute renal failure: Qualifiers: Acute renal failure type: unspecified Qualified Code(s): N17.9 - Acute kidney failure, unspecified Code(s): N17.9 - Acute kidney failure, unspecified Status: Acute Assessment and Plan: ARF likely due to rhabdomyolysis 07/15 creatinine 2.5 07/16 creatinine 1.9 07/17 creatinine 1.6 07/18 creatinine 1.4 07/19 creatinine 1.3 07/19 d/c ivf 07/20 1.2 (5) Rhabdomyolysis: Qualifiers: Rhabdomyolysis type: non-traumatic Qualified Code(s): M62.82 - Rhabdomyolysis Code(s): M62.82 - Rhabdomyolysis Status: Acute Assessment and Plan: Probable secondary to drug abuse. Hydrating aggressively with CK and creatinine improved Ct pelvis Revealed rhabdo and hematomas 07/18 resume low dose tramadol for pain 07/19 CK 283 (6) Drug abuse: Code(s): F19.10 - Other psychoactive substance abuse, uncomplicated Status: Acute Assessment and Plan: meth and xanax (7) Elevated LFTs: Code(s): R94.5 - Abnormal results of liver function studies Status: Acute Assessment and Plan: Lab c/w CHRONIC ACTIVE HEPATITIS C Will require outpatient f/u and treatment (patient and significant other aware) (8) Altered mental status: Qualifiers: Altered mental status type: transient alteration of awareness Qualified Code(s): R40.4 - Transient alteration of awareness Code(s): R41.82 - Altered mental status, unspecified Status: Acute Assessment and Plan: Probable drug-induced or metabolic encephalopathy from the uremia. CT negative and M R revealed small punctate infarct in the right frontal lobe which probably is not contributing to his mental status changes Concerned there may have been some anoxic encephalopathy involved with his continued symptomatology Neuro has seen. Echo normal and no murmer so PAULETTE would be low yield 07/20 d/w patient (9) Neuropathic pain: Code(s): M79.2 - Neuralgia and neuritis, unspecified Status: Acute Assessment and Plan: Due to increased drowsiness, stop gabapentin and tramadol. TSH and B12 levels are normal Utilize APAP and tramadol prn Subjective Date/time seen: 07/20/19 11:09 Interval history: Legs feel better. But fever and chills this AM. Admits to injection drug use on 07/09/19. Denied focal symptoms, including UR congestion, h/a, ST, rash, chest pain, sob,
[2019-07-20 11:39] LABS: Influenza Control Positive
[2019-07-20 12:00] LABS: Add Urine Microscopic? YES; Appearance Urine Cloudy (Clear); Bacteria Urine 1+ /hpf; Bilirubin Urine Negative (Negative); Blood Urine 2+ (Negative); Color Urine Yellow (Yellow); Glucose Urine UA Negative (Negative); Ketones Urine Negative (Negative); Leukocyte Esterase Ur 3+ LEU/UL (Negative); Mucus Urine Rare /lpf; Nitrate Urine Positive (Negative); Protein Urine 1+ mg/dL (Negative); RBC Urine 21-50 /hpf (0-2); Specific Grav Ur 1.012 (1.001-1.035); WBC Clumps Urine Present /HPF; WBC Urine 51-75 /hpf
--- NOTE | 2019-07-20 13:43 | PCPTNOTE ---
Patient refused treatment this session. Attempted to be seen three times this date patient continued to state he wasn't goingto do anything because he wasn't going home. Educated patient on importance about mobility and strength which he continued to refused. Stated I walked yesterday the doctor knows what I can and cannot do. Notified nursing of attempts and response.
[2019-07-20 14:00] VITALS: BP 123/60; PULSE 100; RESP 16; TEMP 36.7; O2SAT 100
[2019-07-20] MEDS: ACETAMINOPHEN 500 MG TABLET 1000 MG PO (17:35)
[2019-07-20 21:30] VITALS: BP 121/61; PULSE 99; RESP 16; TEMP 37; O2SAT 100
[2019-07-21] VITALS (10 sets, daily range): BP systolic 109–129; BP diastolic 59–66; PULSE 16–98; RESP 16–100; TEMP 36.6–37.6; O2SAT 96–100
[2019-07-21 03:02] LABS: CK-BB None Detected (None Detected); CK-MB 0 % (<5); CK-MM 80 % (95-100)
[2019-07-21 06:17] LABS: Mean Corpuscular Hemoglobin 30.3 pg (26-34); Mean Corpuscular Volume 91.7 fl (80-100); Platelet Count Result 183 k/mm3 (150-375); Red Blood Count 2.18 M/mm3 (4.6-6.20); Red Cell Distribution Width 14.5 % (11.5-14.5); White Blood Count 6.2 K/mm3 (4.5-10.0)
[2019-07-21 06:27] LABS: Hemoglobin 6.6 g/dL (14.0-18.0)
[2019-07-21 06:31] LABS: Alanine Aminotransferase 102 U/L (4-50); Albumin Level 2.1 g/dL (3.5-5.1); Alkaline Phosphatase 57 U/L (38-126); Aspartate Amino Transferase 104 U/L (17-59); Bilirubin,Total 0.8 mg/dL (0.2-1.3); Blood Urea Nitrogen 22 mg/dL (9-20); Calcium 7.6 mg/dL (8.4-10.2); Carbon Dioxide 26 mmol/L (22-30); Chloride 106 mmol/L (98-107); Estimated CRCL calculation 107 ml/min; Estimated Glomerular Filt Rate > 60; Glucose 117 mg/dL (75-110); Potassium 3.9 mmol/L (3.4-5.0); Sodium 137 mmol/L (137-145)
--- NOTE | 2019-07-21 10:29 | PCOTNOTE ---
Attempted to see patient this AM, patient getting blood. Will re-attempt this PM to see patient for skilled OT.
[2019-07-21] MEDS: ACETAMINOPHEN 500 MG TABLET 1000 MG PO (11:48)
[2019-07-21] MEDS: SODIUM CHLORIDE 0.9% IV 250 ML 30 ML IV CONT (11:56)
--- NOTE | 2019-07-21 13:39 | P.PNIM_ITS ---
Progress Note: A&P Assessment and Plan (1) Fever: Qualifiers: Fever type: unspecified Qualified Code(s): R50.9 - Fever, unspecified Code(s): R50.9 - Fever, unspecified Status: Acute Assessment and Plan: * 102.6 AM of 07/20 * at 102.6 with chills/rigors, this is likely NOT due to hematomas * with no focal findings on exam, exclude bactermia due to injection drug use * known chronic hepatitis C * skin exam intact on 07/20 * no focal symptoms to suggest influenza * CXR negative by my reading 07/20 * U/a 07/20 c/w UTI * Blood and urine C/s pending from 07/20 (2) Anemia due to acute blood loss: Code(s): D62 - Acute posthemorrhagic anemia Status: Acute Assessment and Plan: * 07/16 Hgb 5.7 * 07/16 2 U PRBC * 07/17 Hgb 7.6 * 07/18 7.7 * 07/19 7.6 * 07/20 7.4 * 07/21 6.6, 1 U PRBC given, f/u h/h ordered * No sign/sx of further bleeding (3) DVT (deep venous thrombosis): Qualifiers: DVT location: lower extremity Affected thrombotic vein of extremity: tibial Chronicity: acute Laterality: left Qualified Code(s): I82.442 - Acute embolism and thrombosis of left tibial vein Code(s): I82.409 - Acute embolism and thrombosis of unspecified deep veins of unspecified lower extremity Status: Acute Assessment and Plan: * 07/15 INR 3.0, therefore hold warfarin * 07/16 1.9 * 07/17 INR 1.2 * Anticoagulation problematic * Repeat venous doppler NEGATIVE 07/16 * 07/16 warfarin stopped and Vitamin K 5mg PO given * 07/18 no increased pain or swelling * 07/19 repeat venous doppler negative, but still moderately high fall risk * 07/21 consider repeat venous doppler later this week (4) Acute renal failure: Qualifiers: Acute renal failure type: unspecified Qualified Code(s): N17.9 - Acute kidney failure, unspecified Code(s): N17.9 - Acute kidney failure, unspecified Status: Acute Assessment and Plan: * ARF likely due to rhabdomyolysis * 07/15 creatinine 2.5 * 07/16 creatinine 1.9 * 07/17 creatinine 1.6 * 07/18 creatinine 1.4 * 07/19 creatinine 1.3 * 07/19 d/c ivf * 07/20 1.2 * 07/21 1.2 (5) Rhabdomyolysis: Qualifiers: Rhabdomyolysis type: non-traumatic Qualified Code(s): M62.82 - Rha bdomyolysis Code(s): M62.82 - Rhabdomyolysis Status: Acute Assessment and Plan: * Probable secondary to drug abuse. * Hydrating aggressively with CK and creatinine improved * Ct pelvis Revealed rhabdo and hematomas * 07/18 resume low dose tramadol for pain * 07/19 CK 283 (6) Drug abuse: Code(s): F19.10 - Other psychoactive substance abuse, uncomplicated Status: Acute Assessment and Plan: * meth and xanax (7) Elevated LFTs: Code(s): R94.5 - Abnormal results of liver function studies Status: Acute Assessment and Plan: * Lab c/w CHRONIC ACTIVE HEPATITIS C * Will require outpatient f/u and treatment (patient and significant other aware) (8) Altered mental status: Qualifiers: Altered mental status type: transient alteration of awareness Qualified Code(s): R40.4 - Transient alteration of awareness Code(s): R41.82 - Altered mental status, unspecified Status: Acute Assessment and Plan: Probable drug-induced or metabolic encephalopathy from the uremia. CT negative and M R revealed small punctate infarct in the right frontal lobe which probably is not contributing to his mental status changes Concerned there may have been some anoxic encephalopathy involved with his continued sympto
--- NOTE | 2019-07-21 13:39 | PM.IMPN ---
Progress Note: A&P Assessment and Plan (1) Fever: Qualifiers: Fever type: unspecified Qualified Code(s): R50.9 - Fever, unspecified Code(s): R50.9 - Fever, unspecified Status: Acute Assessment and Plan: 102.6 AM of 07/20 at 102.6 with chills/rigors, this is likely NOT due to hematomas with no focal findings on exam, exclude bactermia due to injection drug use known chronic hepatitis C skin exam intact on 07/20 no focal symptoms to suggest influenza CXR negative by my reading 07/20 U/a 07/20 c/w UTI Blood and urine C/s pending from 07/20 (2) Anemia due to acute blood loss: Code(s): D62 - Acute posthemorrhagic anemia Status: Acute Assessment and Plan: 07/16 Hgb 5.7 07/16 2 U PRBC 07/17 Hgb 7.6 07/18 7.7 07/19 7.6 07/20 7.4 07/21 6.6, 1 U PRBC given, f/u h/h ordered No sign/sx of further bleeding (3) DVT (deep venous thrombosis): Qualifiers: DVT location: lower extremity Affected thrombotic vein of extremity: tibial Chronicity: acute Laterality: left Qualified Code(s): I82.442 - Acute embolism and thrombosis of left tibial vein Code(s): I82.409 - Acute embolism and thrombosis of unspecified deep veins of unspecified lower extremity Status: Acute Assessment and Plan: 07/15 INR 3.0, therefore hold warfarin 07/16 1.9 07/17 INR 1.2 Anticoagulation problematic Repeat venous doppler NEGATIVE 07/16 07/16 warfarin stopped and Vitamin K 5mg PO given 07/18 no increased pain or swelling 07/19 repeat venous doppler negative, but still moderately high fall risk 07/21 consider repeat venous doppler later this week (4) Acute renal failure: Qualifiers: Acute renal failure type: unspecified Qualified Code(s): N17.9 - Acute kidney failure, unspecified Code(s): N17.9 - Acute kidney failure, unspecified Status: Acute Assessment and Plan: ARF likely due to rhabdomyolysis 07/15 creatinine 2.5 07/16 creatinine 1.9 07/17 creatinine 1.6 07/18 creatinine 1.4 07/19 creatinine 1.3 07/19 d/c ivf 07/20 1.2 07/21 1.2 (5) Rhabdomyolysis: Qualifiers: Rhabdomyolysis type: non-traumatic Qualified Code(s): M62.82 - Rhabdomyolysis Code(s): M62.82 - Rhabdomyolysis Status: Acute Assessment and Plan: Probable secondary to drug abuse. Hydrating aggressively with CK and creatinine improved Ct pelvis Revealed rhabdo and hematomas 07/18 resume low dose tramadol for pain 07/19 CK 283 (6) Drug abuse: Code(s): F19.10 - Other psychoactive substance abuse, uncomplicated Status: Acute Assessment and Plan: meth and xanax (7) Elevated LFTs: Code(s): R94.5 - Abnormal results of liver function studies Status: Acute Assessment and Plan: Lab c/w CHRONIC ACTIVE HEPATITIS C Will require outpatient f/u and treatment (patient and significant other aware) (8) Altered mental status: Qualifiers: Altered mental status type: transient alteration of awareness Qualified Code(s): R40.4 - Transient alteration of awareness Code(s): R41.82 - Altered mental status, unspecified Status: Acute Assessment and Plan: Probable drug-induced or metabolic encephalopathy from the uremia. CT negative and M R revealed small punctate infarct in the right frontal lobe which probably is not contributing to his mental status changes Concerned there may have been some anoxic encephalopathy involved with his continued symptomatology Neuro has seen. Echo normal and no murmer so PAULETTE would be low yield 07/20 d/w patient (9) Neuropathic pain: Code(s): M79.2 - Neuralgia and neuritis, unspecified Status: Acute Assessment and Plan: Due to increased drowsiness, stop gabapentin and tramadol. TSH and B12 levels are normal Utilize APAP and tramadol prn Subjective Date/time seen: 07/21/19 13:39 Interval history: Legs feel better but still aching, oozing a
[2019-07-21] MEDS: TRAMADOL HCL 50 MG TABLET PO (14:10)
[2019-07-21 15:12] LABS: Hematocrit 23.4 % (42.0-52.0); Hemoglobin 7.6 g/dL (14.0-18.0)
--- NOTE | 2019-07-21 15:58 | PCPTNOTE ---
Pt refused PT today. Pt educated in the importance of increasing his activity to improve strength and mobility. Pt acknowledged understanding but continued to refuse. Pt states Not today!
[2019-07-22 06:00] VITALS: BP 113/58; PULSE 93; RESP 18; TEMP 36.5; O2SAT 98
[2019-07-22 06:13] LABS: Hematocrit 22.6 % (42.0-52.0); Hemoglobin 7.3 g/dL (14.0-18.0); Mean Corpuscular HGB Conc 32.3 g/dl (32-36); Mean Corpuscular Hemoglobin 29.9 pg (26-34); Mean Corpuscular Volume 92.6 fl (80-100); Mean Platelet Volume 9.7 fl (7.4-10.4); Platelet Count Result 216 k/mm3 (150-375); Red Blood Count 2.44 M/mm3 (4.6-6.20); Red Cell Distribution Width 14.9 % (11.5-14.5); White Blood Count 4.8 K/mm3 (4.5-10.0)
[2019-07-22 06:23] LABS: Creatine Kinase 224 U/L (55-170)
[2019-07-22 06:30] LABS: Alanine Aminotransferase 94 U/L (4-50); Albumin Level 2.2 g/dL (3.5-5.1); Alkaline Phosphatase 58 U/L (38-126); Aspartate Amino Transferase 85 U/L (17-59); Bilirubin,Total 0.8 mg/dL (0.2-1.3); Blood Urea Nitrogen 19 mg/dL (9-20); Calcium 7.6 mg/dL (8.4-10.2); Carbon Dioxide 26 mmol/L (22-30); Chloride 105 mmol/L (98-107); Estimated CRCL calculation 107 ml/min; Estimated Glomerular Filt Rate > 60; Glucose 90 mg/dL (75-110); Potassium 4.1 mmol/L (3.4-5.0); Sodium 135 mmol/L (137-145)
--- NOTE | 2019-07-22 08:06 | PCOTNOTE ---
Attempted to see patient for skilled OT, however, upon entering room patient was sleeping. Therapist approached patient and patient stated, Not now, I'm sleeping. Will re-attempt to see patient later this date.
--- NOTE | 2019-07-22 08:59 | PCOTNOTE ---
Pt refused skilled OT tx this date.
[2019-07-22] MEDS: TRAMADOL HCL 50 MG TABLET PO (11:01)
[2019-07-22 14:00] VITALS: BP 127/66; PULSE 78; RESP 16; O2SAT 100
--- NOTE | 2019-07-22 15:23 | P.PNIM_ITS ---
Progress Note: A&P Assessment and Plan (1) Fever: Qualifiers: Fever type: unspecified Qualified Code(s): R50.9 - Fever, unspecified Code(s): R50.9 - Fever, unspecified Status: Acute Assessment and Plan: * 102.6 AM of 07/20 but afebrile now * at 102.6 with chills/rigors, and now + urine and blood culture with ecoli * with no focal findings on exam, * known chronic hepatitis C * skin exam intact on 07/20 * no focal symptoms to suggest influenza * CXR negative by my reading 07/20 * U/a 07/20 c/w UTI (2) Anemia due to acute blood loss: Code(s): D62 - Acute posthemorrhagic anemia Status: Acute Assessment and Plan: * 07/16 Hgb 5.7 * 07/16 2 U PRBC * 07/17 Hgb 7.6 * 07/18 7.7 * 07/19 7.6 * 07/20 7.4 * 07/21 6.6, 1 U PRBC given, f/u h/h ordered * 07/22 7.3 * No sign/sx of further bleeding (3) DVT (deep venous thrombosis): Qualifiers: DVT location: lower extremity Affected thrombotic vein of extremity: tibial Chronicity: acute Laterality: left Qualified Code(s): I82.442 - Acute embolism and thrombosis of left tibial vein Code(s): I82.409 - Acute embolism and thrombosis of unspecified deep veins of unspecified lower extremity Status: Acute Assessment and Plan: * 07/15 INR 3.0, therefore hold warfarin * 07/16 1.9 * 07/17 INR 1.2 * Anticoagulation problematic * Repeat venous doppler NEGATIVE 07/16! * 07/16 warfarin stopped and Vitamin K 5mg PO given * 07/18 no increased pain or swelling * 07/19 repeat venous doppler negative, and moderately high fall risk (4) Acute renal failure: Qualifiers: Acute renal failure type: unspecified Qualified Code(s): N17.9 - Acute kidney failure, unspecified Code(s): N17.9 - Acute kidney failure, unspecified Status: Acute Assessment and Plan: * ARF likely due to rhabdomyolysis * 07/15 creatinine 2.5 * 07/16 creatinine 1.9 * 07/17 creatinine 1.6 * 07/18 creatinine 1.4 * 07/19 creatinine 1.3 * 07/19 d/c ivf * 07/20 1.2 * 07/21 1.2 and stable at 1.2 today (5) Rhabdomyolysis: Qualifiers: Rhabdomyolysis type: non-traumatic Qualified Code(s): M62.82 - Rhabdomyolysis Code(s): M62.82 - Rhabdomyolysis Status: Acute Assessment and Plan: * Probable secondary to drug abuse. * Hydrating aggressively with CK and creatinine improved * Ct pelvis Revealed rhabdo and hematomas * 07/18 resume low dose tramadol for pain * 07/19 CK 283 07/22 CK 224 (6) Drug abuse: Code(s): F19.10 - Other psychoactive substance abuse, uncomplicated Status: Acute Assessment and Plan: * meth and xanax (7) Elevated LFTs: Code(s): R94.5 - Abnormal results of liver function studies Status: Acute Assessment and Plan: * Lab c/w CHRONIC ACTIVE HEPATITIS C * Will require outpatient f/u and treatment (patient and significant other aware) (8) Altered mental status: Qualifiers: Altered mental status type: transient alteration of awareness Qualified Code(s): R40.4 - Transient alteration of awareness Code(s): R41.82 - Altered mental status, unspecified Status: Acute Assessment and Plan: Probable drug-induced or metabolic encephalopathy from the uremia. CT negative and M R revealed small punctate infarct in the right frontal lobe which probably is not contributing to his mental status changes Concerned there may have been some anoxic encephalopathy involved with his continued symptomatology Neuro has seen. Echo normal
--- NOTE | 2019-07-22 15:23 | PM.IMPN ---
Progress Note: A&P Assessment and Plan (1) Fever: Qualifiers: Fever type: unspecified Qualified Code(s): R50.9 - Fever, unspecified Code(s): R50.9 - Fever, unspecified Status: Acute Assessment and Plan: 102.6 AM of 07/20 but afebrile now at 102.6 with chills/rigors, and now + urine and blood culture with ecoli with no focal findings on exam, known chronic hepatitis C skin exam intact on 07/20 no focal symptoms to suggest influenza CXR negative by my reading 07/20 U/a 07/20 c/w UTI (2) Anemia due to acute blood loss: Code(s): D62 - Acute posthemorrhagic anemia Status: Acute Assessment and Plan: 07/16 Hgb 5.7 07/16 2 U PRBC 07/17 Hgb 7.6 07/18 7.7 07/19 7.6 07/20 7.4 07/21 6.6, 1 U PRBC given, f/u h/h ordered 07/22 7.3 No sign/sx of further bleeding (3) DVT (deep venous thrombosis): Qualifiers: DVT location: lower extremity Affected thrombotic vein of extremity: tibial Chronicity: acute Laterality: left Qualified Code(s): I82.442 - Acute embolism and thrombosis of left tibial vein Code(s): I82.409 - Acute embolism and thrombosis of unspecified deep veins of unspecified lower extremity Status: Acute Assessment and Plan: 07/15 INR 3.0, therefore hold warfarin 07/16 1.9 07/17 INR 1.2 Anticoagulation problematic Repeat venous doppler NEGATIVE 07/16! 07/16 warfarin stopped and Vitamin K 5mg PO given 07/18 no increased pain or swelling 07/19 repeat venous doppler negative, and moderately high fall risk (4) Acute renal failure: Qualifiers: Acute renal failure type: unspecified Qualified Code(s): N17.9 - Acute kidney failure, unspecified Code(s): N17.9 - Acute kidney failure, unspecified Status: Acute Assessment and Plan: ARF likely due to rhabdomyolysis 07/15 creatinine 2.5 07/16 creatinine 1.9 07/17 creatinine 1.6 07/18 creatinine 1.4 07/19 creatinine 1.3 07/19 d/c ivf 1/12 1.2 1 1.2 and stable at 1.2 today (5) Rhabdomyolysis: Qualifiers: Rhabdomyolysis type: non-traumatic Qualified Code(s): M62.82 - Rhabdomyolysis Code(s): M62.82 - Rhabdomyolysis Status: Acute Assessment and Plan: Probable secondary to drug abuse. Hydrating aggressively with CK and creatinine improved Ct pelvis Revealed rhabdo and hematomas 07/18 resume low dose tramadol for pain 07/19 CK 283 07/22 CK 224 (6) Drug abuse: Code(s): F19.10 - Other psychoactive substance abuse, uncomplicated Status: Acute Assessment and Plan: meth and xanax (7) Elevated LFTs: Code(s): R94.5 - Abnormal results of liver function studies Status: Acute Assessment and Plan: Lab c/w CHRONIC ACTIVE HEPATITIS C Will require outpatient f/u and treatment (patient and significant other aware) (8) Altered mental status: Qualifiers: Altered mental status type: transient alteration of awareness Qualified Code(s): R40.4 - Transient alteration of awareness Code(s): R41.82 - Altered mental status, unspecified Status: Acute Assessment and Plan: Probable drug-induced or metabolic encephalopathy from the uremia. CT negative and M R revealed small punctate infarct in the right frontal lobe which probably is not contributing to his mental status changes Concerned there may have been some anoxic encephalopathy involved with his continued symptomatology Neuro has seen. Echo normal and no murmer so PAULETTE would be low yield (9) Neuropathic pain: Code(s): M79.2 - Neuralgia and neuritis, unspecified Status: Acute Assessment and Plan: Due to increased drowsiness, stop gabapentin and tramadol. TSH and B12 levels are normal Utilize APAP and tramadol prn (10) UTI (urinary tract infection): Code(s): N39.0 - Urinary tract infection, site not specified Status: Acute Assessment and Plan: Urine and blood growing
[2019-07-22 22:00] VITALS: BP 119/63; PULSE 92; RESP 20; TEMP 37.2; O2SAT 99
[2019-07-23] MEDS: TRAMADOL HCL 50 MG TABLET PO (02:56)
[2019-07-23 06:00] VITALS: BP 118/65; PULSE 81; RESP 20; TEMP 36.9; O2SAT 99
[2019-07-23 06:22] LABS: Basophils Percent Auto 0.3 % (0.2-1.2); Eosinophils Absolute Auto 0.1 K/mm3 (0-0.3); Eosinophils Percent Auto 2.9 % (0-4.4); Hemoglobin 7.3 g/dL (14.0-18.0); Immature Granulocyte Absolute 0.03 K/mm3 (0.00-0.031); Immature Granulocyte Percent A 0.9 % (0-0.5); Lymphocytes Absolute Auto 0.83 K/mm3 (0.9-3.2); Mean Corpuscular HGB Conc 31.7 g/dl (32-36); Mean Corpuscular Hemoglobin 29.3 pg (26-34); Mean Corpuscular Volume 92.4 fl (80-100); Mean Platelet Volume 9.5 fl (7.4-10.4); Monocytes Absolute Auto 0.6 K/mm3 (0.1-0.6); Monocytes Percent Auto 17.1 % (2.6-8.5); Neutrophils Absolute Auto 1.9 K/mm3 (1.3-6.7); Neutrophils Percent Auto 54.8 % (45.5-73.1); Platelet Count Result 206 k/mm3 (150-375); Red Blood Count 2.49 M/mm3 (4.6-6.20); Red Cell Distribution Width 14.7 % (11.5-14.5); White Blood Count 3.5 K/mm3 (4.5-10.0)
[2019-07-23 06:34] LABS: Albumin Level 2.3 g/dL (3.5-5.1); Blood Urea Nitrogen 17 mg/dL (9-20); Calcium 7.9 mg/dL (8.4-10.2); Carbon Dioxide 25 mmol/L (22-30); Chloride 103 mmol/L (98-107); Creatine Kinase 217 U/L (55-170); Estimated CRCL calculation 127 ml/min; Estimated Glomerular Filt Rate > 60; Glucose 91 mg/dL (75-110); Phosphorus 4.7 mg/dL (2.5-4.5); Sodium 135 mmol/L (137-145)
[2019-07-23 06:35] LABS: INR 1.2; Prothrombin Time 15.1 Seconds (11.1-14.7)
--- NOTE | 2019-07-23 10:02 | PCOTNOTE ---
Pt refused skilled OT treatment this date.
--- NOTE | 2019-07-23 11:01 | PCPTNOTE ---
Patient refused treatment this session, pt reported he did not want to work with PT, even with MAX encouragement.
--- NOTE | 2019-07-23 11:38 | PCNWS ---
Weekly nutritional screen. Patient is tolerating current diet with adequate intake. No weight loss reported. No nutritional needs at this time.
--- NOTE | 2019-07-23 18:06 | P.DS_ITS ---
DS: Diagnosis Admitting Diagnosis Admitting Diagnosis: Acute kidney failure, unspecified Discharge Diagnosis (1) Anemia due to acute blood loss: Code(s): D62 - Acute posthemorrhagic anemia Status: Acute Assessment and Plan: Acute blood loss with hemorrhage into muscle, hematomas * 07/16 Hgb 5.7 * 07/16 2 U PRBC * 07/17 Hgb 7.6 * 07/18 7.7 * 07/19 7.6 * 07/20 7.4 * 07/21 6.6, 1 U PRBC given, f/u h/h ordered * 07/22 7.3 * No sign/sx of further bleeding and the day of discharge hemoglobin is still 7.3 will have CBC drawn within 2 weeks (2) DVT (deep venous thrombosis): Qualifiers: DVT location: lower extremity Affected thrombotic vein of extremity: tibial Chronicity: acute Laterality: left Qualified Code(s): I82.442 - Acute embolism and thrombosis of left tibial vein Code(s): I82.409 - Acute embolism and thrombosis of unspecified deep veins of unspecified lower extremity Status: Acute Assessment and Plan: Initial venous Doppler revealed DVT of left posterior tibial vein. With renal failure patient was placed on IV heparin and transitioned to warfarin. On the he was found to have hemorrhage into the muscle and heparin was discontinued. As his hemoglobin dropped he was transfused and as noted below repeat venous Doppler on the revealed no DVT, anticoagulants were all discontinued * 07/15 INR 3.0, therefore hold warfarin * 07/16 1.9 * 07/17 INR 1.2 * Anticoagulation problematic * Repeat venous doppler NEGATIVE 07/16! * 07/16 warfarin stopped and Vitamin K 5mg PO given * 07/18 no increased pain or swelling * 07/19 repeat venous doppler negative, and moderately high fall risk (3) Acute renal failure: Qualifiers: Acute renal failure type: unspecified Qualified Code(s): N17.9 - Acute kidney failure, unspecified Code(s): N17.9 - Acute kidney failure, unspecified Status: Acute Assessment and Plan: * ARF likely due to rhabdomyolysis * 07/15 creatinine 2.5 * 07/16 creatinine 1.9 * 07/17 creatinine 1.6 * 07/18 creatinine 1.4 * 07/19 creatinine 1.3 * 07/19 d/c ivf * 07/20 1.2 * 07/21 1.2 and stable at 1.2 today * The day of discharge creatinine of 1.0 (4) Rhabdomyolysis: Qualifiers: Rhabdomyolysis type: non-traumatic Qualified Code(s): M62.82 - Rhabdomyolysis Code(s): M62.82 - Rhabdomyolysis Status: Acute Assessment and Plan: * Probable secondary to drug abuse. * Hydrating aggressively with CK and creatinine improved * Ct pelvis Revealed rhabdo and hematomas * 07/18 resume low dose tramadol for pain * 07/19 CK 283 07/22 CK 224 Date of discharge CK had dropped to 217 and muscle pain had all but subsided (5) Drug abuse: Code(s): F19.10 - Other psychoactive substance abuse, uncomplicated Status: Acute Assessment and Plan: * meth and xanax Before discharge again encouraging tube stain from drugs and was given information about rehab from care coordination (6) Elevated LFTs: Code(s): R94.5 - Abnormal results of liver function studies Status: Acute Assessment and Plan: * Lab c/w CHRONIC ACTIVE HEPATITIS C * Will require outpatient f/u and treatment (patient and significant other aware) * Patient was aware of his diagnosis prior to admission and encouraged again to follow up for treatment (7) Altered mental status: Qualifiers: Altered mental status type: transient alteration of awareness Qualified Code(s): R40.4 - Transient alteration of awareness Code(s): R41.82 - Altered men
--- NOTE | 2019-07-23 18:06 | PM.DS ---
DS: Diagnosis Admitting Diagnosis Admitting Diagnosis: Acute kidney failure, unspecified Discharge Diagnosis (1) Anemia due to acute blood loss: Code(s): D62 - Acute posthemorrhagic anemia Status: Acute Assessment and Plan: Acute blood loss with hemorrhage into muscle, hematomas 07/16 Hgb 5.7 07/16 2 U PRBC 07/17 Hgb 7.6 07/18 7.7 07/19 7.6 07/20 7.4 07/21 6.6, 1 U PRBC given, f/u h/h ordered 07/22 7.3 No sign/sx of further bleeding and the day of discharge hemoglobin is still 7.3 will have CBC drawn within 2 weeks (2) DVT (deep venous thrombosis): Qualifiers: DVT location: lower extremity Affected thrombotic vein of extremity: tibial Chronicity: acute Laterality: left Qualified Code(s): I82.442 - Acute embolism and thrombosis of left tibial vein Code(s): I82.409 - Acute embolism and thrombosis of unspecified deep veins of unspecified lower extremity Status: Acute Assessment and Plan: Initial venous Doppler revealed DVT of left posterior tibial vein. With renal failure patient was placed on IV heparin and transitioned to warfarin. On the he was found to have hemorrhage into the muscle and heparin was discontinued. As his hemoglobin dropped he was transfused and as noted below repeat venous Doppler on the revealed no DVT, anticoagulants were all discontinued 07/15 INR 3.0, therefore hold warfarin 07/16 1.9 07/17 INR 1.2 Anticoagulation problematic Repeat venous doppler NEGATIVE 07/16! 07/16 warfarin stopped and Vitamin K 5mg PO given 07/18 no increased pain or swelling 07/19 repeat venous doppler negative, and moderately high fall risk (3) Acute renal failure: Qualifiers: Acute renal failure type: unspecified Qualified Code(s): N17.9 - Acute kidney failure, unspecified Code(s): N17.9 - Acute kidney failure, unspecified Status: Acute Assessment and Plan: ARF likely due to rhabdomyolysis 07/15 creatinine 2.5 07/16 creatinine 1.9 07/17 creatinine 1.6 07/18 creatinine 1.4 07/19 creatinine 1.3 07/19 d/c ivf 07/20 1.2 07/21 1.2 and stable at 1.2 today The day of discharge creatinine of 1.0 (4) Rhabdomyolysis: Qualifiers: Rhabdomyolysis type: non-traumatic Qualified Code(s): M62.82 - Rhabdomyolysis Code(s): M62.82 - Rhabdomyolysis Status: Acute Assessment and Plan: Probable secondary to drug abuse. Hydrating aggressively with CK and creatinine improved Ct pelvis Revealed rhabdo and hematomas 07/18 resume low dose tramadol for pain 07/19 CK 283 07/22 CK 224 Date of discharge CK had dropped to 217 and muscle pain had all but subsided (5) Drug abuse: Code(s): F19.10 - Other psychoactive substance abuse, uncomplicated Status: Acute Assessment and Plan: meth and xanax Before discharge again encouraging tube stain from drugs and was given information about rehab from care coordination (6) Elevated LFTs: Code(s): R94.5 - Abnormal results of liver function studies Status: Acute Assessment and Plan: Lab c/w CHRONIC ACTIVE HEPATITIS C Will require outpatient f/u and treatment (patient and significant other aware) Patient was aware of his diagnosis prior to admission and encouraged again to follow up for treatment (7) Altered mental status: Qualifiers: Altered mental status type: transient alteration of awareness Qualified Code(s): R40.4 - Transient alteration of awareness Code(s): R41.82 - Altered mental status, unspecified Status: Acute Assessment and Plan: Probable drug-induced or metabolic encephalopathy from the uremia. CT negative and M R revealed small punctate infarct in the right frontal lobe which probably is not contributing to his mental status changes Concerned there may have been some anoxic encephalopathy involved with his continued symptomatology Neuro has seen. Echo normal and no murmer so PAULETTE would be low
[2019-07-24 08:59] LABS: Cryoglobulin, QL Negative (Negative)
== END 2019-07-23 13:20 | disposition home or self-care (01) | DRG 469 ==
LOC: ANHED 01:31 → ANHIMU 07:36 → ANH3MEDSUR 14:41 → ANHIMU 07-24 08:17
PROVIDERS: Family Medicine; Internal Medicine; Internal Medicine Nephrology; Admitting Provider Internal Medicine; Emergency Provider General Practice; Visit Provider Internal Medicine
DX: N17.9 Acute kidney failure, unspecified (principal); Z28.21 Immunization not carried out because of patient refusal; D62 Acute posthemorrhagic anemia; M62.82 Rhabdomyolysis; N39.0 Urinary tract infection, site not specified; B96.20 Unspecified Escherichia coli [E. coli] as the cause of diseases classified elsewhere; F15.10 Other stimulant abuse, uncomplicated; F13.10 Sedative, hypnotic or anxiolytic abuse, uncomplicated; F12.10 Cannabis abuse, uncomplicated; F19.10 Other psychoactive substance abuse, uncomplicated; F17.210 Nicotine dependence, cigarettes, uncomplicated; I82.442 Acute embolism and thrombosis of left tibial vein; G93.41 Metabolic encephalopathy; E87.6 Hypokalemia; E87.1 Hypo-osmolality and hyponatremia; B18.2 Chronic viral hepatitis C; R78.81 Bacteremia
CPT/HCPCS: 36415; 36430; 70450; 70551; 71046; 72148; 72192; 76775; 80053; 80069; 80076; 80307; 81001; 82140; 82274; 82550; 82552; 82570; 82595; 82607; 82746; 83516; 83735; 83883; 84100; 84155; 84156; 84165; 84300; 84443; 85014; 85018; 85025; 85027; 85610; 85652; 85730; 85999; 86021; 86038; 86140; 86160; 86162; 86235; 86334; 86335; 86850; 86900; 86901; 86920; 86923; 87040; 87077; 87086; 87088; 87186; 87522; 87804; 93306; 93970; 97110; 97116; 97161; 97166; 97530; 97535; 99285; A9270; J0131; J1644; J2543; J7030; J7050; J7070; J7120; P9016

== ENCOUNTER 2020-05-13 16:25 | Emergency (ER) | payer OTHER, SELFPAY ==
[2020-05-13] VITALS (11 sets, daily range): BP systolic 104–121; BP diastolic 70–76; PULSE 53–72; RESP 12–18; TEMP 36.7; O2SAT 96–99
--- NOTE | ~2020-05-13 | XR_ITS ---
EXAMINATION: XR chest 1V portable DATE: 05/13/2020 17:11 INDICATION: Cough and shortness of breath. TECHNIQUE: A single frontal view of the chest was obtained on 2 radiographs. COMPARISON: Chest 2 views 07/20/2019 FINDINGS: The chest demonstrates clear lungs without pneumonia, pleural effusion, or pneumothorax. Th e heart size is normal. IMPRESSION: 1. No acute cardiopulmonary disease. Reviewed, dictated and finalized at location A. 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
--- NOTE | 2020-05-13 18:07 | ED.GENADULT ---
HPI - General Adult General Chief complaint: Shortness of Breath/Dyspnea Stated complaint: wants a covid test Time Seen by Provider: 05/13/20 16:30 Source: patient Mode of arrival: ambulatory Limitations: no limitations History of Present Illness HPI narrative: Patient presents with chief complaint of occasional cough, body aches, fatigue that began today. Patient states that he is concerned that he may have contracted Covid and wants to be tested. He denies known Covid exposure. He states he has felt warm but has not documented any fever. Patient denies shortness of breath at this time or pain with inspiration. Patient denies lower leg pain. Related Data Home Medications Medication Instructions Recorded Confirmed No Home Medications 07/09/19 07/09/19 Allergies Allergy/AdvReac Type Severity Reaction Status Date / Time No Known Allergies Allergy Mild Verified 07/30/10 15:32 Review of Systems Review of Systems: Narrative: CONSTITUTIONAL: Reports fatigue and body aches denies documented fever EYES: Denies visual changes, redness, or discharge. ENT: Denies rhinorrhea, congestion, sore throat, or otalgia. CARDIOVASCULAR: Denies chest pain, palpitations, or edema. RESPIRATORY: Reports occasional cough GASTROINTESTINAL: Denies abdominal pain, nausea, vomiting, or diarrhea. GENITOURINARY: Denies dysuria or hematuria. SKIN: Denies rash or itching. MUSCULOSKELETAL: Denies back pain, joint pain, or myalgia. NEUROLOGIC: Denies headache, numbness, dizziness, or weakness. PSYCHIATRIC: Denies anxiety or depression. [facility] Past Medical History Medical History (Updated 05/13/20 @ 17:49 by Trevor Pittman PA-C) Anemia DVT (deep venous thrombosis) Healthy adult Surgical History Surgical History No history of previous surgery Family History Family History Mother Unknown family medical history Father Unknown family medical history Social History Social History Smoking packs per day: 2 Smoking cigarettes per day: 40.0 Years smoked: 20 Smoking pack-years: 40.00 Smoking status: Current every day smoker Tobacco type: cigarettes Alcohol intake: never Substance use: current Substance use type: heroin, amphetamines and other Other substance usage details: BENZOS Gender identity (if verbalized by the patient): Male Spiritual care concerns: No Agree to blood products: Yes Exam Narrative: Exam Narrative: GENERAL: Well-appearing, well-nourished, and in no acute distress. HEAD: Normocephalic, atraumatic. EYES: PERRLA and EOMI. ENT: Nares clear, no rhinorrhea or epistaxis. Mucous membranes moist. Bilateral TMs pearly matthews nonbulging NECK: Supple. No adenopathy or masses. CHEST: Clear to auscultation. No respiratory distress. No wheezes rales or rhonchi. No tachypnea, gasping. Patient able to speak in complete sentences without shortness of breath or strain. Patient is able to move without difficulty. HEART: Regular rate and rhythm. No murmur heard. Normal peripheral pulses. EXTREMITIES: Normal range of motion. No edema. SKIN: Warm, dry, no rash. NEURO: No focal deficits. Alert and oriented x3. PSYCH: Normal mood and affect. Course Vital Signs Vital signs: Vital Signs Temperature 98.1 F 05/13/20 16:32 Pulse Rate 65 05/13/20 16:32 Respiratory Rate 18 05/13/20 16:32 Blood Pressure 119/76 05/13/20 16:32 Pulse Oximetry 97 05/13/20 16:32 Temperature 98.1 F 05/13/20 16:32 Pulse Rate 65 05/13/20 16:32 Respiratory Rate 18 05/13/20 16:32 Blood Pressure 119/76 05/13/20 16:32 Pulse Oximetry 97 05/13/20 16:32 Medical Decision Making MDM Narrative Medical decision making narrative: Patient vital signs are stable. Patient not experiencing hypoxia while in the ER. Patient has minimal coughing
[2020-05-14 15:20] LABS: SARS-CoV-2 RNA PCR Negative
== END 2020-05-13 18:21 | disposition home or self-care (01) ==
PROVIDERS: Physician Assistant; Emergency Provider Family Medicine
DX: B34.9 Viral infection, unspecified (principal); Z20.828 Contact with and (suspected) exposure to other viral communicable diseases; Z86.718 Personal history of other venous thrombosis and embolism; F17.210 Nicotine dependence, cigarettes, uncomplicated
CPT/HCPCS: 71045; 87081; 87635; 87804; 87880; 99283; C9803; U0003

== ENCOUNTER 2021-03-30 11:54 | Outpatient (CLI) | payer BC, SELFPAY ==
--- NOTE | ~2021-03-30 | XR_ITS ---
EXAMINATION: XR chest 2V 03/30/2021 12:16 INDICATION: History of smoking. PROCEDURE: 2 view chest COMPARISON: 05/13/2020 FINDINGS: The lungs are clear. The cardiomediastinal silhouette is within normal limits. There are no pleural effusions. There is no pneumothorax suspected. IMPRESSION: 1: NO ACUTE CARDIOPULMONARY DISEASE. Reviewed, dictated and finalized at location A.
== END 2021-03-30 11:55 | disposition home or self-care (01) ==
LOC: ANHIMG 12:05
PROVIDERS: PCP Physician Assistant; Visit Provider Physician Assistant
DX: Z01.818 Encounter for other preprocedural examination (principal)
CPT/HCPCS: 71046

== ENCOUNTER 2022-06-10 17:11 | Emergency (ER) | payer BC, SELFPAY ==
[2022-06-10 17:19] VITALS: BP 135/83; PULSE 67; RESP 16; TEMP 36.6; O2SAT 99
--- NOTE | 2022-06-10 17:19 | ED.URI ---
HPI - URI/Sore Throat General Chief Complaint: Upper Respiratory Infection Stated Complaint: cold/flu sx Time Seen by Provider: 06/10/22 17:20 Source: patient and RN notes reviewed Mode of arrival: ambulatory Limitations: no limitations History of Present Illness HPI Narrative: 36-year-old male presents with concern for 2 day history of body aches, congestion, cough. Reports he thinks he has the flu. Reports he missed work yesterday. He reports [id number] medications are not helping. MD elicited complaint: cough and sore throat Related Data Home Medications Medication Instructions Recorded Confirmed alprazolam 2 mg tablet 2 mg PO DIRECTED 06/10/22 06/10/22 Allergies Allergy/AdvReac Type Severity Reaction Status Date / Time No Known Allergies Allergy Mild Verified 06/10/22 17:25 Review of Systems Review of Systems: CONSTITUTIONAL: Reports malaise, chills, sweats, or fever. EYES: Denies visual changes, redness, or discharge. ENT: Reports rhinorrhea, congestion, sinus pain, otalgia and sore throat. CARDIOVASCULAR: Denies chest pain, palpitations, or edema. RESPIRATORY: Reports cough. Denies dyspnea. GASTROINTESTINAL: Denies abdominal pain,vomiting. Reports nausea, diarrhea SKIN: Denies rash or itching. MUSCULOSKELETAL: Reports myalgia. NEUROLOGIC: Reports headache. All systems reviewed & are unremarkable except as noted in HPI and below PMFSH Past Medical History Medical History (Updated 06/10/22 @ 17:29 by Lyn Blanc NP) Anemia DVT (deep venous thrombosis) Healthy adult Surgical History Surgical History No history of previous surgery Family History Family History Mother Unknown family medical history Father Unknown family medical history Social History Social History Smoking packs per day: 2 Smoking cigarettes per day: 40.0 Years smoked: 20 Smoking pack-years: 40.00 Smoking status: Current every day smoker Tobacco type: cigarettes Alcohol intake: never Substance use: current Substance use type: heroin, amphetamines and other Other substance usage details: BENZOS Gender identity (if verbalized by the patient): Male Spiritual care concerns: No Agree to blood products: Yes Comments At time of signature, agree with nursing past medical, surgical, social and family history. There is no relevant family history pertinent to the presenting complaint Exam Narrative: GENERAL: Well-appearing, well-nourished, and in no acute distress. HEAD: Normocephalic EYES: PERRLA, conjunctivae clear ENT: Nares clear, turbinates edematous and erythematous, clear discharge. Mucous membranes moist. TM pearly matthews with dull light reflex bilaterally; no tragal tenderness. Oropharynx not erythematous without lesions. Tonsils not enlarged and without exudate, no drooling, no hoarseness, no trismus, uvula midline. NECK: Supple. No lymphadenopathy CHEST: Clear to auscultation, breath sounds equal. No wheezing, rhonchi, rales, or stridor. No respiratory distress, speaks in full sentences. HEART: Regular rate and rhythm. No murmur heard. SKIN: Warm, dry, no rash. NEURO: Alert and oriented x3. PSYCH: Normal mood and affect Course Course Emergency Course: Patient is aware of diagnosis, understands and agrees to treatment plan. Anticipatory guidance given. Patient agrees to follow-up as directed and is aware of reasons to seek care at the emergency department. Portions of this record may have been created with voice recognition software Level of Care: Express Care Visit Vital Signs Vital signs: Reviewed. MDM - URI/Sore Throat MDM Narrative Medical decision making narrative: Differential diagnosis considered: Saunders virus, strep pharyngitis, allergic rhinitis, upper respiratory tract infection, sinusitis, rhinosinusi
== END 2022-06-10 17:32 | disposition home or self-care (01) ==
PROVIDERS: Emergency Provider Nurse Practitioner
DX: J10.1 Influenza due to other identified influenza virus with other respiratory manifestations (principal); F17.210 Nicotine dependence, cigarettes, uncomplicated; Z86.718 Personal history of other venous thrombosis and embolism
CPT/HCPCS: 87804; 99213; G0463

== ENCOUNTER 2022-09-17 13:58 | Emergency (ER) | payer BC, SELFPAY ==
[2022-09-17 14:00] VITALS: BP 104/70; PULSE 120; RESP 14; TEMP 36.9; O2SAT 98
--- NOTE | 2022-09-17 14:11 | ED.LOWEXIN ---
HPI - Extremity Injury (Lower) General Chief Complaint: Extremity Injury, Lower Stated Complaint: left ankle pain Time Seen by Provider: 09/17/22 14:10 Source: patient Mode of arrival: ambulatory Limitations: no limitations History of Present Illness HPI Narrative: Sabas is a 36-year-old male patient presenting to the clinic today with complaints of left ankle/foot pain x2 days. He reports no known injury. Has bruising to the distal foot as well as redness and swelling. History of DVT, drug abuse. Related Data Home Medications Medication Instructions Recorded Confirmed alprazolam 2 mg tablet 2 mg PO DIRECTED 06/10/22 09/17/22 gabapentin 300 mg capsule 600 mg PO TID 09/17/22 09/17/22 naltrexone microspheres 380 mg 380 mg IM DIRECTED 09/17/22 09/17/22 intramuscular suspension,extended release (Vivitrol) Allergies Allergy/AdvReac Type Severity Reaction Status Date / Time No Known Allergies Allergy Mild Verified 09/17/22 14:07 Review of Systems Review of Systems: Pertinent positives per HPI. Patient denies any fever, chills, rash, headache, visual changes, dizziness, cough, runny nose, sore throat, shortness of breath, chest pain, palpitations, nausea, vomiting, diarrhea, constipation, abdominal pain, or any urinary issues. [facility] Past Medical History Medical History Anemia DVT (deep venous thrombosis) Healthy adult Surgical History Surgical History No history of previous surgery Family History Family History Mother Unknown family medical history Father Unknown family medical history Social History Social History Smoking packs per day: 2 Smoking cigarettes per day: 40.0 Years smoked: 20 Smoking pack-years: 40.00 Smoking status: Current every day smoker Tobacco type: cigarettes Alcohol intake: never Substance use: current Substance use type: heroin, amphetamines and other Other substance usage details: BENZOS Gender identity (if verbalized by the patient): Male Spiritual care concerns: No Agree to blood products: Yes Comments At the time of my signature, I reviewed and agree with the nursing past medical, surgical, social, and family history. There is no relevant family history pertinent to the patient complaint. Exam Narrative: General: Well-developed, well nourished, in no apparent distress Head: Normocephalic, atraumatic. Cardio: Regular rate and rhythm, s1 and s2 normal, no murmur appreciated. Resp: Clear to auscultation bilaterally, no rhonchi, rales, wheezing or rubs. Musculoskeletal: No deformity, tender to light palpation over the lateral and dorsal foot and ankle-bruising noted over the distal dorsal foot into the toes, very limited range of motion due to edema and pain, puncture wound noted to the bottom of the left foot with possible foreign body, muscle strength strong and equal, 2+ pitting edema, peripheral pulse strong, limping gait and station Course Course Emergency Course: Portions of this record may have been created with voice recognition software. Level of Care: Express Care Visit Vital Signs Vital signs: Vital signs reviewed Transfer Transfered to: [facility] Transportation: Other (Private car) Transfer rationale: Cellulitis of the left foot and ankle rule out osteomyelitis, DVT Accepting physician: Janet Transfer comments: TRANSFER VIA PRIVATE CAR MDM - Extremity Injury (Lower) MDM Narrative Medical decision making narrative: At the time of visit patient sitting in exam chair. States he is in excruciating pain to the left foot and ankle. No known injury. I suspect patient may have a puncture wound to the bottom of his foot with cellulitis rule out osteomyelitis, he also has histor
== END 2022-09-17 14:24 | disposition home or self-care (01) ==
PROVIDERS: Emergency Provider Nurse Practitioner Family; PCP Physician Assistant
DX: L03.116 Cellulitis of left lower limb (principal); F17.210 Nicotine dependence, cigarettes, uncomplicated; Z86.718 Personal history of other venous thrombosis and embolism
CPT/HCPCS: 99212; G0463

== ENCOUNTER 2022-09-17 15:26 | Emergency (ER) | payer BC, SELFPAY ==
--- NOTE | ~2022-09-17 | XR_ITS ---
Left ankle Technique: AP, oblique, and lateral views were obtained. Clinical History: Pain Findings: There is a transverse, nondisplaced fracture at the base of fifth metatarsal. No other frac ture or dislocation seen. Ankle mortise and other visualized joint spaces are preserved. Soft tissue s are otherwise unremarkable. Impression: Transverse, nondisplaced fracture of the base of fifth metatarsal. Reviewed, dictated and finalized at location M. Impression: Transverse, nondisplaced fracture of the base of fifth metatarsal.
--- NOTE | ~2022-09-17 | XR_ITS ---
Left foot Technique: AP, oblique, and lateral views were obtained. Clinical History: Pain Findings: There is a transverse, traumatic, nearly nondisplaced fracture of the base the fifth metata rsal. Possible mild comminution. No other fracture or dislocation seen.. Joint spaces are preserved w ithout erosive or degenerative change. Soft tissues are unremarkable. Impression: Fracture of the base of the fifth metatarsal, as detailed above. Reviewed, dictated and finalized at location M. Impression: Fracture of the base of the fifth metatarsal, as detailed above.
[2022-09-17 15:53] VITALS: BP 114/70; PULSE 100; RESP 16; TEMP 36.9; O2SAT 100
[2022-09-17 17:38] LABS: Basophils Absolute Auto 0.1 K/mm3 (0.0-0.1); Basophils Percent Auto 0.5 % (0.2-1.2); Eosinophils Absolute Auto 0.3 K/mm3 (0-0.3); Eosinophils Percent Auto 2.8 % (0-4.4); Hematocrit 46.1 % (42.0-52.0); Hemoglobin 15.6 g/dL (14.0-18.0); Immature Granulocyte Absolute 0.07 K/mm3 (0.00-0.031); Immature Granulocyte Percent A 0.6 % (0-0.5); Lymphocytes Absolute Auto 2.54 K/mm3 (0.9-3.2); Lymphocytes Percent Auto 21.8 % (18.3-44.2); Mean Corpuscular HGB Conc 33.8 g/dl (32-36); Mean Corpuscular Volume 91.5 fl (80-100); Mean Platelet Volume 9.6 fl (7.4-10.4); Monocytes Percent Auto 8.2 % (2.6-8.5); Neutrophils Absolute Auto 7.7 K/mm3 (1.3-6.7); Neutrophils Percent Auto 66.1 % (45.5-73.1); Platelet Count Result 222 k/mm3 (150-375); Red Blood Count 5.04 M/mm3 (4.6-6.20); Red Cell Distribution Width 13.6 % (11.5-14.5); White Blood Count 11.6 K/mm3 (4.5-10.0)
--- NOTE | 2022-09-17 17:40 | PC.NURSE ---
Pt being pushed in wheelchair by son to car in hospital parking lot at this time. Pt alert and talking with son during exit at this time. Skin pink and dry. Resp non-labored.
[2022-09-17 17:49] LABS: INR 1.1
[2022-09-17 17:50] LABS: Partial Thromboplastin Time 26.9 SECONDS (22.3-36.8)
[2022-09-17 17:51] LABS: Alanine Aminotransferase 48 U/L (6-50); Albumin Level 4.2 g/dL (3.5-5.1); Alkaline Phosphatase 86 U/L (38-126); Anion Gap 6 mmol/L (8-16); Aspartate Amino Transferase 32 U/L (17-59); Bilirubin,Total 0.5 mg/dL (0.2-1.3); Blood Urea Nitrogen 12 mg/dL (9-20); Calcium 8.8 mg/dL (8.4-10.2); Carbon Dioxide 26 mmol/L (22-30); Chloride 104 mmol/L (98-107); Estimated CRCL calculation 143 ml/min; Estimated Glomerular Filt Rate > 60; Glucose 102 mg/dL (65-110); Potassium 4.3 mmol/L (3.4-5.0); Sodium 136 mmol/L (137-145)
[2022-09-17 17:55] LABS: CRP 1.2 mg/dL (<1.0)
--- NOTE | 2022-09-17 18:14 | PC.NURSE ---
Pt called for re vitals at this time with no response.
== END 2022-09-17 18:14 | disposition left against medical advice (07) ==
PROVIDERS: Emergency Provider Nurse Practitioner Family; PCP Physician Assistant
DX: M25.572 Pain in left ankle and joints of left foot (principal)
CPT/HCPCS: 36415; 73610; 73630; 80053; 85025; 85610; 85730; 86140; 87040; 99199

== ENCOUNTER 2022-09-18 18:23 | Emergency (ER) | payer BC, SELFPAY ==
--- NOTE | 2022-09-18 18:26 | ED.CPR ---
HPI - CPR General Chief Complaint: Cardiac Arrest/CPR Stated Complaint: od/code blue Time Seen by Provider: 09/18/22 18:26 History of Present Illness HPI narrative: This is a 32 [id number] male presenting in cardiac arrest. History is provided from EMS. Patient was reportedly found down unresponsive in the bathroom. Unknown downtime. The initial call said unresponsive with some breathing. By the time EMS arrived, the patient was pulseless with no respiratory effort. He was in asystole. Patient was intubated with a 7-1/2 tube. He was easy to bag with adequate saturations. He received a total of 10 mg of Narcan as well as 4-5 rounds of epi. Compressions were continued per ACLS guidelines. He remained in asystole the entire time. On arrival, patient continues to be in asystole. Ronaldo is ongoing. Review of Systems Review of Systems: ROS unobtainable: Yes unobtainable due to endotracheal tube, unobtainable due to medical condition and unobtainable due to mental status Exam Narrative: GENERAL: Unresponsive, intubated, being bagged HEAD: Normocephalic, atraumatic. EYES: Pupils are greater than 6 mm bilaterally and unresponsive, they are equal ENT: Nares clear, dry mucous membranes NECK: Supple. CHEST: Patient is intubated, being bagged, positive breath sounds bilaterally HEART: Pulseless, asystole on monitor ABDOMEN: Soft, nontender, nondistended EXTREMITIES: Unresponsive SKIN: pale, cyanotic NEURO: unresponsive PSYCH: Unresponsive MDM - Cardiac Arrest/CPR MDM Narrative Medical decision making narrative: 26-year-old male presenting in asystole with 35 to 40 minutes of known downtime, status post 10 mg of Narcan, intubation, 5 rounds of epinephrine. Patient continues to be bagged on arrival. There is an IO in place for access. Patient was given 2 A of bicarb as well as another round of epi. This makes for approximately 6 rounds of epinephrine at this time. At next pulse check, bedside ultrasound was performed and reveals complete cardiac standstill. There is no evidence of any cardiac activity. At this point decision was made to cease resuscitation. Time of 1824. Discharge Plan Discharge Follow-up/Referrals: UNKNOWN,DOCTOR [Primary Care Provider] -
--- NOTE | 2022-09-18 19:00 | PC.NURSE ---
182 Pt arrived to facility on stretcher with EMS with Ronaldo on and CPR in progress, EPI dose given by EMS in bay with, no pulse reported in bay per EMS 10mg NARCAN given and 4 rounds of EPI given IO MECHANICAL EQUIPMENT TEST ENGINEER with ETT 7.5 24cm at the teeth establish MECHANICAL EQUIPMENT TEST ENGINEER and en route. IO established to left tibia with NS infusing with pressure bag. No obvious deformity to pt, bruising noted to left foot. Skin dusky and cyanic, resp assisted by ETT and bag. EMS reports approximately [place] of 40min to time of arrival to ED. 1820 Pt transferred to hospital stretcher and CPR continued, IO in left tibia with NS infusing with pressure bag 1821 1 amp of bicarb given via IO at this time per Dr. Armendariz by Janet, RN 1822 EPI given per Marcello by DARIN Gonzales at this time via IO. CPR continued per Alexsander for 2 min after EPI dose 1824 CPR paused, Pulse check at this time, asystole, Dr. Armendariz at bedside performing cardiac US, reporting no cardiac wall movement at this time. Time of at 182. Flight Kitchen Manager called at 1835, Flight Kitchen Manager at facility at 1900 for eval. MTS called at 1848, referral number of [id number] by Gal Schilling, pt is NOT a candidate for transplant donor with PMH of meth and heroin use.
--- NOTE | 2022-09-18 19:35 | PC.NURSE ---
ETT and IO removed at this time.
--- NOTE | 2022-09-18 20:15 | PC.NURSE ---
Pt PCP Prashant Yates-[facility] office called and neonatologist service [employer] number given for neonatologist notification. This nurse spoke to a Angela through [employer] but provider Prashant Yates was not in system. Website information of overseeing provider of [facility] not provided. Core Machine Operator aware and stated he can call at later time to notify but loan servicing representative office will sign cert.
--- NOTE | 2022-09-18 20:47 | PC.NURSE ---
[facility] here for moss picker. Staff from home and this nurse applied shroud and transferred body to stretcher without issues and pt departed with home staff at this time.
== END 2022-09-18 18:26 | disposition expired ==
PROVIDERS: Emergency Provider Emergency Medicine; PCP Physician Assistant
DX: I46.9 Cardiac arrest, cause unspecified (principal)
CPT/HCPCS: 92950; 99285; J0171